=== PATIENT | male | born 1945 | race Caucasian/White ===

== ENCOUNTER 2021-03-19 16:49 | Inpatient (IN) | payer OTHER ==
[2021-03-19] MEDS ORDERED: Polyethylene Glycol 3350 Powder 17 GM Packet PO PRN (19:14)
[2021-03-19] MEDS ORDERED: Sodium Chloride 0.9% 10 ML Syringe FLUSH PRN (19:14)
[2021-03-19] MEDS ORDERED: Ondansetron 4 MG/2 ML SDV IV PRN (19:14)
[2021-03-19] MEDS ORDERED: Acetaminophen 325 MG Tab PO PRN (19:14)
--- NOTE | 2021-03-19 19:30 | PCM.HP.2 ---
H&P History of Present Illness - General Date of Service: 03/19/21 Admit Problem/Dx: Admission Diagnosis/Problem Admission Diagnosis/Problem Hypoxia Source of Information: Patient, Old Records, Provider, RN Notes Reviewed History Limitations: Reports: No Limitations - History of Present Illness Initial Comments - Free Text/Narative: Mr. Reza is a 75-year-old gentleman who was admitted as a direct admission from [facility] in [facility] where he had been boarded in the emergency department because of lack of beds. He was admitted there because of progressive weakness and lightheadedness with shortness of breath. On evaluation in their emergency department he was found to be anemic with a hemoglobin of 7.4 as well as hypoxic. He first became ill around 13 February and developed progressive symptoms of cough weakness and shortness of breath. He was seen and evaluated on February 19 and at that time tested positive for Covid with hypoxia secondary to bilateral Covid pneumonia. He was hospitalized for 2 weeks at the [facility] in [place]. As part of that evaluation CT scan of the chest was obtained and he was found to have bilateral pulmonary emboli. He was started on anticoagulation and discharged home on Eliquis. After that hospitalization he was discharged home on supplemental oxygen at 2 L/min via nasal cannula. After discharge she initially felt well but approximately 5 days ago began to experience progressive weakness and lightheadedness. He did experience 1 episode of syncope. He typically has black stools because of iron supplement and had noted no obvious change in his stools. He has no prior history of GI bleeding or ulcer disease. He was seen in the [place] emergency department on March 16 because of his progressive symptoms. At that time he was found to be anemic and also hypoxic. CT scan of the chest was obtained which showed no evidence of new pulmonary emboli but did document bilateral pulmonary infiltrates. They were unable to transfer him to a higher level of care so he was boarded in their emergency department until today when he was excepted in transfer here. He is receive diuretic therapy through the weekend and had a good diuresis without significant improvement in symptoms. He was transfused 2 units of red blood cells and his hemoglobin has remained stable since transfusion with no evidence of active bleeding. He is also been started on broad-spectrum IV antibiotic therapy with vancomycin and meropenem. CRP had been significantly elevated in the 20s and today had improved to 7. He has required high level of supplemental oxygen, currently at 40 L and 65% FiO2. Subjectively he feels significantly improved over the past few days but does become short of breath and desaturates with fairly minimal exertion. - Related Data Allergies/Adverse Reactions: Allergies Allergy/AdvReac Type Severity Reaction Status Date / Time acetaminophen [From Vicodin] Allergy Disorientat Verified 03/19/21 19:05 ion cefepime Allergy Other Verified 03/19/21 19:05 hydrocodone [From Vicodin] Allergy Disorientat Verified 03/19/21 19:05 ion morphine Allergy Disorientat Verified 03/19/21 19:05 ion Penicillins Allergy Rash Verified 03/19/21 19:05 Sulfa (Sulfonamide Allergy Rash Verified 03/19/21 19:05 Antibiotics) Home Medications: Home Meds Cyproheptadine HCl 4 mg PO BEDTIME 03/19/21 [History] DULoxetine HCl [Cymbalta] 30 mg PO BID 03/19/21 [History] Docusate Sodium 100 mg PO DAILY 03/19/21 [History] Ferrous Sulfate 325 mg PO BID 03/19/21 [History] Gabapentin [Neurontin] 1,200 mg PO BID 03/19/21 [History] Losartan Potassium 50 mg PO DAILY 03/19/21 [History] Metoprolol Succinate 50 mg PO QAM 03/19/21 [History] Mirtazapine 30 mg PO BEDTIME 03/19/21 [History] Multivitamin 1 tab PO DAILY 03/19/21 [History] Oxybutynin 5 mg PO DAILY 03/19/21 [History] Sennosides/Docusate Sodium [Senna-Docusate Sodium Tablet] 1 - 2 tab PO BID 03/19/21 [History] Thiamine [Vitamin B-1] 100 mg PO DAILY 03/19/21 [History] atorvaSTATin [Lipitor] 40 mg PO BEDTIME 03/19/21 [History] Past Medical History HEENT History: Reports: Hard of Hearing, Impaired Vision Cardiovascular History: Reports: Blood Clots/VTE/DVT, Hypertension, SOB on Exertion Respiratory History: Reports: COPD, PE, SOB Genitourinary History: Reports: Other (See Below) Other Genitourinary History: bladder cancer [id number] Musculoskeletal History: Reports: Arthritis, Neck Pain, Chronic Other Musculoskeletal History: neck plates Neurological History: Reports: TIA Psychiatric History: Reports: PTSD Hematologic History: Reports: Blood Transfusion(s) Immunologic History: Reports: None Oncologic (Cancer) History: Reports: Bladder - Infectious Disease History Infectious Disease History: Reports: Chicken Pox - Past Surgical History HEENT Surgical History: Reports: LASIK Respiratory Surgical History: Reports: None Male Surgical History: Reports: None Social & Family History - Tobacco Use Tobacco Use Status *Q: Former Tobacco User Years of Tobacco use: 50 Packs/Tins Daily: 0.5 Used Tobacco, but Quit: Yes Month/Year Tobacco Last Used: 01/2021 Second Hand Smoke Exposure: No - Caffeine Use Caffeine Use: Reports: Coffee - Alcohol Use Days Per Week of Alcohol Use: 1 Number of Drinks Per Day: 1 Total Drinks Per Week: 1 Date of Last Drink: 01/26/21 - Recreational Drug Use Recreational Drug Use: No H&P Review of Systems - Review of Systems: Review Of Systems: See Below General: Reports: Malaise, Weakness, Fatigue. Denies: Fever, Chills HEENT: Reports: No Symptoms Pulmonary: Reports: Shortness of Breath. Denies: Wheezing, Pleuritic Chest Pain, Cough, Sputum, Hemoptysis Cardiovascular: Reports: Dyspnea on Exertion, Lightheadedness. Denies: Chest Pain, Palpitations, Orthopnea, PND, Edema Gastrointestinal: Reports: No Symptoms Genitourinary: Reports: Retention. Denies: Dysuria, Frequency, Burning, Pain Musculoskeletal: Reports: No Symptoms Skin: Reports: No Symptoms Psychiatric: Reports: No Symptoms Neurological: Reports: No Symptoms Hematologic/Lymphatic: Reports: No Symptoms Immunologic: Reports: No Symptoms Exam - Exam Exam: See Below - Vital Signs Vital Signs: Last Vital Signs Temp 98.1 F 03/19/21 18:20 Pulse 67 03/19/21 18:20 Resp 18 03/19/21 18:20 BP 106/42 L 03/19/21 18:20 Pulse Ox 97 03/19/21 18:20 Weight: 1873 lb 6.4 oz - Exam Quality Assessment: Supplemental Oxygen, Urinary Catheter, DVT Prophylaxis General: Alert, Oriented, Cooperative, Moderate Distress HEENT: Conjunctiva Clear, Hearing Intact, Mucosa Moist & Callahan, Normal Nasal Septum, Posterior Pharynx Clear, Pupils Equal Neck: Supple, Trachea Midline, +2 Carotid Pulse wo Bruit Lungs: Decreased Breath Sounds. No: Crackles, Rales, Rhonchi, Wheezing Cardiovascular: Regular Rate, Regular Rhythm, Normal S1, Normal S2. No: Systolic Murmur, Diastolic Murmur GI/Abdominal Exam: Soft, Non-Tender, No Organomegaly, No Distention Back Exam: Normal Inspection, Full Range of Motion Extremities: Non-Tender, No Pedal Edema Skin: Warm, Dry, Intact Neurological: Cranial Nerves Intact, Strength Equal Bilateral, Normal Speech, Normal Tone, Sensation Intact. No: Focal Deficit Neuro Extensive - Mental Status: Alert, Oriented x3, Normal Mood/Affect, Normal Cognition, Memory Intact Sepsis Event Note - Focused Exam Vital Signs: Vital Signs Temp Pulse Resp BP Pulse Ox 03/19/21 18:20 98.1 F 67 18 106/42 L 97 *Q Meaningful Use (ADM) - VTE *Q VTE Pharmacological Contraindications *Q: Active Hemorrhage - VTE Risk Assess *Q Each Risk Factor Represents 1 Point: Serious lung disease including pneumonia, Abnormal Pulmonary Function (COPD) Total Score 1 Point Risk Factors: 2 Each Risk Factor Represents 2 Points: Malignancy (present or previous) Total Score 2 Point Risk Factors: 2 Each Risk Factor Represents 3 Points: Age 75 Years or Greater, History of DVT/PE Total Score 3 Point Risk Factors: 6 Each Risk Factor Represents 5 Points: None Total Score 5 Point Risk Factors: 0 Venous Thromboembolism Risk Factor Score *Q: 10 Problem List Initiated/Reviewed/Updated: Yes Orders Last 24hrs: Active Orders 24 hr Category Date Time Status Patient Status [ADT] Routine ADT 03/19/21 19:14 Ordered Height and Weight [RC] DAILY Care 03/19/21 19:14 Ordered Intake and Output [RC] QSHIFT Care 03/19/21 19:14 Ordered Notify Provider Vital Signs [RC] ASDIRECTED Care 03/19/21 19:14 Ordered Oxygen Therapy [RC] PRN Care 03/19/21 19:14 Ordered Pulse Oximetry [RC] CONTINUOUS Care 03/19/21 19:15 Ordered Up With Assistance [RC] ASDIRECTED Care 03/19/21 19:14 Ordered Up to Chair [RC] QID Care 03/19/21 19:14 Ordered VTE/DVT Education [RC] Per Unit Routine Care 03/19/21 19:14 Ordered Vital Signs [RC] Q4H Care 03/19/21 19:14 Ordered Regular Diet [DIET] Diet 03/19/21 Dinner Ordered C-REACTIVE PROTEIN [CHEM] AM Lab 03/20/21 05:11 Ordered CBC WITH AUTO DIFF [HEME] AM Lab 03/20/21 05:11 Ordered COMPREHENSIVE METABOLIC PN,CMP [CHEM] AM Lab 03/20/21 05:11 Ordered D Dimer [D-DIMER QUANTITATIVE] [COAG] AM Lab 03/20/21 05:11 Ordered PROCALCITONIN [CHEM] DAILY Lab 03/19/21 19:30 Ordered Acetaminophen [TylenoL] Med 03/19/21 19:14 Ordered 650 mg PO Q4H PRN Cyproheptadine Med 03/19/21 21:00 Ordered 4 mg PO BEDTIME DULoxetine [Cymbalta] Med 03/19/21 21:00 Ordered 30 mg PO BID Docusate Sodium [Colace] Med 03/20/21 09:00 Ordered 100 mg PO DAILY Enoxaparin [Lovenox] Med 03/19/21 19:30 Ordered 80 mg SUBCUT Q12H Ferrous Sulfate Med 03/19/21 21:00 Ordered 325 mg PO BID Gabapentin [Neurontin] Med 03/19/21 21:00 Ordered 1,200 mg PO BID Losartan [Cozaar] Med 03/20/21 09:00 Ordered 50 mg PO DAILY Meropenem [Merrem] 1 gm Med 03/19/21 19:30 Ordered Sodium Chloride 0.9% [Normal Saline] 100 ml IV Q8H Metoprolol Succinate [Toprol XL] Med 03/20/21 09:00 Ordered 50 mg PO QAM Mirtazapine [Mirtazapine] Med 03/19/21 21:00 Ordered 30 mg PO BEDTIME Ondansetron [Zofran] Med 03/19/21 19:14 Ordered 4 mg IV Q4H PRN Oxybutynin Med 03/20/21 09:00 Ordered 5 mg PO DAILY Pantoprazole [ProTONIX IV] Med 03/19/21 19:15 Ordered 40 mg IV Q12H Sodium Chloride 0.9% [Saline Flush] Med 03/19/21 19:14 Ordered 10 ml FLUSH ASDIRECTED PRN Thiamine [Vitamin B-1] Med 03/20/21 09:00 Ordered 100 mg PO DAILY Vancomycin Med 03/19/21 20:00 Ordered 1 gm IV .PHARMACY TO DOSE atorvaSTATin [Lipitor] Med 03/19/21 21:00 Ordered 40 mg PO BEDTIME methylPREDNISolone Sod Succ [Solu-MEDROL] Med 03/19/21 19:30 Ordered 40 mg IVPUSH Q8H polyethylene glycoL 3350 [MiraLAX] Med 03/19/21 19:14 Ordered 17 gm PO DAILY PRN Saline Lock Insert [OM.PC] Routine Oth 03/19/21 19:14 Ordered VTE Pharmacological Contraindications [AST] Per Unit Oth 03/19/21 19:14 Ordered Routine Resuscitation Status Routine Resus Stat 03/19/21 19:14 Ordered Medication Orders Acetaminophen (Acetaminophen 325 Mg Tab) 650 mg PO Q4H PRN PRN Reason: Pain (Mild 1-3)/fever Cyproheptadine HCl (Cyproheptadine 4 Mg Tab) 4 mg PO BEDTIME DELMI Docusate Sodium (Docusate Sodium 100 Mg Cap) 100 mg PO DAILY DELMI Duloxetine HCl (Duloxetine 30 Mg Cap) 30 mg PO BID DELMI Enoxaparin Sodium (Enoxaparin 80 Mg/0.8 Ml Syringe) 80 mg SUBCUT Q12H DELMI Ferrous Sulfate (Ferrous Sulfate 325 Mg Tab) 325 mg PO BID DELMI Meropenem 1 gm/ Sodium (Chloride) 100 mls @ 200 mls/hr IV Q8H DELMI Losartan Potassium (Losartan 50 Mg Tab) 50 mg PO DAILY DELMI Methylprednisolone Sodium Succinate (Methylprednisolone Sodium Succinate 40 Mg/1 Ml Sdv) 40 mg IVPUSH Q8H DELMI Metoprolol Succinate (Metoprolol Succinate 50 Mg Tab.Er) 50 mg PO QAM [facility] Non-Formulary Medication (Atorvastatin [Lipitor]) 40 mg PO BEDTIME DELMI Non-Formulary Medication (Gabapentin [Neurontin]) 1,200 mg PO BID DELMI Non-Formulary Medication (Mirtazapine [Mirtazapine]) 30 mg PO BEDTIME DELMI Ondansetron HCl (Ondansetron 4 Mg/2 Ml Sdv) 4 mg IV Q4H PRN PRN Reason: Nausea/Vomiting Oxybutynin Chloride (Oxybutynin 5 Mg Tab) 5 mg PO DAILY DELMI Pantoprazole Sodium (Pantoprazole 40 Mg Vial) 40 mg IV Q12H DELMI Polyethylene Glycol (Polyethylene Glycol 3350 Powder 17 Gm Packet) 17 gm PO DAILY PRN PRN Reason: Constipation Sodium Chloride (Sodium Chloride 0.9% 10 Ml Syringe) 10 ml FLUSH ASDIRECTED PRN PRN Reason: Keep Vein Open Thiamine HCl (Thiamine 100 Mg Tab) 100 mg PO DAILY DELMI Vancomycin HCl (Vancomycin 1 Gm Sdv) 1 gm IV .PHARMACY TO DOSE DELMI Assessment/Plan Comment:: ASSESSMENT AND PLAN ACUTE ON SUBACUTE HYPOXIC RESPIRATORY FAILURE-secondary to underlying COPD, recent Covid pneumonia, bilateral pulmonary emboli, and probable acute bacterial pneumonia. CT scan obtained in [place] showed no evidence of new pulmonary emboli. He has been diuresed over the past few days without significant improvement in oxygenation. Continues to require relatively high level of supplemental oxygen. -Continue supplemental oxygen -Continuous pulse oximetry -Solu-Medrol 40 mg IV every 8 hours BACTERIAL PNEUMONIA-most likely cause of significant worsening of shortness of breath and hypoxia. -Blood and bacterial cultures obtained in [place] and are pending -Continue current antibiotic therapy with vancomycin and meropenem PROBABLE GI BLEED-significant drop in hemoglobin noted associated with symptoms of weakness and lightheadedness. Hemoglobin has been stable following transfusion of 2 units of red blood cells with no further evidence of active bleeding. -Serial hemoglobin levels -Protonix 40 mg IV every 12 hours -Hold on endoscopy until respiratory status has stabilized ACUTE BLOOD LOSS ANEMIA-likely secondary to recent GI bleed -Management as above BILATERAL PULMONARY EMBOLI-associated with recent COVID-19 infection and pneumonia -Lovenox 80 mg subcu every 12 hours -Discontinue Lovenox with any further evidence of active bleeding URINARY RETENTION-identified while he was in [place] and a urinary catheter was placed at that time -Start Flomax 0.4 mg p.o. daily -Attempt to remove urinary catheter in a few days MAINTENANCE ISSUES -DVT prophylaxis; Lovenox as above -GI prophylaxis; Protonix as above -Aquino catheter; currently in place because of urinary retention -Nutrition; regular diet -Nicotine dependence; not required CODE STATUS-full code ADMISSION STATUS-patient will be admitted to inpatient status, expect at least a 2 night hospital stay for evaluation and management of problems as outlined above. At the time of this admission I do not reasonably expected evaluation and management of this problem will require more than a 96 hour hospital stay. DISPOSITION-anticipate discharge to home after the hospital stay. PRIMARY CARE PROVIDER-patient is from out of the community and receives his [facility] care in [facility] - Mortality Measure Prognosis:: Good
[2021-03-19] MEDS ORDERED: Vancomycin 1 GM SDV IV SCH (20:00)
[2021-03-19] MEDS: Meropenem 1 GM in Sodium Chloride 0.9% 100 ML IV SCH (20:33)
[2021-03-19] MEDS: Pantoprazole 40 MG Vial IV SCH (20:33)
[2021-03-19] MEDS: methylPREDNISolone Sodium Succinate 40 MG/1 ML SDV IVPUSH SCH (20:34)
[2021-03-19] MEDS: atorvaSTATin 20 MG Tab PO SCH (20:45)
[2021-03-19] MEDS: Mirtazapine 15 MG Tab PO SCH (20:45)
[2021-03-19] MEDS: DULoxetine 30 MG Cap PO SCH (20:45)
[2021-03-19] MEDS: Enoxaparin 80 MG/0.8 ML Syringe SUBCUT SCH (20:45)
[2021-03-19] MEDS: Gabapentin 400 MG Cap PO SCH (20:45)
[2021-03-19] MEDS: Ferrous Sulfate 325 MG Tab PO SCH (20:45)
[2021-03-19] MEDS: Cyproheptadine 4 MG Tab PO SCH (20:53)
[2021-03-20] MEDS: Meropenem 1 GM in Sodium Chloride 0.9% 100 ML IV SCH ×3 (03:35→20:16)
[2021-03-20] MEDS: methylPREDNISolone Sodium Succinate 40 MG/1 ML SDV IVPUSH SCH ×3 (03:35→20:14)
[2021-03-20] MEDS: Pantoprazole 40 MG Vial IV SCH ×2 (07:49→20:11)
[2021-03-20] MEDS: Gabapentin 400 MG Cap PO SCH ×2 (09:00→20:25)
[2021-03-20] MEDS: Losartan 50 MG Tab PO SCH (09:00)
[2021-03-20] MEDS: DULoxetine 30 MG Cap PO SCH ×2 (09:00→20:28)
[2021-03-20] MEDS: Oxybutynin 5 MG Tab PO SCH (09:00)
[2021-03-20] MEDS: Thiamine 100 MG Tab PO SCH (09:00)
[2021-03-20] MEDS: Enoxaparin 80 MG/0.8 ML Syringe SUBCUT SCH (09:00)
[2021-03-20] MEDS: Docusate Sodium 100 MG Cap PO SCH (09:00)
[2021-03-20] MEDS: Ferrous Sulfate 325 MG Tab PO SCH ×2 (09:00→20:26)
[2021-03-20] MEDS: Metoprolol Succinate 50 MG Tab.ER PO SCH (09:01)
[2021-03-20] MEDS ORDERED: Tiotropium BR/Olodaterol HCL 4 GM Inhalation Spray 2.5mcg/1 dose; 10 doses INH SCH (12:00)
[2021-03-20] MEDS: Tiotropium BR/Olodaterol HCL 4 GM Inhalation Spray 2.5mcg/1 dose; 10 doses INH SCH (12:45)
--- NOTE | 2021-03-20 16:08 | PCM.PN ---
- General Info Date of Service: 03/20/21 Subjective Update: Mr. Reza has continued to require high flow humidified oxygen since admission. Oxygen requirements have increased mildly since yesterday. Subjectively he feels improved and is somewhat stronger. Hemoglobin has remained relatively stable and there has been no evidence of active bleeding thus far. Functional Status: Reports: Tolerating Diet, Urinating - Review of Systems General: Reports: Weakness, Fatigue. Denies: Fever, Chills Pulmonary: Reports: Shortness of Breath, Cough. Denies: Pleuritic Chest Pain, Sputum, Hemoptysis, Wheezing Cardiovascular: Reports: Dyspnea on Exertion. Denies: Chest Pain, Palpitations, Orthopnea, PND, Edema, Lightheadedness Gastrointestinal: Reports: No Symptoms Genitourinary: Reports: No Symptoms - Patient Data Vitals - Most Recent: Last Vital Signs Temp 98.4 F 03/20/21 15:00 Pulse 69 03/20/21 15:00 Resp 18 03/20/21 15:00 BP 116/86 03/20/21 15:00 Pulse Ox 96 03/20/21 15:00 Weight - Most Recent: 192 lb 9.6 oz I&O - Last 24 Hours: Intake & Output 03/20/21 03/20/21 03/20/21 06:59 14:59 22:59 Intake Total 400 2130 Output Total 850 Balance -450 2130 Lab Results Last 24 Hours: Laboratory Results - last 24 hr 03/19/21 03/20/21 03/20/21 Range/Units 19:36 04:15 04:15 WBC 11.6 H (4.5-11.0) K/uL RBC 3.00 L (4.30-5.90) M/uL Hgb 8.5 L (12.0-15.0) g/dL Hct 27.4 L (40.0-54.0) % MCV 91 (80-98) fL MCH 28 (27-31) pg MCHC 31 L (32-36) % Plt Count 269 (150-400) K/uL Neut % (Auto) 87.5 H (36-66) % Lymph % (Auto) 8.1 L (24-44) % [place] % (Auto) 4.2 (2-6) % Eos % (Auto) 0.1 L (2-4) % Baso % (Auto) 0.1 (0-1) % D-Dimer, Quantitative 2677.39 H (0.0-500.0) ng/mL Sodium (140-148) mmol/L Potassium (3.6-5.2) mmol/L Chloride (100-108) mmol/L Carbon Dioxide (21-32) mmol/L Anion Gap (5.0-14.0) mmol/L BUN (7-18) mg/dL Creatinine (0.8-1.3) mg/dL Est Cr Clr Drug Dosing mL/min Estimated GFR (MDRD) (>60) Glucose (74-106) mg/dL Calcium (8.5-10.1) mg/dL Total Bilirubin (0.2-1.0) mg/dL AST (15-37) U/L ALT (12-78) U/L Alkaline Phosphatase (46-116) U/L C-Reactive Protein (0.0-0.3) mg/dL Total Protein (6.4-8.2) g/dL Albumin (3.4-5.0) g/dL Globulin (2.3-3.5) g/dL Albumin/Globulin Ratio (1.2-2.2) Procalcitonin 0.12 ng/mL 03/20/21 Range/Units 04:15 WBC (4.5-11.0) K/uL RBC (4.30-5.90) M/uL Hgb (12.0-15.0) g/dL Hct (40.0-54.0) % MCV (80-98) fL MCH (27-31) pg MCHC (32-36) % Plt Count (150-400) K/uL Neut % (Auto) (36-66) % Lymph % (Auto) (24-44) % [place] % (Auto) (2-6) % Eos % (Auto) (2-4) % Baso % (Auto) (0-1) % D-Dimer, Quantitative (0.0-500.0) ng/mL Sodium 140 (140-148) mmol/L Potassium 4.4 (3.6-5.2) mmol/L Chloride 103 (100-108) mmol/L Carbon Dioxide 33 H (21-32) mmol/L Anion Gap 8.4 (5.0-14.0) mmol/L BUN 26 H (7-18) mg/dL Creatinine 0.7 L (0.8-1.3) mg/dL Est Cr Clr Drug Dosing 94.15 mL/min Estimated GFR (MDRD) > 60 (>60) Glucose 125 H (74-106) mg/dL Calcium 8.3 L (8.5-10.1) mg/dL Total Bilirubin 0.2 (0.2-1.0) mg/dL AST 15 (15-37) U/L ALT 17 (12-78) U/L Alkaline Phosphatase 73 (46-116) U/L C-Reactive Protein 3.33 H (0.0-0.3) mg/dL Total Protein 5.8 L (6.4-8.2) g/dL Albumin 1.7 L (3.4-5.0) g/dL Globulin 4.1 H (2.3-3.5) g/dL Albumin/Globulin Ratio 0.4 L (1.2-2.2) Procalcitonin ng/mL Med Orders - Current: Current Medications Acetaminophen (Acetaminophen 325 Mg Tab) 650 mg PO Q4H PRN PRN Reason: Pain (Mild 1-3)/fever Atorvastatin Calcium (Atorvastatin 20 Mg Tab) 40 mg PO BEDTIME [facility] Last Admin: 03/19/21 20:45 Dose: 40 mg Documented by: Cyproheptadine HCl (Cyproheptadine 4 Mg Tab) 4 mg PO BEDTIME [facility] Last Admin: 03/19/21 20:53 Dose: 4 mg Documented by: Docusate Sodium (Docusate Sodium 100 Mg Cap) 100 mg PO DAILY [facility] Last Admin: 03/20/21 09:00 Dose: 100 mg Documented by: Duloxetine HCl (Duloxetine 30 Mg Cap) 30 mg PO BID [facility] Last Admin: 03/20/21 09:00 Dose: 30 mg Documented by: Enoxaparin Sodium (Enoxaparin 80 Mg/0.8 Ml Syringe) 80 mg SUBCUT Q12H [facility] Last Admin: 03/20/21 09:00 Dose: 80 mg Documented by: Ferrous Sulfate (Ferrous Sulfate 325 Mg Tab) 325 mg PO BID [facility] Last Admin: 03/20/21 09:00 Dose: 325 mg Documented by: Gabapentin (Gabapentin 400 Mg Cap) 1,200 mg PO BID [facility] Last Admin: 03/20/21 09:00 Dose: 1,200 mg Documented by: Meropenem 1 gm/ Sodium (Chloride) 100 mls @ 200 mls/hr IV Q8H [facility] Last Admin: 03/20/21 12:44 Dose: 200 mls/hr Documented by: Vancomycin HCl 1.25 gm/ Sodium (Chloride) 250 mls @ 166.667 mls/hr IV Q12H [facility] Last Admin: 03/20/21 09:05 Dose: 166.667 mls/hr Documented by: Losartan Potassium (Losartan 50 Mg Tab) 50 mg PO DAILY [facility] Last Admin: 03/20/21 09:00 Dose: 50 mg Documented by: Methylprednisolone Sodium Succinate (Methylprednisolone Sodium Succinate 40 Mg/1 Ml Sdv) 40 mg IVPUSH Q8H [facility] Last Admin: 03/20/21 11:43 Dose: 40 mg Documented by: Metoprolol Succinate (Metoprolol Succinate 50 Mg Tab.Er) 50 mg PO QAM [facility] Last Admin: 03/20/21 09:01 Dose: 50 mg Documented by: Mirtazapine (Mirtazapine 15 Mg Tab) 30 mg PO BEDTIME [facility] Last Admin: 03/19/21 20:45 Dose: 30 mg Documented by: Mometasone Furoate (Mometasone Furoate Hfa 200 Mcg/Puff 13 Gm Inhaler) 0 gm INH BIDRT [facility] Ondansetron HCl (Ondansetron 4 Mg/2 Ml Sdv) 4 mg IV Q4H PRN PRN Reason: Nausea/Vomiting Oxybutynin Chloride (Oxybutynin 5 Mg Tab) 5 mg PO DAILY [facility] Last Admin: 03/20/21 09:00 Dose: 5 mg Documented by: Pantoprazole Sodium (Pantoprazole 40 Mg Vial) 40 mg IV Q12H [facility] Last Admin: 03/20/21 07:49 Dose: 40 mg Documented by: Polyethylene Glycol (Polyethylene Glycol 3350 Powder 17 Gm Packet) 17 gm PO DAILY PRN PRN Reason: Constipation Sodium Chloride (Sodium Chloride 0.9% 10 Ml Syringe) 10 ml FLUSH ASDIRECTED PRN PRN Reason: Keep Vein Open Thiamine HCl (Thiamine 100 Mg Tab) 100 mg PO DAILY [facility] Last Admin: 03/20/21 09:00 Dose: 100 mg Documented by: Discontinued Medications Methylprednisolone Sodium Succinate (Methylprednisolone Sodium Succinate 40 Mg/1 Ml Sdv) 40 mg IVPUSH Q8H [facility] Last Admin: 03/20/21 03:35 Dose: 40 mg Documented by: Vancomycin HCl (Vancomycin 1 Gm Sdv) 1 gm IV .PHARMACY TO DOSE [facility] Stop: 03/20/21 08:00 - Exam Quality Assessment: Supplemental Oxygen, Urine Catheter, DVT Prophylaxis General: Alert, Oriented, Cooperative, Moderate Distress Lungs: Decreased Breath Sounds, Crackles. No: Rales, Rhonchi, Wheezing Cardiovascular: Regular Rate, Regular Rhythm, No Murmurs GI/Abdominal Exam: Soft, Non-Tender, No Organomegaly, No Distention Extremities: Non-Tender, No Pedal Edema - Patient Data Lab Results Last 24 hrs: Laboratory Results - last 24 hr 03/19/21 03/20/21 03/20/21 Range/Units 19:36 04:15 04:15 WBC 11.6 H (4.5-11.0) K/uL RBC 3.00 L (4.30-5.90) M/uL Hgb 8.5 L (12.0-15.0) g/dL Hct 27.4 L (40.0-54.0) % MCV 91 (80-98) fL MCH 28 (27-31) pg MCHC 31 L (32-36) % Plt Count 269 (150-400) K/uL Neut % (Auto) 87.5 H (36-66) % Lymph % (Auto) 8.1 L (24-44) % [place] % (Auto) 4.2 (2-6) % Eos % (Auto) 0.1 L (2-4) % Baso % (Auto) 0.1 (0-1) % D-Dimer, Quantitative 2677.39 H (0.0-500.0) ng/mL Sodium (140-148) mmol/L Potassium (3.6-5.2) mmol/L Chloride (100-108) mmol/L Carbon Dioxide (21-32) mmol/L Anion Gap (5.0-14.0) mmol/L BUN (7-18) mg/dL Creatinine (0.8-1.3) mg/dL Est Cr Clr Drug Dosing mL/min Estimated GFR (MDRD) (>60) Glucose (74-106) mg/dL Calcium (8.5-10.1) mg/dL Total Bilirubin (0.2-1.0) mg/dL AST (15-37) U/L ALT (12-78) U/L Alkaline Phosphatase (46-116) U/L C-Reactive Protein (0.0-0.3) mg/dL Total Protein (6.4-8.2) g/dL Albumin (3.4-5.0) g/dL Globulin (2.3-3.5) g/dL Albumin/Globulin Ratio (1.2-2.2) Procalcitonin 0.12 ng/mL 03/20/21 Range/Units 04:15 WBC (4.5-11.0) K/uL RBC (4.30-5.90) M/uL Hgb (12.0-15.0) g/dL Hct (40.0-54.0) % MCV (80-98) fL MCH (27-31) pg MCHC (32-36) % Plt Count (150-400) K/uL Neut % (Auto) (36-66) % Lymph % (Auto) (24-44) % [place] % (Auto) (2-6) % Eos % (Auto) (2-4) % Baso % (Auto) (0-1) % D-Dimer, Quantitative (0.0-500.0) ng/mL Sodium 140 (140-148) mmol/L Potassium 4.4 (3.6-5.2) mmol/L Chloride 103 (100-108) mmol/L Carbon Dioxide 33 H (21-32) mmol/L Anion Gap 8.4 (5.0-14.0) mmol/L BUN 26 H (7-18) mg/dL Creatinine 0.7 L (0.8-1.3) mg/dL Est Cr Clr Drug Dosing 94.15 mL/min Estimated GFR (MDRD) > 60 (>60) Glucose 125 H (74-106) mg/dL Calcium 8.3 L (8.5-10.1) mg/dL Total Bilirubin 0.2 (0.2-1.0) mg/dL AST 15 (15-37) U/L ALT 17 (12-78) U/L Alkaline Phosphatase 73 (46-116) U/L C-Reactive Protein 3.33 H (0.0-0.3) mg/dL Total Protein 5.8 L (6.4-8.2) g/dL Albumin 1.7 L (3.4-5.0) g/dL Globulin 4.1 H (2.3-3.5) g/dL Albumin/Globulin Ratio 0.4 L (1.2-2.2) Procalcitonin ng/mL Result Diagrams: 03/20/21 04:15 03/20/21 04:15 Sepsis Event Note - Evaluation Sepsis Screening Result: No Definite Risk - Focused Exam Vital Signs: Vital Signs Temp Pulse Pulse Resp BP BP Pulse Ox 03/20/21 15:00 98.4 F 69 18 116/86 96 03/20/21 11:00 98.5 F 73 16 118/42 L 95 03/20/21 09:01 89 119/49 L 03/20/21 09:00 119/49 L 03/20/21 07:00 97.8 F 77 18 151/51 H 98 - Problem List Review Problem List Initiated/Reviewed/Updated: Yes - My Orders Last 24 Hours: My Active Orders 03/19/21 Dinner Regular Diet [DIET] 03/19/21 19:14 Patient Status [ADT] Routine Height and Weight [RC] DAILY Intake and Output [RC] QSHIFT Notify Provider Vital Signs [RC] ASDIRECTED Oxygen Therapy [RC] PRN Up With Assistance [RC] ASDIRECTED Up to Chair [RC] QID Vital Signs [RC] Q4H Acetaminophen [TylenoL] 650 mg PO Q4H PRN Ondansetron [Zofran] 4 mg IV Q4H PRN Sodium Chloride 0.9% [Saline Flush] 10 ml FLUSH ASDIRECTED PRN polyethylene glycoL 3350 [MiraLAX] 17 gm PO DAILY PRN Saline Lock Insert [OM.PC] Routine VTE Pharmacological Contraindications [AST] Per Unit Routine Resuscitation Status Routine 03/19/21 19:15 Pulse Oximetry [RC] CONTINUOUS 03/19/21 20:00 Pantoprazole [ProTONIX IV] 40 mg IV Q12H 03/19/21 20:30 Meropenem [Merrem] 1 gm Sodium Chloride 0.9% [Normal Saline] 100 ml IV Q8H 03/19/21 21:00 Cyproheptadine 4 mg PO BEDTIME DULoxetine [Cymbalta] 30 mg PO BID Enoxaparin [Lovenox] 80 mg SUBCUT Q12H Ferrous Sulfate 325 mg PO BID Gabapentin [Neurontin] 1,200 mg PO BID Mirtazapine [Remeron] 30 mg PO BEDTIME Vancomycin 1.25 gm Sodium Chloride 0.9% [Normal Saline] 250 ml IV Q12H atorvaSTATin [Lipitor] 40 mg PO BEDTIME 03/20/21 09:00 Docusate Sodium [Colace] 100 mg PO DAILY Losartan [Cozaar] 50 mg PO DAILY Metoprolol Succinate [Toprol XL] 50 mg PO QAM Oxybutynin 5 mg PO DAILY Thiamine [Vitamin B-1] 100 mg PO DAILY 03/20/21 12:00 methylPREDNISolone Sod Succ [Solu-MEDROL] 40 mg IVPUSH Q8H 03/20/21 12:30 Tiotropium BR/Olodaterol HCL [Stiolto Respimat] 0 gm INH DAILYRT 03/20/21 17:00 HGB [HEMOGLOBIN] [HEME] Stat 03/20/21 21:00 Mometasone Furoate 200mcg [Asmanex HFA 200mcg] 0 gm INH BIDRT 03/21/21 05:00 CBC WITH AUTO DIFF [HEME] Timed COMPREHENSIVE METABOLIC PN,CMP [CHEM] Timed 03/21/21 08:30 VANCOMYCIN TROUGH [CHEM] Timed - Plan Plan:: ASSESSMENT AND PLAN ACUTE ON SUBACUTE HYPOXIC RESPIRATORY FAILURE-secondary to underlying COPD, recent Covid pneumonia, bilateral pulmonary emboli, and probable acute bacterial pneumonia. CT scan obtained in [place] showed no evidence of new pulmonary emboli. Continues to require relatively high level of supplemental oxygen. -Continue supplemental oxygen -Continuous pulse oximetry -Solu-Medrol 40 mg IV every 8 hours BACTERIAL PNEUMONIA-most likely cause of significant worsening of shortness of breath and hypoxia. -Blood and bacterial cultures obtained in [place] and are pending -Continue current antibiotic therapy with vancomycin and meropenem PROBABLE GI BLEED-significant drop in hemoglobin noted associated with symptoms of weakness and lightheadedness. Hemoglobin has been stable following transfusion of 2 units of red blood cells with no further evidence of active bleeding. -Serial hemoglobin levels -Protonix 40 mg IV every 12 hours -Hold on endoscopy until respiratory status has stabilized ACUTE BLOOD LOSS ANEMIA-likely secondary to recent GI bleed -Management as above BILATERAL PULMONARY EMBOLI-associated with recent COVID-19 infection and pneumonia -Lovenox 80 mg subcu every 12 hours -Discontinue Lovenox with any further evidence of active bleeding URINARY RETENTION-identified while he was in [place] and a urinary catheter was placed at that time -Start Flomax 0.4 mg p.o. daily -Attempt to remove urinary catheter in a few days MAINTENANCE ISSUES -DVT prophylaxis; Lovenox as above -GI prophylaxis; Protonix as above -Aquino catheter; currently in place because of urinary retention -Nutrition; regular diet -Nicotine dependence; not required CODE STATUS-full code ADMISSION STATUS-patient will be admitted to inpatient status, expect at least a 2 night hospital stay for evaluation and management of problems as outlined above. At the time of this admission I do not reasonably expected evaluation a nd management of this problem will require more than a 96 hour hospital stay. DISPOSITION-anticipate discharge to home after the hospital stay. PRIMARY CARE PROVIDER-patient is from out of the community and receives his health care in [facility]
[2021-03-20] MEDS: Mometasone Furoate HFA 200 mcg/Puff 13 GM Inhaler INH SCH (20:22)
[2021-03-20] MEDS: Mirtazapine 15 MG Tab PO SCH (20:25)
[2021-03-20] MEDS: atorvaSTATin 20 MG Tab PO SCH (20:27)
[2021-03-20] MEDS: Cyproheptadine 4 MG Tab PO SCH (20:27)
[2021-03-21] MEDS: methylPREDNISolone Sodium Succinate 40 MG/1 ML SDV IVPUSH SCH ×3 (04:12→20:24)
[2021-03-21] MEDS: Meropenem 1 GM in Sodium Chloride 0.9% 100 ML IV SCH ×3 (04:12→20:25)
[2021-03-21] MEDS: Pantoprazole 40 MG Vial IV SCH ×2 (07:39→20:24)
[2021-03-21] MEDS: Mometasone Furoate HFA 200 mcg/Puff 13 GM Inhaler INH SCH ×2 (07:39→20:26)
[2021-03-21] MEDS: Tiotropium BR/Olodaterol HCL 4 GM Inhalation Spray 2.5mcg/1 dose; 10 doses INH SCH (07:39)
--- NOTE | 2021-03-21 08:23 | PCM.CONS ---
H&P History of Present Illness - General Date of Service: 03/21/21 Admit Problem/Dx: Admission Diagnosis/Problem Admission Diagnosis/Problem Patient was admitted for Covid 19. His hemoglobin was low and a consultation was made to surgery for a Colonoscopy when he is stable. Source of Information: Old Records, Provider - History of Present Illness Initial Comments - Free Text/Narative: Surgery was consulted for anemia. Patient will need an endoscopy to rule out GI Bleed. Patient currently has Covid. - Related Data Allergies/Adverse Reactions: Allergies Allergy/AdvReac Type Severity Reaction Status Date / Time cefepime Allergy Other Verified 03/19/21 19:05 Penicillins Allergy Rash Verified 03/19/21 19:05 Sulfa (Sulfonamide Allergy Rash Verified 03/19/21 19:05 Antibiotics) acetaminophen [From Vicodin] AdvReac Disorientat Verified 03/20/21 09:42 ion hydrocodone [From Vicodin] AdvReac Disorientat Verified 03/20/21 09:42 ion morphine AdvReac Disorientat Verified 03/20/21 09:42 ion Home Medications: Home Meds Cyproheptadine HCl 4 mg PO BEDTIME 03/19/21 [History] DULoxetine HCl [Cymbalta] 30 mg PO BID 03/19/21 [History] Docusate Sodium 100 mg PO DAILY 03/19/21 [History] Ferrous Sulfate 325 mg PO BID 03/19/21 [History] Gabapentin [Neurontin] 1,200 mg PO BID 03/19/21 [History] Losartan Potassium 50 mg PO DAILY 03/19/21 [History] Metoprolol Succinate 50 mg PO QAM 03/19/21 [History] Mirtazapine 30 mg PO BEDTIME 03/19/21 [History] Multivitamin 1 tab PO DAILY 03/19/21 [History] Oxybutynin 5 mg PO DAILY 03/19/21 [History] Sennosides/Docusate Sodium [Senna-Docusate Sodium Tablet] 1 - 2 tab PO BID 03/19/21 [History] Thiamine [Vitamin B-1] 100 mg PO DAILY 03/19/21 [History] atorvaSTATin [Lipitor] 40 mg PO BEDTIME 03/19/21 [History] Mometasone Furoate 200mcg [Asmanex HFA 200mcg] 2 puff PO BID 03/20/21 [History] Tiotropium Br/Olodaterol HCl [Stiolto Respimat Inhal [place]] 2 inhalation PO DAILY 03/20/21 [History] Past Medical History HEENT History: Reports: Hard of Hearing, Impaired Vision Cardiovascular History: Reports: Blood Clots/VTE/DVT, Hypertension, SOB on Exertion Respiratory History: Reports: COPD, PE, SOB Genitourinary History: Reports: Other (See Below) Other Genitourinary History: bladder cancer [id number] Musculoskeletal History: Reports: Arthritis, Neck Pain, Chronic Other Musculoskeletal History: neck plates Neurological History: Reports: TIA Psychiatric History: Reports: PTSD Hematologic History: Reports: Blood Transfusion(s) Immunologic History: Reports: None Oncologic (Cancer) History: Reports: Bladder - Infectious Disease History Infectious Disease History: Reports: Chicken Pox - Past Surgical History HEENT Surgical History: Reports: LASIK Respiratory Surgical History: Reports: None Male Surgical History: Reports: None Social & Family History - Tobacco Use Tobacco Use Status *Q: Former Tobacco User Years of Tobacco use: 50 Packs/Tins Daily: 0.5 Used Tobacco, but Quit: Yes Month/Year Tobacco Last Used: 01/2021 Second Hand Smoke Exposure: No - Caffeine Use Caffeine Use: Reports: Coffee - Alcohol Use Days Per Week of Alcohol Use: 1 Number of Drinks Per Day: 1 Total Drinks Per Week: 1 Date of Last Drink: 01/26/21 - Recreational Drug Use Recreational Drug Use: No H&P Review of Systems - Review of Systems: Review Of Systems: See Below General: Reports: Weakness, Fatigue, Decreased Appetite HEENT: Reports: No Symptoms Pulmonary: Reports: Shortness of Breath, Cough Cardiovascular: Reports: No Symptoms Gastrointestinal: Reports: No Symptoms Genitourinary: Reports: No Symptoms Musculoskeletal: Reports: No Symptoms Skin: Reports: No Symptoms Psychiatric: Reports: No Symptoms Neurological: Reports: Dizziness, Headache, Weakness Hematologic/Lymphatic: Reports: Anemia Immunologic: Reports: Other (Covid) Exam - Exam Exam: Not Obtained Reason Not Obtained: Deferred - Vital Signs Vital Signs: Last Vital Signs Temp 97.7 F 03/21/21 07:08 Pulse 70 03/21/21 07:08 Resp 20 03/21/21 07:08 BP 155/60 H 03/21/21 07:08 Pulse Ox 93 L 03/21/21 07:08 Weight: 192 lb - Patient Data Lab Results Last 24 hrs: Laboratory Results - last 24 hr 03/20/21 03/20/21 03/21/21 Range/Units 16:50 16:54 05:40 WBC 11.0 (4.5-11.0) K/uL RBC 2.97 L (4.30-5.90) M/uL Hgb 7.9 L 8.4 L (12.0-15.0) g/dL Hct 27.3 L (40.0-54.0) % MCV 92 (80-98) fL MCH 28 (27-31) pg MCHC 31 L (32-36) % Plt Count 309 (150-400) K/uL Add Manual Diff Yes Neutrophils % (Manual) 86 H (36-66) % Lymphocytes % (Manual) 12 L (24-44) % Monocytes % (Manual) 2 (2-6) % Sodium (140-148) mmol/L Potassium (3.6-5.2) mmol/L Chloride (100-108) mmol/L Carbon Dioxide (21-32) mmol/L Anion Gap (5.0-14.0) mmol/L BUN (7-18) mg/dL Creatinine (0.8-1.3) mg/dL Est Cr Clr Drug Dosing mL/min Estimated GFR (MDRD) (>60) Glucose (74-106) mg/dL Calcium (8.5-10.1) mg/dL Total Bilirubin (0.2-1.0) mg/dL AST (15-37) U/L ALT (12-78) U/L Alkaline Phosphatase (46-116) U/L Total Protein (6.4-8.2) g/dL Albumin (3.4-5.0) g/dL Globulin (2.3-3.5) g/dL Albumin/Globulin Ratio (1.2-2.2) Blood Type A NEGATIVE Gel Antibody Screen Negative Crossmatch See Detail 03/21/21 Range/Units 05:40 WBC (4.5-11.0) K/uL RBC (4.30-5.90) M/uL Hgb (12.0-15.0) g/dL Hct (40.0-54.0) % MCV (80-98) fL MCH (27-31) pg MCHC (32-36) % Plt Count (150-400) K/uL Add Manual Diff Neutrophils % (Manual) (36-66) % Lymphocytes % (Manual) (24-44) % Monocytes % (Manual) (2-6) % Sodium 139 L (140-148) mmol/L Potassium 5.1 (3.6-5.2) mmol/L Chloride 103 (100-108) mmol/L Carbon Dioxide 33 H (21-32) mmol/L Anion Gap 8.1 (5.0-14.0) mmol/L BUN 20 H (7-18) mg/dL Creatinine 0.7 L (0.8-1.3) mg/dL Est Cr Clr Drug Dosing 94.15 mL/min Estimated GFR (MDRD) > 60 (>60) Glucose 124 H (74-106) mg/dL Calcium 8.4 L (8.5-10.1) mg/dL Total Bilirubin 0.2 (0.2-1.0) mg/dL AST 17 (15-37) U/L ALT 27 (12-78) U/L Alkaline Phosphatase 74 (46-116) U/L Total Protein 5.6 L (6.4-8.2) g/dL Albumin 1.7 L (3.4-5.0) g/dL Globulin 3.9 H (2.3-3.5) g/dL Albumin/Globulin Ratio 0.4 L (1.2-2.2) Blood Type Gel Antibody Screen Crossmatch Result Diagrams: 03/21/21 05:40 03/21/21 05:40 Sepsis Event Note - Evaluation Sepsis Screening Result: No Definite Risk - Focused Exam Vital Signs: Vital Signs Temp Pulse Resp BP Pulse Ox 03/21/21 07:08 97.7 F 70 20 155/60 H 93 L 03/21/21 04:08 97.7 F 77 18 123/53 L 98 03/20/21 23:29 97.5 F 84 20 158/46 H 97 *Q Meaningful Use (ADM) - VTE *Q VTE Pharmacological Contraindications *Q: Active Hemorrhage Consult PN Assessment/Plan Problem List Initiated/Reviewed/Updated: Yes My Orders Last 24 Hours: Will hold on Endoscopy until patient is hemodynamic instability. Evaluate daily. Thank you for this consultation. Candice Vieira 03/21/2021
[2021-03-21] MEDS: Oxybutynin 5 MG Tab PO SCH (08:48)
[2021-03-21] MEDS: DULoxetine 30 MG Cap PO SCH ×2 (08:48→20:26)
[2021-03-21] MEDS: Gabapentin 400 MG Cap PO SCH ×2 (08:48→20:26)
[2021-03-21] MEDS: Thiamine 100 MG Tab PO SCH (08:48)
[2021-03-21] MEDS: Ferrous Sulfate 325 MG Tab PO SCH ×2 (08:48→20:28)
[2021-03-21] MEDS: Losartan 50 MG Tab PO SCH (08:48)
[2021-03-21] MEDS: Docusate Sodium 100 MG Cap PO SCH (08:48)
[2021-03-21] MEDS: Metoprolol Succinate 50 MG Tab.ER PO SCH (08:49)
--- NOTE | 2021-03-21 15:40 | PCM.PN ---
- General Info Date of Service: 03/21/21 Subjective Update: Mr. Reza continues to require high flow humidified oxygen. Oxygenation has not worsened over the last 24 hours. He feels improved with more energy and also feels that he recovers more quickly with exertion. Functional Status: Reports: Tolerating Diet, Urinating - Review of Systems General: Reports: Weakness, Fatigue. Denies: Fever, Chills Pulmonary: Reports: Shortness of Breath. Denies: Pleuritic Chest Pain, Cough, Sputum, Hemoptysis, Wheezing Cardiovascular: Reports: Dyspnea on Exertion. Denies: Chest Pain, Palpitations, Orthopnea, PND, Edema, Lightheadedness Gastrointestinal: Reports: No Symptoms Genitourinary: Reports: No Symptoms - Patient Data Vitals - Most Recent: Last Vital Signs Temp 98.4 F 03/21/21 15:01 Pulse 85 03/21/21 15:01 Resp 22 H 03/21/21 15:01 BP 158/48 H 03/21/21 15:01 Pulse Ox 92 L 03/21/21 15:01 Weight - Most Recent: 194 lb 7.163 oz I&O - Last 24 Hours: Intake & Output 03/21/21 03/21/21 03/21/21 06:59 14:59 22:59 Intake Total 550 2630 Output Total 1800 800 Balance -1250 1830 Lab Results Last 24 Hours: Laboratory Results - last 24 hr 03/20/21 03/20/21 03/21/21 Range/Units 16:50 16:54 05:40 WBC 11.0 (4.5-11.0) K/uL RBC 2.97 L (4.30-5.90) M/uL Hgb 7.9 L 8.4 L (12.0-15.0) g/dL Hct 27.3 L (40.0-54.0) % MCV 92 (80-98) fL MCH 28 (27-31) pg MCHC 31 L (32-36) % Plt Count 309 (150-400) K/uL Add Manual Diff Yes Neutrophils % (Manual) 86 H (36-66) % Lymphocytes % (Manual) 12 L (24-44) % Monocytes % (Manual) 2 (2-6) % Sodium (140-148) mmol/L Potassium (3.6-5.2) mmol/L Chloride (100-108) mmol/L Carbon Dioxide (21-32) mmol/L Anion Gap (5.0-14.0) mmol/L BUN (7-18) mg/dL Creatinine (0.8-1.3) mg/dL Est Cr Clr Drug Dosing mL/min Estimated GFR (MDRD) (>60) Glucose (74-106) mg/dL Calcium (8.5-10.1) mg/dL Total Bilirubin (0.2-1.0) mg/dL AST (15-37) U/L ALT (12-78) U/L Alkaline Phosphatase (46-116) U/L Total Protein (6.4-8.2) g/dL Albumin (3.4-5.0) g/dL Globulin (2.3-3.5) g/dL Albumin/Globulin Ratio (1.2-2.2) Vancomycin Trough (10.0-20.0) ug/mL Blood Type A NEGATIVE Gel Antibody Screen Negative Crossmatch See Detail 03/21/21 03/21/21 Range/Units 05:40 08:25 WBC (4.5-11.0) K/uL RBC (4.30-5.90) M/uL Hgb (12.0-15.0) g/dL Hct (40.0-54.0) % MCV (80-98) fL MCH (27-31) pg MCHC (32-36) % Plt Count (150-400) K/uL Add Manual Diff Neutrophils % (Manual) (36-66) % Lymphocytes % (Manual) (24-44) % Monocytes % (Manual) (2-6) % Sodium 139 L (140-148) mmol/L Potassium 5.1 (3.6-5.2) mmol/L Chloride 103 (100-108) mmol/L Carbon Dioxide 33 H (21-32) mmol/L Anion Gap 8.1 (5.0-14.0) mmol/L BUN 20 H (7-18) mg/dL Creatinine 0.7 L (0.8-1.3) mg/dL Est Cr Clr Drug Dosing 94.15 mL/min Estimated GFR (MDRD) > 60 (>60) Glucose 124 H (74-106) mg/dL Calcium 8.4 L (8.5-10.1) mg/dL Total Bilirubin 0.2 (0.2-1.0) mg/dL AST 17 (15-37) U/L ALT 27 (12-78) U/L Alkaline Phosphatase 74 (46-116) U/L Total Protein 5.6 L (6.4-8.2) g/dL Albumin 1.7 L (3.4-5.0) g/dL Globulin 3.9 H (2.3-3.5) g/dL Albumin/Globulin Ratio 0.4 L (1.2-2.2) Vancomycin Trough 12.7 (10.0-20.0) ug/mL Blood Type Gel Antibody Screen Crossmatch Med Orders - Current: Current Medications Acetaminophen (Acetaminophen 325 Mg Tab) 650 mg PO Q4H PRN PRN Reason: Pain (Mild 1-3)/fever Atorvastatin Calcium (Atorvastatin 20 Mg Tab) 40 mg PO BEDTIME [facility] Last Admin: 03/20/21 20:27 Dose: 40 mg Documented by: Cyproheptadine HCl (Cyproheptadine 4 Mg Tab) 4 mg PO BEDTIME [facility] Last Admin: 03/20/21 20:27 Dose: 4 mg Documented by: Docusate Sodium (Docusate Sodium 100 Mg Cap) 100 mg PO DAILY [facility] Last Admin: 03/21/21 08:48 Dose: Not Given Documented by: Duloxetine HCl (Duloxetine 30 Mg Cap) 30 mg PO BID [facility] Last Admin: 03/21/21 08:48 Dose: 30 mg Documented by: Ferrous Sulfate (Ferrous Sulfate 325 Mg Tab) 325 mg PO BID [facility] Last Admin: 03/21/21 08:48 Dose: 325 mg Documented by: Gabapentin (Gabapentin 400 Mg Cap) 1,200 mg PO BID [facility] Last Admin: 03/21/21 08:48 Dose: 1,200 mg Documented by: Meropenem 1 gm/ Sodium (Chloride) 100 mls @ 200 mls/hr IV Q8H [facility] Last Admin: 03/21/21 11:58 Dose: 200 mls/hr Documented by: Vancomycin HCl 1.5 gm/ Sodium (Chloride) 250 mls @ 166.667 mls/hr IV Q12H [facility] Losartan Potassium (Losartan 50 Mg Tab) 50 mg PO DAILY [facility] Last Admin: 03/21/21 08:48 Dose: 50 mg Documented by: Methylprednisolone Sodium Succinate (Methylprednisolone Sodium Succinate 40 Mg/1 Ml Sdv) 40 mg IVPUSH Q8H [facility] Last Admin: 03/21/21 11:54 Dose: 40 mg Documented by: Metoprolol Succinate (Metoprolol Succinate 50 Mg Tab.Er) 50 mg PO QAM [facility] Last Admin: 03/21/21 08:49 Dose: 50 mg Documented by: Mirtazapine (Mirtazapine 15 Mg Tab) 30 mg PO BEDTIME [facility] Last Admin: 03/20/21 20:25 Dose: 30 mg Documented by: Mometasone Furoate (Mometasone Furoate Hfa 200 Mcg/Puff 13 Gm Inhaler) 0 gm INH BIDRT [facility] Last Admin: 03/21/21 07:39 Dose: 2 puff Documented by: Ondansetron HCl (Ondansetron 4 Mg/2 Ml Sdv) 4 mg IV Q4H PRN PRN Reason: Nausea/Vomiting Oxybutynin Chloride (Oxybutynin 5 Mg Tab) 5 mg PO DAILY [facility] Last Admin: 03/21/21 08:48 Dose: 5 mg Documented by: Pantoprazole Sodium (Pantoprazole 40 Mg Vial) 40 mg IV Q12H [facility] Last Admin: 03/21/21 07:39 Dose: 40 mg Documented by: Polyethylene Glycol (Polyethylene Glycol 3350 Powder 17 Gm Packet) 17 gm PO DAILY PRN PRN Reason: Constipation Sodium Chloride (Sodium Chloride 0.9% 10 Ml Syringe) 10 ml FLUSH ASDIRECTED PRN PRN Reason: Keep Vein Open Tamsulosin HCl (Tamsulosin 0.4 Mg Cap.Er) 0.4 mg PO BEDTIME [facility] Thiamine HCl (Thiamine 100 Mg Tab) 100 mg PO DAILY [facility] Last Admin: 03/21/21 08:48 Dose: 100 mg Documented by: Discontinued Medications Enoxaparin Sodium (Enoxaparin 80 Mg/0.8 Ml Syringe) 80 mg SUBCUT Q12H [facility] Last Admin: 03/20/21 09:00 Dose: 80 mg Documented by: Vancomycin HCl 1.25 gm/ Sodium (Chloride) 250 mls @ 166.667 mls/hr IV Q12H [facility] Last Admin: 03/21/21 09:41 Dose: 166.667 mls/hr Documented by: Methylprednisolone Sodium Succinate (Methylprednisolone Sodium Succinate 40 Mg/1 Ml Sdv) 40 mg IVPUSH Q8H [facility] Last Admin: 03/20/21 03:35 Dose: 40 mg Documented by: Vancomycin HCl (Vancomycin 1 Gm Sdv) 1 gm IV .PHARMACY TO DOSE DELMI Stop: 03/20/21 08:00 - Exam Quality Assessment: Supplemental Oxygen, Urine Catheter, DVT Prophylaxis General: Alert, Oriented, Cooperative, Moderate Distress Lungs: Decreased Breath Sounds, Crackles. No: Rales, Rhonchi, Wheezing Cardiovascular: Regular Rate, Regular Rhythm, No Murmurs GI/Abdominal Exam: Soft, Non-Tender, No Organomegaly, No Distention Extremities: Non-Tender, No Pedal Edema - Patient Data Lab Results Last 24 hrs: Laboratory Results - last 24 hr 03/20/21 03/20/21 03/21/21 Range/Units 16:50 16:54 05:40 WBC 11.0 (4.5-11.0) K/uL RBC 2.97 L (4.30-5.90) M/uL Hgb 7.9 L 8.4 L (12.0-15.0) g/dL Hct 27.3 L (40.0-54.0) % MCV 92 (80-98) fL MCH 28 (27-31) pg MCHC 31 L (32-36) % Plt Count 309 (150-400) K/uL Add Manual Diff Yes Neutrophils % (Manual) 86 H (36-66) % Lymphocytes % (Manual) 12 L (24-44) % Monocytes % (Manual) 2 (2-6) % Sodium (140-148) mmol/L Potassium (3.6-5.2) mmol/L Chloride (100-108) mmol/L Carbon Dioxide (21-32) mmol/L Anion Gap (5.0-14.0) mmol/L BUN (7-18) mg/dL Creatinine (0.8-1.3) mg/dL Est Cr Clr Drug Dosing mL/min Estimated GFR (MDRD) (>60) Glucose (74-106) mg/dL Calcium (8.5-10.1) mg/dL Total Bilirubin (0.2-1.0) mg/dL AST (15-37) U/L ALT (12-78) U/L Alkaline Phosphatase (46-116) U/L Total Protein (6.4-8.2) g/dL Albumin (3.4-5.0) g/dL Globulin (2.3-3.5) g/dL Albumin/Globulin Ratio (1.2-2.2) Vancomycin Trough (10.0-20.0) ug/mL Blood Type A NEGATIVE Gel Antibody Screen Negative Crossmatch See Detail 03/21/21 03/21/21 Range/Units 05:40 08:25 WBC (4.5-11.0) K/uL RBC (4.30-5.90) M/uL Hgb (12.0-15.0) g/dL Hct (40.0-54.0) % MCV (80-98) fL MCH (27-31) pg MCHC (32-36) % Plt Count (150-400) K/uL Add Manual Diff Neutrophils % (Manual) (36-66) % Lymphocytes % (Manual) (24-44) % Monocytes % (Manual) (2-6) % Sodium 139 L (140-148) mmol/L Potassium 5.1 (3.6-5.2) mmol/L Chloride 103 (100-108) mmol/L Carbon Dioxide 33 H (21-32) mmol/L Anion Gap 8.1 (5.0-14.0) mmol/L BUN 20 H (7-18) mg/dL Creatinine 0.7 L (0.8-1.3) mg/dL Est Cr Clr Drug Dosing 94.15 mL/min Estimated GFR (MDRD) > 60 (>60) Glucose 124 H (74-106) mg/dL Calcium 8.4 L (8.5-10.1) mg/dL Total Bilirubin 0.2 (0.2-1.0) mg/dL AST 17 (15-37) U/L ALT 27 (12-78) U/L Alkaline Phosphatase 74 (46-116) U/L Total Protein 5.6 L (6.4-8.2) g/dL Albumin 1.7 L (3.4-5.0) g/dL Globulin 3.9 H (2.3-3.5) g/dL Albumin/Globulin Ratio 0.4 L (1.2-2.2) Vancomycin Trough 12.7 (10.0-20.0) ug/mL Blood Type Gel Antibody Screen Crossmatch Result Diagrams: 03/21/21 05:40 03/21/21 05:40 Sepsis Event Note - Evaluation Sepsis Screening Result: No Definite Risk - Focused Exam Vital Signs: Vital Signs Temp Pulse Pulse Resp BP BP Pulse Ox 03/21/21 15:01 98.4 F 85 22 H 158/48 H 92 L 03/21/21 10:32 98 F 82 20 155/50 H 95 03/21/21 08:49 94 131/54 L 03/21/21 08:48 131/54 L 03/21/21 07:08 97.7 F 70 20 155/60 H 93 L 03/21/21 04:08 97.7 F 77 18 123/53 L 98 - Problem List Review Problem List Initiated/Reviewed/Updated: Yes - My Orders Last 24 Hours: My Active Orders 03/20/21 16:54 PATIENT RETYPE [BBK] Stat RED BLOOD CELLS LP [BBK] Stat TYPE AND SCREEN [BBK] Stat 03/20/21 21:00 Mometasone Furoate 200mcg [Asmanex HFA 200mcg] 0 gm INH BIDRT 03/21/21 17:00 HGB [HEMOGLOBIN] [HEME] Stat 03/21/21 21:00 Tamsulosin [Flomax] 0.4 mg PO BEDTIME Vancomycin 1.5 gm Sodium Chloride 0.9% [Normal Saline] 250 ml IV Q12H 03/22/21 05:00 CBC WITH AUTO DIFF [HEME] Timed COMPREHENSIVE METABOLIC PN,CMP [CHEM] Timed 03/23/21 08:30 VANCOMYCIN TROUGH [CHEM] Routine - Plan Plan:: ASSESSMENT AND PLAN ACUTE ON SUBACUTE HYPOXIC RESPIRATORY FAILURE-secondary to recent Covid pneumonia, bilateral pulmonary emboli, and probable acute bacterial pneumonia. CT scan obtained in [place] showed no evidence of new pulmonary emboli. Continues to require relatively high level of supplemental oxygen. -Continue supplemental oxygen -Continuous pulse oximetry -Solu-Medrol 40 mg IV every 8 hours BACTERIAL PNEUMONIA-most likely cause of significant worsening of shortness of breath and hypoxia. -Blood and bacterial cultures obtained in [place] and are pending -Continue current antibiotic therapy with vancomycin and meropenem PROBABLE GI BLEED-significant drop in hemoglobin noted associated with symptoms of weakness and lightheadedness. Hemoglobin has been stable following transfusion of 2 units of red blood cells with no further evidence of active bleeding. -Serial hemoglobin levels -Protonix 40 mg IV every 12 hours -Hold on endoscopy until respiratory status has stabilized ACUTE BLOOD LOSS ANEMIA-hemoglobin has dropped from admission -Management as above BILATERAL PULMONARY EMBOLI-associated with recent COVID-19 infection and pneum onia -Hold Lovenox because of possible active bleeding URINARY RETENTION-identified while he was in [place] and a urinary catheter was placed at that time -Start Flomax 0.4 mg p.o. daily -Attempt to remove urinary catheter in a few days MAINTENANCE ISSUES -DVT prophylaxis; Lovenox as above -GI prophylaxis; Protonix as above -Aquino catheter; currently in place because of urinary retention -Nutrition; regular diet -Nicotine dependence; not required CODE STATUS-full code ADMISSION STATUS-patient will be admitted to inpatient status, expect at least a 2 night hospital stay for evaluation and management of problems as outlined above. At the time of this admission I do not reasonably expected evaluation and management of this problem will require more than a 96 hour hospital stay. DISPOSITION-anticipate discharge to home after the hospital stay. PRIMARY CARE PROVIDER-patient is from out of the community and receives his health care in [facility]
[2021-03-21] MEDS: Tamsulosin 0.4 MG Cap.ER PO SCH (20:27)
[2021-03-21] MEDS: Cyproheptadine 4 MG Tab PO SCH (20:27)
[2021-03-21] MEDS: Mirtazapine 15 MG Tab PO SCH (20:27)
[2021-03-21] MEDS: atorvaSTATin 20 MG Tab PO SCH (20:27)
[2021-03-22] MEDS: Meropenem 1 GM in Sodium Chloride 0.9% 100 ML IV SCH ×3 (03:33→20:17)
[2021-03-22] MEDS: methylPREDNISolone Sodium Succinate 40 MG/1 ML SDV IVPUSH SCH ×3 (03:33→20:15)
[2021-03-22] MEDS: Tiotropium BR/Olodaterol HCL 4 GM Inhalation Spray 2.5mcg/1 dose; 10 doses INH SCH (07:18)
[2021-03-22] MEDS: Mometasone Furoate HFA 200 mcg/Puff 13 GM Inhaler INH SCH ×2 (07:18→21:09)
[2021-03-22] MEDS: Pantoprazole 40 MG Vial IV SCH ×2 (08:22→19:38)
[2021-03-22] MEDS: Docusate Sodium 100 MG Cap PO SCH (08:27)
[2021-03-22] MEDS: Losartan 50 MG Tab PO SCH (08:36)
[2021-03-22] MEDS: DULoxetine 30 MG Cap PO SCH ×2 (08:36→21:09)
[2021-03-22] MEDS: Ferrous Sulfate 325 MG Tab PO SCH ×2 (08:37→21:10)
[2021-03-22] MEDS: Gabapentin 400 MG Cap PO SCH ×2 (08:37→21:11)
[2021-03-22] MEDS: Metoprolol Succinate 50 MG Tab.ER PO SCH (08:38)
[2021-03-22] MEDS: Oxybutynin 5 MG Tab PO SCH (08:38)
[2021-03-22] MEDS: Thiamine 100 MG Tab PO SCH (08:40)
--- NOTE | 2021-03-22 08:58 | PN ---
DATE OF SERVICE: 03/22/2021 SUBJECTIVE: Cristhian remains to be in some respiratory distress due to COVID. Hemoglobin this morning is 9.6, up from 8.8. REVIEW OF SYSTEMS: Per nursing staff, he is stable. OBJECTIVE: Deferred. ASSESSMENT: 1. Anemia, etiology unknown. 2. Acute on subacute hypoxic respiratory failure. 3. Bilateral pneumonia. 4. Probable gastrointestinal bleed. 5. Bilateral pulmonary emboli. PLAN: 1. Upper endoscopy on hold until patient can tolerate IV sedation. 2. We will evaluate p.r.n. or in a.m. Candice Xiao PA-C /[id number]
[2021-03-22] MEDS: Enoxaparin 80 MG/0.8 ML Syringe SUBCUT SCH ×2 (10:22→21:18)
--- NOTE | 2021-03-22 17:45 | PCM.PN ---
- General Info Date of Service: 03/22/21 Subjective Update: Mr. Reza has shown evidence of improvement since yesterday with decreased supplemental oxygen requirements. Subjectively he feels stronger, less short of breath, and quicker recovery with activity. Hemoglobin has remained stable off of enoxaparin. Functional Status: Reports: Tolerating Diet, Urinating - Review of Systems General: Reports: Weakness, Fatigue. Denies: Fever, Chills Pulmonary: Reports: Shortness of Breath. Denies: Pleuritic Chest Pain, Cough, Sputum, Hemoptysis, Wheezing Cardiovascular: Reports: Dyspnea on Exertion. Denies: Chest Pain, Palpitations, Orthopnea, PND, Edema, Lightheadedness Gastrointestinal: Reports: No Symptoms Genitourinary: Reports: No Symptoms - Patient Data Vitals - Most Recent: Last Vital Signs Temp 96.8 F L 03/22/21 15:29 Pulse 86 03/22/21 15:29 Resp 20 03/22/21 15:29 BP 159/98 H 03/22/21 15:29 Pulse Ox 88 L 03/22/21 15:29 Weight - Most Recent: 192 lb 6.4 oz I&O - Last 24 Hours: Intake & Output 03/22/21 03/22/21 03/22/21 06:59 14:59 22:59 Intake Total 800 2030 700 Output Total 1950 1450 500 Balance -1150 580 200 Lab Results Last 24 Hours: Laboratory Results - last 24 hr 03/22/21 03/22/21 Range/Units 05:15 05:15 WBC 11.8 H (4.5-11.0) K/uL RBC 3.34 L (4.30-5.90) M/uL Hgb 9.6 L (12.0-15.0) g/dL Hct 30.4 L (40.0-54.0) % MCV 91 (80-98) fL MCH 29 (27-31) pg MCHC 32 (32-36) % Plt Count 373 (150-400) K/uL Neut % (Auto) 87.3 H (36-66) % Lymph % (Auto) 8.6 L (24-44) % Osborne % (Auto) 3.6 (2-6) % Eos % (Auto) 0.3 L (2-4) % Baso % (Auto) 0.2 (0-1) % Sodium 139 L (140-148) mmol/L Potassium 4.6 (3.6-5.2) mmol/L Chloride 99 L (100-108) mmol/L Carbon Dioxide 34 H (21-32) mmol/L Anion Gap 10.6 (5.0-14.0) mmol/L BUN 22 H (7-18) mg/dL Creatinine 0.6 L (0.8-1.3) mg/dL Est Cr Clr Drug Dosing 109.84 mL/min Estimated GFR (MDRD) > 60 (>60) Glucose 134 H (74-106) mg/dL Calcium 8.9 (8.5-10.1) mg/dL Total Bilirubin 0.2 (0.2-1.0) mg/dL AST 19 (15-37) U/L ALT 32 (12-78) U/L Alkaline Phosphatase 86 (46-116) U/L Total Protein 6.1 L (6.4-8.2) g/dL Albumin 1.9 L (3.4-5.0) g/dL Globulin 4.2 H (2.3-3.5) g/dL Albumin/Globulin Ratio 0.5 L (1.2-2.2) Med Orders - Current: Current Medications Acetaminophen (Acetaminophen 325 Mg Tab) 650 mg PO Q4H PRN PRN Reason: Pain (Mild 1-3)/fever Atorvastatin Calcium (Atorvastatin 20 Mg Tab) 40 mg PO BEDTIME [facility] Last Admin: 03/21/21 20:27 Dose: 40 mg Documented by: Cyproheptadine HCl (Cyproheptadine 4 Mg Tab) 4 mg PO BEDTIME [facility] Last Admin: 03/21/21 20:27 Dose: 4 mg Documented by: Docusate Sodium (Docusate Sodium 100 Mg Cap) 100 mg PO DAILY [facility] Last Admin: 03/22/21 08:27 Dose: Not Given Documented by: Duloxetine HCl (Duloxetine 30 Mg Cap) 30 mg PO BID [facility] Last Admin: 03/22/21 08:36 Dose: 30 mg Documented by: Enoxaparin Sodium (Enoxaparin 80 Mg/0.8 Ml Syringe) 80 mg SUBCUT Q12H [facility] Last Admin: 03/22/21 10:22 Dose: 80 mg Documented by: Ferrous Sulfate (Ferrous Sulfate 325 Mg Tab) 325 mg PO BID [facility] Last Admin: 12/09/21 08:37 Dose: 325 mg Documented by: Gabapentin (Gabapentin 400 Mg Cap) 1,200 mg PO BID [facility] Last Admin: 03/22/21 08:37 Dose: 1,200 mg Documented by: Meropenem 1 gm/ Sodium (Chloride) 100 mls @ 200 mls/hr IV Q8H [facility] Last Admin: 03/22/21 11:54 Dose: 200 mls/hr Documented by: Vancomycin HCl 1.5 gm/ Sodium (Chloride) 250 mls @ 166.667 mls/hr IV Q12H [facility] Last Admin: 03/22/21 09:28 Dose: 166.667 mls/hr Documented by: Losartan Potassium (Losartan 50 Mg Tab) 50 mg PO DAILY [facility] Last Admin: 03/22/21 08:36 Dose: 50 mg Documented by: Methylprednisolone Sodium Succinate (Methylprednisolone Sodium Succinate 40 Mg/1 Ml Sdv) 40 mg IVPUSH Q8H [facility] Last Admin: 03/22/21 11:30 Dose: 40 mg Documented by: Metoprolol Succinate (Metoprolol Succinate 50 Mg Tab.Er) 50 mg PO QAM [facility] Last Admin: 03/22/21 08:38 Dose: 50 mg Documented by: Mirtazapine (Mirtazapine 15 Mg Tab) 30 mg PO BEDTIME [facility] Last Admin: 03/21/21 20:27 Dose: 30 mg Documented by: Mometasone Furoate (Mometasone Furoate Hfa 200 Mcg/Puff 13 Gm Inhaler) 0 gm INH BIDRT [facility] Last Admin: 03/22/21 07:18 Dose: 2 puff Documented by: Ondansetron HCl (Ondansetron 4 Mg/2 Ml Sdv) 4 mg IV Q4H PRN PRN Reason: Nausea/Vomiting Oxybutynin Chloride (Oxybutynin 5 Mg Tab) 5 mg PO DAILY [facility] Last Admin: 03/22/21 08:38 Dose: 5 mg Documented by: Pantoprazole Sodium (Pantoprazole 40 Mg Vial) 40 mg IV Q12H [facility] Last Admin: 03/22/21 08:22 Dose: 40 mg Documented by: Polyethylene Glycol (Polyethylene Glycol 3350 Powder 17 Gm Packet) 17 gm PO DAILY PRN PRN Reason: Constipation Sodium Chloride (Sodium Chloride 0.9% 10 Ml Syringe) 10 ml FLUSH ASDIRECTED PRN PRN Reason: Keep Vein Open Tamsulosin HCl (Tamsulosin 0.4 Mg Cap.Er) 0.4 mg PO BEDTIME [facility] Last Admin: 03/21/21 20:27 Dose: 0.4 mg Documented by: Thiamine HCl (Thiamine 100 Mg Tab) 100 mg PO DAILY [facility] Last Admin: 03/22/21 08:40 Dose: 100 mg Documented by: Discontinued Medications Enoxaparin Sodium (Enoxaparin 80 Mg/0.8 Ml Syringe) 80 mg SUBCUT Q12H [facility] Last Admin: 03/20/21 09:00 Dose: 80 mg Documented by: Vancomycin HCl 1.25 gm/ Sodium (Chloride) 250 mls @ 166.667 mls/hr IV Q12H [facility] Last Admin: 03/21/21 09:41 Dose: 166.667 mls/hr Documented by: Methylprednisolone Sodium Succinate (Methylprednisolone Sodium Succinate 40 Mg/1 Ml Sdv) 40 mg IVPUSH Q8H [facility] Last Admin: 03/20/21 03:35 Dose: 40 mg Documented by: Vancomycin HCl (Vancomycin 1 Gm Sdv) 1 gm IV .PHARMACY TO DOSE DELMI Stop: 03/20/21 08:00 - Exam Quality Assessment: Supplemental Oxygen, DVT Prophylaxis General: Alert, Oriented, Cooperative, Moderate Distress Lungs: Decreased Breath Sounds, Crackles. No: Rales, Rhonchi, Wheezing Cardiovascular: Regular Rate, Regular Rhythm, No Murmurs GI/Abdominal Exam: Soft, Non-Tender, No Organomegaly, No Distention Extremities: Non-Tender, No Pedal Edema - Patient Data Lab Results Last 24 hrs: Laboratory Results - last 24 hr 03/22/21 03/22/21 Range/Units 05:15 05:15 WBC 11.8 H (4.5-11.0) K/uL RBC 3.34 L (4.30-5.90) M/uL Hgb 9.6 L (12.0-15.0) g/dL Hct 30.4 L (40.0-54.0) % MCV 91 (80-98) fL MCH 29 (27-31) pg MCHC 32 (32-36) % Plt Count 373 (150-400) K/uL Neut % (Auto) 87.3 H (36-66) % Lymph % (Auto) 8.6 L (24-44) % Osborne % (Auto) 3.6 (2-6) % Eos % (Auto) 0.3 L (2-4) % Baso % (Auto) 0.2 (0-1) % Sodium 139 L (140-148) mmol/L Potassium 4.6 (3.6-5.2) mmol/L Chloride 99 L (100-108) mmol/L Carbon Dioxide 34 H (21-32) mmol/L Anion Gap 10.6 (5.0-14.0) mmol/L BUN 22 H (7-18) mg/dL Creatinine 0.6 L (0.8-1.3) mg/dL Est Cr Clr Drug Dosing 109.84 mL/min Estimated GFR (MDRD) > 60 (>60) Glucose 134 H (74-106) mg/dL Calcium 8.9 (8.5-10.1) mg/dL Total Bilirubin 0.2 (0.2-1.0) mg/dL AST 19 (15-37) U/L ALT 32 (12-78) U/L Alkaline Phosphatase 86 (46-116) U/L Total Protein 6.1 L (6.4-8.2) g/dL Albumin 1.9 L (3.4-5.0) g/dL Globulin 4.2 H (2.3-3.5) g/dL Albumin/Globulin Ratio 0.5 L (1.2-2.2) Result Diagrams: 03/22/21 05:15 03/22/21 05:15 Sepsis Event Note - Evaluation Sepsis Screening Result: No Definite Risk - Focused Exam Vital Signs: Vital Signs Temp Pulse Pulse Resp BP BP Pulse Ox 03/22/21 15:29 96.8 F L 86 20 159/98 H 88 L 03/22/21 10:51 97.8 F 86 16 139/49 L 03/22/21 08:38 93 142/59 H 03/22/21 08:36 142/59 H 03/22/21 07:22 97.8 F 77 142/59 H 96 - Problem List Review Problem List Initiated/Reviewed/Updated: Yes - My Orders Last 24 Hours: My Active Orders 03/21/21 21:00 Tamsulosin [Flomax] 0.4 mg PO BEDTIME Vancomycin 1.5 gm Sodium Chloride 0.9% [Normal Saline] 250 ml IV Q12H 03/22/21 10:00 Enoxaparin [Lovenox] 80 mg SUBCUT Q12H 03/23/21 08:30 VANCOMYCIN TROUGH [CHEM] Routine - Plan Plan:: ASSESSMENT AND PLAN ACUTE ON SUBACUTE HYPOXIC RESPIRATORY FAILURE-secondary to recent Covid pneumonia, bilateral pulmonary emboli, and probable acute bacterial pneumonia. CT scan obtained in [place] showed no evidence of new pulmonary emboli. Continues to require relatively high level of supplemental oxygen, but improved over the last 24 hours -Continue supplemental oxygen -Continuous pulse oximetry -Solu-Medrol 40 mg IV every 8 hours BACTERIAL PNEUMONIA-most likely cause of significant worsening of shortness of breath and hypoxia. -Blood and bacterial cultures obtained in [place] and are pending -Continue current antibiotic therapy with vancomycin and meropenem PROBABLE GI BLEED-significant drop in hemoglobin noted associated with symptoms of weakness and lightheadedness. Hemoglobin has been stable following transfusion of 2 units of red blood cells with no further evidence of active bleeding. -Serial hemoglobin levels -Protonix 40 mg IV every 12 hours -Hold on endoscopy until respiratory status has stabilized ACUTE BLOOD LOSS ANEMIA-hemoglobin has dropped from admission -Management as above BILATERAL PULMONARY EMBOLI-associated with recent COVID-19 infection and pneumonia -Resume Lovenox 80 mg subcu every 12 hours URINARY RETENTION-identified while he was in [place] and a urinary catheter was placed at that time -Flomax 0.4 mg p.o. daily -Remove Aquino catheter today MAINTENANCE ISSUES -DVT prophylaxis; Lovenox as above -GI prophylaxis; Protonix as above -Aquino catheter; currently in place because of urinary retention -Nutrition; regular diet -Nicotine dependence; not required CODE STATUS-full code ADMISSION STATUS-patient will be admitted to inpatient status, expect at least a 2 night hospital stay for evaluation and management of problems as outlined above. At the time of this admission I do not reasonably expected evaluation and management of this problem will require more than a 96 hour hospital stay. DISPOSITION-anticipate discharge to home after the hospital stay. PRIMARY CARE PROVIDER-patient is from out of the community and receives his health care in [facility]
[2021-03-22] MEDS: Tamsulosin 0.4 MG Cap.ER PO SCH (21:10)
[2021-03-22] MEDS: Cyproheptadine 4 MG Tab PO SCH (21:10)
[2021-03-22] MEDS: Mirtazapine 15 MG Tab PO SCH (21:11)
[2021-03-22] MEDS: atorvaSTATin 20 MG Tab PO SCH (21:12)
[2021-03-23] MEDS: Meropenem 1 GM in Sodium Chloride 0.9% 100 ML IV SCH ×3 (04:02→20:16)
[2021-03-23] MEDS: methylPREDNISolone Sodium Succinate 40 MG/1 ML SDV IVPUSH SCH ×2 (04:02→13:11)
[2021-03-23] MEDS: Mometasone Furoate HFA 200 mcg/Puff 13 GM Inhaler INH SCH ×2 (07:15→20:16)
[2021-03-23] MEDS: Tiotropium BR/Olodaterol HCL 4 GM Inhalation Spray 2.5mcg/1 dose; 10 doses INH SCH (07:15)
--- NOTE | 2021-03-23 07:41 | PN ---
DATE OF SERVICE: 03/23/2021 SUBJECTIVE: Cristhian continues to be on the AIRVO. Vital signs otherwise have been stable. Labs this morning, hemoglobin is 8.4, the same as what it was on 03/22/2021 at 1600, down from 9.6, 24 hours ago. OBJECTIVE: Deferred. ASSESSMENT: 1. We will continue to wait until the patient is stable to schedule upper endoscopy when he can tolerate IV sedation. 2. We will evaluate p.r.n. or in a.m. Candice Xiao PA-C /[id number]
[2021-03-23] MEDS: DULoxetine 30 MG Cap PO SCH ×2 (09:07→20:19)
[2021-03-23] MEDS: Losartan 50 MG Tab PO SCH (09:08)
[2021-03-23] MEDS: Metoprolol Succinate 50 MG Tab.ER PO SCH (09:09)
[2021-03-23] MEDS: Ferrous Sulfate 325 MG Tab PO SCH ×2 (09:09→20:18)
[2021-03-23] MEDS: Thiamine 100 MG Tab PO SCH (09:09)
[2021-03-23] MEDS: Oxybutynin 5 MG Tab PO SCH (09:10)
[2021-03-23] MEDS: Gabapentin 400 MG Cap PO SCH ×2 (09:11→20:17)
[2021-03-23] MEDS: Docusate Sodium 100 MG Cap PO SCH (09:11)
[2021-03-23] MEDS: Pantoprazole 40 MG Vial IV SCH (09:20)
[2021-03-23] MEDS: Enoxaparin 80 MG/0.8 ML Syringe SUBCUT SCH ×2 (11:04→22:30)
[2021-03-23] MEDS ORDERED: Aloe Vera/Sodium Chloride Gel 14.1 GM Tube NAS PRN (12:21)
--- NOTE | 2021-03-23 13:55 | PCM.PN ---
- General Info Date of Service: 03/23/21 Subjective Update: Mr. Reza has shown further improvement in oxygenation and will be converted to high flow nasal cannula. He feels less short of breath and his noted definite improvement in his overall strength. Hemoglobin has been stable after restarting enoxaparin yesterday. Functional Status: Reports: Tolerating Diet, Urinating. Denies: Ambulating - Review of Systems General: Reports: Weakness, Fatigue. Denies: Fever, Chills Pulmonary: Reports: Shortness of Breath. Denies: Pleuritic Chest Pain, Cough, Sputum, Hemoptysis, Wheezing Cardiovascular: Reports: Dyspnea on Exertion. Denies: Chest Pain, Palpitations, Orthopnea, PND, Edema, Lightheadedness Gastrointestinal: Reports: No Symptoms Genitourinary: Reports: No Symptoms - Patient Data Vitals - Most Recent: Last Vital Signs Temp 97.4 F 03/23/21 13:37 Pulse 70 03/23/21 11:37 Resp 17 03/23/21 13:37 BP 154/64 H 03/23/21 13:37 Pulse Ox 95 03/23/21 13:37 Weight - Most Recent: 194 lb I&O - Last 24 Hours: Intake & Output 03/22/21 03/23/21 03/23/21 22:59 06:59 14:59 Intake Total 8058 273 4515 Output Total 850 1400 1960 Balance 920 -1300 -350 Lab Results Last 24 Hours: Laboratory Results - last 24 hr 03/22/21 03/23/21 03/23/21 Range/Units 17:53 04:46 04:46 WBC 12.7 H (4.5-11.0) K/uL RBC 3.02 L (4.30-5.90) M/uL Hgb 8.4 L 8.4 L (12.0-15.0) g/dL Hct 27.5 L (40.0-54.0) % MCV 91 (80-98) fL MCH 28 (27-31) pg MCHC 31 L (32-36) % Plt Count 370 (150-400) K/uL Neut % (Auto) 84.4 H (36-66) % Lymph % (Auto) 10.1 L (24-44) % [place] % (Auto) 5.0 (2-6) % Eos % (Auto) 0.4 L (2-4) % Baso % (Auto) 0.1 (0-1) % Sodium 138 L (140-148) mmol/L Potassium 4.7 (3.6-5.2) mmol/L Chloride 100 (100-108) mmol/L Carbon Dioxide 34 H (21-32) mmol/L Anion Gap 8.7 (5.0-14.0) mmol/L BUN 26 H (7-18) mg/dL Creatinine 0.8 (0.8-1.3) mg/dL Est Cr Clr Drug Dosing 82.38 mL/min Estimated GFR (MDRD) > 60 (>60) Glucose 152 H (74-106) mg/dL Calcium 8.8 (8.5-10.1) mg/dL Vancomycin Trough (10.0-20.0) ug/mL 03/23/21 Range/Units 08:30 WBC (4.5-11.0) K/uL RBC (4.30-5.90) M/uL Hgb (12.0-15.0) g/dL Hct (40.0-54.0) % MCV (80-98) fL MCH (27-31) pg MCHC (32-36) % Plt Count (150-400) K/uL Neut % (Auto) (36-66) % Lymph % (Auto) (24-44) % [place] % (Auto) (2-6) % Eos % (Auto) (2-4) % Baso % (Auto) (0-1) % Sodium (140-148) mmol/L Potassium (3.6-5.2) mmol/L Chloride (100-108) mmol/L Carbon Dioxide (21-32) mmol/L Anion Gap (5.0-14.0) mmol/L BUN (7-18) mg/dL Creatinine (0.8-1.3) mg/dL Est Cr Clr Drug Dosing mL/min Estimated GFR (MDRD) (>60) Glucose (74-106) mg/dL Calcium (8.5-10.1) mg/dL Vancomycin Trough 12.3 (10.0-20.0) ug/mL Med Orders - Current: Current Medications Acetaminophen (Acetaminophen 325 Mg Tab) 650 mg PO Q4H PRN PRN Reason: Pain (Mild 1-3)/fever Atorvastatin Calcium (Atorvastatin 20 Mg Tab) 40 mg PO BEDTIME [facility] Last Admin: 03/22/21 21:12 Dose: 40 mg Documented by: Cyproheptadine HCl (Cyproheptadine 4 Mg Tab) 4 mg PO BEDTIME [facility] Last Admin: 03/22/21 21:10 Dose: 4 mg Documented by: Docusate Sodium (Docusate Sodium 100 Mg Cap) 100 mg PO DAILY [facility] Last Admin: 03/23/21 09:11 Dose: Not Given Documented by: Duloxetine HCl (Duloxetine 30 Mg Cap) 30 mg PO BID [facility] Last Admin: 03/23/21 09:07 Dose: 30 mg Documented by: Enoxaparin Sodium (Enoxaparin 80 Mg/0.8 Ml Syringe) 80 mg SUBCUT Q12H [facility] Last Admin: 03/23/21 11:04 Dose: 80 mg Documented by: Ferrous Sulfate (Ferrous Sulfate 325 Mg Tab) 325 mg PO BID [facility] Last Admin: 03/23/21 09:09 Dose: 325 mg Documented by: Gabapentin (Gabapentin 400 Mg Cap) 1,200 mg PO BID [facility] Last Admin: 03/23/21 09:11 Dose: 1,200 mg Documented by: Meropenem 1 gm/ Sodium (Chloride) 100 mls @ 200 mls/hr IV Q8H [facility] Last Admin: 03/23/21 13:12 Dose: 200 mls/hr Documented by: Vancomycin HCl 1.75 gm/ Sodium (Chloride) 250 mls @ 166.667 mls/hr IV Q12H [facility] Last Admin: 03/23/21 11:02 Dose: 166.667 mls/hr Documented by: Losartan Potassium (Losartan 50 Mg Tab) 50 mg PO DAILY [facility] Last Admin: 03/23/21 09:08 Dose: 50 mg Documented by: Methylprednisolone Sodium Succinate (Methylprednisolone Sodium Succinate 40 Mg/1 Ml Sdv) 40 mg IVPUSH Q8H [facility] Last Admin: 03/23/21 13:11 Dose: 40 mg Documented by: Metoprolol Succinate (Metoprolol Succinate 50 Mg Tab.Er) 50 mg PO QAM [facility] Last Admin: 03/23/21 09:09 Dose: 50 mg Documented by: Mirtazapine (Mirtazapine 15 Mg Tab) 30 mg PO BEDTIME [facility] Last Admin: 03/22/21 21:11 Dose: 30 mg Documented by: Mometasone Furoate (Mometasone Furoate Hfa 200 Mcg/Puff 13 Gm Inhaler) 0 gm INH BIDRT [facility] Last Admin: 03/23/21 07:15 Dose: 2 puff Documented by: Ondansetron HCl (Ondansetron 4 Mg/2 Ml Sdv) 4 mg IV Q4H PRN PRN Reason: Nausea/Vomiting Oxybutynin Chloride (Oxybutynin 5 Mg Tab) 5 mg PO DAILY [facility] Last Admin: 03/23/21 09:10 Dose: 5 mg Documented by: Pantoprazole Sodium (Pantoprazole 40 Mg Vial) 40 mg IV Q12H [facility] Last Admin: 03/23/21 09:20 Dose: 40 mg Documented by: Polyethylene Glycol (Polyethylene Glycol 3350 Powder 17 Gm Packet) 17 gm PO DAILY PRN PRN Reason: Constipation Sodium Chloride (Sodium Chloride 0.9% 10 Ml Syringe) 10 ml FLUSH ASDIRECTED PRN PRN Reason: Keep Vein Open Sodium Chloride (Aloe Vera/Sodium Chloride Gel 14.1 Gm Tube) 0 gm TREMAINE Q2H PRN PRN Reason: Other Tamsulosin HCl (Tamsulosin 0.4 Mg Cap.Er) 0.4 mg PO BEDTIME [facility] Last Admin: 03/22/21 21:10 Dose: 0.4 mg Documented by: Thiamine HCl (Thiamine 100 Mg Tab) 100 mg PO DAILY [facility] Last Admin: 03/23/21 09:09 Dose: 100 mg Documented by: Discontinued Medications Enoxaparin Sodium (Enoxaparin 80 Mg/0.8 Ml Syringe) 80 mg SUBCUT Q12H [facility] Last Admin: 03/20/21 09:00 Dose: 80 mg Documented by: Vancomycin HCl 1.25 gm/ Sodium (Chloride) 250 mls @ 166.667 mls/hr IV Q12H [facility] Last Admin: 03/21/21 09:41 Dose: 166.667 mls/hr Documented by: Vancomycin HCl 1.5 gm/ Sodium (Chloride) 250 mls @ 166.667 mls/hr IV Q12H [facility] Last Admin: 03/22/21 21:08 Dose: 166.667 mls/hr Documented by: Methylprednisolone Sodium Succinate (Methylprednisolone Sodium Succinate 40 Mg/1 Ml Sdv) 40 mg IVPUSH Q8H [facility] Last Admin: 03/20/21 03:35 Dose: 40 mg Documented by: Vancomycin HCl (Vancomycin 1 Gm Sdv) 1 gm IV .PHARMACY TO DOSE DELMI Stop: 03/20/21 08:00 - Exam Quality Assessment: Supplemental Oxygen, DVT Prophylaxis General: Alert, Oriented, Cooperative, Mild Distress Lungs: Decreased Breath Sounds, Crackles. No: Rales, Rhonchi, Wheezing Cardiovascular: Regular Rate, Regular Rhythm, No Murmurs GI/Abdominal Exam: Soft, Non-Tender, No Organomegaly, No Distention Extremities: Non-Tender, No Pedal Edema - Patient Data Lab Results Last 24 hrs: Laboratory Results - last 24 hr 03/22/21 03/23/21 03/23/21 Range/Units 17:53 04:46 04:46 WBC 12.7 H (4.5-11.0) K/uL RBC 3.02 L (4.30-5.90) M/uL Hgb 8.4 L 8.4 L (12.0-15.0) g/dL Hct 27.5 L (40.0-54.0) % MCV 91 (80-98) fL MCH 28 (27-31) pg MCHC 31 L (32-36) % Plt Count 370 (150-400) K/uL Neut % (Auto) 84.4 H (36-66) % Lymph % (Auto) 10.1 L (24-44) % [place] % (Auto) 5.0 (2-6) % Eos % (Auto) 0.4 L (2-4) % Baso % (Auto) 0.1 (0-1) % Sodium 138 L (140-148) mmol/L Potassium 4.7 (3.6-5.2) mmol/L Chloride 100 (100-108) mmol/L Carbon Dioxide 34 H (21-32) mmol/L Anion Gap 8.7 (5.0-14.0) mmol/L BUN 26 H (7-18) mg/dL Creatinine 0.8 (0.8-1.3) mg/dL Est Cr Clr Drug Dosing 82.38 mL/min Estimated GFR (MDRD) > 60 (>60) Glucose 152 H (74-106) mg/dL Calcium 8.8 (8.5-10.1) mg/dL Vancomycin Trough (10.0-20.0) ug/mL 03/23/21 Range/Units 08:30 WBC (4.5-11.0) K/uL RBC (4.30-5.90) M/uL Hgb (12.0-15.0) g/dL Hct (40.0-54.0) % MCV (80-98) fL MCH (27-31) pg MCHC (32-36) % Plt Count (150-400) K/uL Neut % (Auto) (36-66) % Lymph % (Auto) (24-44) % [place] % (Auto) (2-6) % Eos % (Auto) (2-4) % Baso % (Auto) (0-1) % Sodium (140-148) mmol/L Potassium (3.6-5.2) mmol/L Chloride (100-108) mmol/L Carbon Dioxide (21-32) mmol/L Anion Gap (5.0-14.0) mmol/L BUN (7-18) mg/dL Creatinine (0.8-1.3) mg/dL Est Cr Clr Drug Dosing mL/min Estimated GFR (MDRD) (>60) Glucose (74-106) mg/dL Calcium (8.5-10.1) mg/dL Vancomycin Trough 12.3 (10.0-20.0) ug/mL Result Diagrams: 03/23/21 04:46 03/23/21 04:46 Sepsis Event Note - Evaluation Sepsis Screening Result: No Definite Risk - Focused Exam Vital Signs: Vital Signs Temp Pulse Pulse Resp BP BP Pulse Ox 03/23/21 13:37 97.4 F 17 154/64 H 95 03/23/21 12:35 98 03/23/21 11:37 97.9 F 70 20 124/48 L 100 03/23/21 09:09 74 144/69 H 03/23/21 09:08 144/69 H 03/23/21 08:00 03/23/21 07:26 97.4 F 74 144/69 H 98 03/23/21 03:00 96.7 F L 75 16 122/43 L 95 Pulse Ox 03/23/21 13:37 03/23/21 12:35 03/23/21 11:37 03/23/21 09:09 03/23/21 09:08 03/23/21 08:00 98 03/23/21 07:26 03/23/21 03:00 - Problem List Review Problem List Initiated/Reviewed/Updated: Yes - My Orders Last 24 Hours: My Active Orders 03/23/21 11:00 Vancomycin 1.75 gm Sodium Chloride 0.9% [Normal Saline] 250 ml IV Q12H 03/23/21 12:21 Aloe Vera/Sodium Chloride [[place] Saline Nasal Gel] See Dose Instructions TREMAINE Q2H PRN 03/23/21 17:00 HGB [HEMOGLOBIN] [HEME] Stat 03/24/21 05:00 BASIC METABOLIC PANEL,BMP [CHEM] Timed CBC WITH AUTO DIFF [HEME] Timed - Plan Plan:: ASSESSMENT AND PLAN ACUTE ON SUBACUTE HYPOXIC RESPIRATORY FAILURE-secondary to recent Covid pneumonia, bilateral pulmonary emboli, and probable acute bacterial pneumonia. CT scan obtained in [place] showed no evidence of new pulmonary emboli. Oxygenation has improved and he will be placed on high flow nasal cannula. -Continue supplemental oxygen -Continuous pulse oximetry -Solu-Medrol 40 mg IV every 24 hours BACTERIAL PNEUMONIA-most likely cause of significant worsening of shortness of breath and hypoxia. -Blood and bacterial cultures obtained in [place] and are pending -Continue current antibiotic therapy with vancomycin and meropenem PROBABLE GI BLEED-significant drop in hemoglobin noted associated with symptoms of weakness and lightheadedness. Hemoglobin has been stable following trans fusion of 2 units of red blood cells with no further evidence of active bleeding. -Serial hemoglobin levels -Protonix 40 mg po every 12 hours -Hold on endoscopy until respiratory status has stabilized ACUTE BLOOD LOSS ANEMIA-hemoglobin has remained fairly stable over the past few days -Management as above BILATERAL PULMONARY EMBOLI-associated with recent COVID-19 infection and pneumonia -Lovenox 80 mg subcu every 12 hours URINARY RETENTION-Aquino catheter removed yesterday, he continues to experience some intermittent difficulty with urination -Flomax 0.4 mg p.o. daily MAINTENANCE ISSUES -DVT prophylaxis; Lovenox as above -GI prophylaxis; Protonix as above -Aquino catheter; removed -Nutrition; regular diet -Nicotine dependence; not required CODE STATUS-full code ADMISSION STATUS-patient will be admitted to inpatient status, expect at least a 2 night hospital stay for evaluation and management of problems as outlined above. At the time of this admission I do not reasonably expected evaluation and management of this problem will require more than a 96 hour hospital stay. DISPOSITION-anticipate discharge to home after the hospital stay. PRIMARY CARE PROVIDER-patient is from out of the community and receives his health care in [facility]
[2021-03-23] MEDS: atorvaSTATin 20 MG Tab PO SCH (20:17)
[2021-03-23] MEDS: Cyproheptadine 4 MG Tab PO SCH (20:17)
[2021-03-23] MEDS: Tamsulosin 0.4 MG Cap.ER PO SCH (20:18)
[2021-03-23] MEDS: Pantoprazole 40 MG Tab.CR PO SCH (20:18)
[2021-03-23] MEDS: Mirtazapine 15 MG Tab PO SCH (20:18)
[2021-03-24] MEDS: Meropenem 1 GM in Sodium Chloride 0.9% 100 ML IV SCH ×3 (04:12→20:21)
[2021-03-24] MEDS: Tiotropium BR/Olodaterol HCL 4 GM Inhalation Spray 2.5mcg/1 dose; 10 doses INH SCH (07:45)
[2021-03-24] MEDS: Mometasone Furoate HFA 200 mcg/Puff 13 GM Inhaler INH SCH ×2 (07:45→20:21)
[2021-03-24] MEDS: Pantoprazole 40 MG Tab.CR PO SCH ×2 (08:16→16:39)
[2021-03-24] MEDS: Docusate Sodium 100 MG Cap PO SCH (08:17)
[2021-03-24] MEDS: DULoxetine 30 MG Cap PO SCH ×2 (08:18→20:22)
[2021-03-24] MEDS: Thiamine 100 MG Tab PO SCH (08:18)
[2021-03-24] MEDS: Ferrous Sulfate 325 MG Tab PO SCH ×2 (08:19→20:21)
[2021-03-24] MEDS: Gabapentin 400 MG Cap PO SCH ×2 (08:19→20:21)
[2021-03-24] MEDS: Metoprolol Succinate 50 MG Tab.ER PO SCH (08:19)
[2021-03-24] MEDS: Oxybutynin 5 MG Tab PO SCH (08:19)
[2021-03-24] MEDS: Losartan 50 MG Tab PO SCH (08:26)
--- NOTE | 2021-03-24 08:43 | PN ---
DATE OF SERVICE: 03/24/2021 SUBJECTIVE: Cristhian is on 10 L of O2. He has been afebrile. Vital signs have been stable. Hemoglobin this morning is 9, hematocrit 29.4. REVIEW OF SYSTEMS: Per nursing report. OBJECTIVE: VITAL SIGNS: 97.8, 70, 16, blood pressure 125/36, O2 is 94% on 10 L. ASSESSMENT: COVID, gastrointestinal bleed. PLAN: 1. Continue to wait till patient is stable to schedule upper GI when he can tolerate IV sedation. 2. Evaluate p.r.n. or in the a.m. Candice Xiao PA-C /[id number]
[2021-03-24] MEDS ORDERED: methylPREDNISolone Sodium Succinate 40 MG/1 ML SDV IVPUSH SCH (09:00)
[2021-03-24] MEDS: Enoxaparin 80 MG/0.8 ML Syringe SUBCUT SCH ×2 (10:34→22:38)
--- NOTE | 2021-03-24 13:53 | PCM.PN ---
- General Info Date of Service: 03/24/21 Subjective Update: Mr. Reza has been stable since yesterday. He is tolerated switch from high flow humidified oxygen to high flow nasal cannula, currently on 8 L/min. No evidence of active bleeding, hemoglobin has remained stable. Functional Status: Reports: Tolerating Diet, Urinating - Review of Systems General: Reports: Weakness, Fatigue. Denies: Fever, Chills Pulmonary: Reports: Shortness of Breath. Denies: Pleuritic Chest Pain, Cough, Sputum, Hemoptysis, Wheezing Cardiovascular: Reports: Dyspnea on Exertion. Denies: Chest Pain, Palpitations, Orthopnea, PND, Edema, Lightheadedness Gastrointestinal: Reports: No Symptoms Genitourinary: Reports: No Symptoms - Patient Data Vitals - Most Recent: Last Vital Signs Temp 98.1 F 03/24/21 07:00 Pulse 69 03/24/21 12:48 Resp 16 03/24/21 12:48 BP 132/40 L 03/24/21 12:48 Pulse Ox 95 03/24/21 12:48 Weight - Most Recent: 194 lb I&O - Last 24 Hours: Intake & Output 03/23/21 03/24/21 03/24/21 22:59 06:59 14:59 Intake Total 501 286 3091 Output Total 1100 1400 800 Balance -320 -650 980 Lab Results Last 24 Hours: Laboratory Results - last 24 hr 03/20/21 03/23/21 03/24/21 Range/Units 16:54 17:08 06:00 WBC 11.6 H (4.5-11.0) K/uL RBC 3.21 L (4.30-5.90) M/uL Hgb 9.1 L 9.0 L (12.0-15.0) g/dL Hct 29.4 L (40.0-54.0) % MCV 92 (80-98) fL MCH 28 (27-31) pg MCHC 31 L (32-36) % Plt Count 425 H (150-400) K/uL Add Manual Diff Yes Neutrophils % (Manual) 73 H (36-66) % Band Neutrophils % 2 L (5-11) % Lymphocytes % (Manual) 18 L (24-44) % Monocytes % (Manual) 5 (2-6) % Eosinophils % (Manual) 1 L (2-4) % Basophils % (Manual) 1 (0-1) % Sodium (140-148) mmol/L Potassium (3.6-5.2) mmol/L Chloride (100-108) mmol/L Carbon Dioxide (21-32) mmol/L Anion Gap (5.0-14.0) mmol/L BUN (7-18) mg/dL Creatinine (0.8-1.3) mg/dL Est Cr Clr Drug Dosing mL/min Estimated GFR (MDRD) (>60) Glucose (74-106) mg/dL Calcium (8.5-10.1) mg/dL Crossmatch See Detail 03/24/21 Range/Units 06:00 WBC (4.5-11.0) K/uL RBC (4.30-5.90) M/uL Hgb (12.0-15.0) g/dL Hct (40.0-54.0) % MCV (80-98) fL MCH (27-31) pg MCHC (32-36) % Plt Count (150-400) K/uL Add Manual Diff Neutrophils % (Manual) (36-66) % Band Neutrophils % (5-11) % Lymphocytes % (Manual) (24-44) % Monocytes % (Manual) (2-6) % Eosinophils % (Manual) (2-4) % Basophils % (Manual) (0-1) % Sodium 139 L (140-148) mmol/L Potassium 4.4 (3.6-5.2) mmol/L Chloride 100 (100-108) mmol/L Carbon Dioxide 36 H (21-32) mmol/L Anion Gap 7.4 (5.0-14.0) mmol/L BUN 24 H (7-18) mg/dL Creatinine 0.7 L (0.8-1.3) mg/dL Est Cr Clr Drug Dosing 94.15 mL/min Estimated GFR (MDRD) > 60 (>60) Glucose 87 (74-106) mg/dL Calcium 9.0 (8.5-10.1) mg/dL Crossmatch Med Orders - Current: Current Medications Acetaminophen (Acetaminophen 325 Mg Tab) 650 mg PO Q4H PRN PRN Reason: Pain (Mild 1-3)/fever Atorvastatin Calcium (Atorvastatin 20 Mg Tab) 40 mg PO BEDTIME [facility]MI Last Admin: 03/23/21 20:17 Dose: 40 mg Documented by: Cyproheptadine HCl (Cyproheptadine 4 Mg Tab) 4 mg PO BEDTIME [facility] Last Admin: 03/23/21 20:17 Dose: 4 mg Documented by: Docusate Sodium (Docusate Sodium 100 Mg Cap) 100 mg PO DAILY [facility] Last Admin: 03/24/21 08:17 Dose: Not Given Documented by: Duloxetine HCl (Duloxetine 30 Mg Cap) 30 mg PO BID [facility] Last Admin: 03/24/21 08:18 Dose: 30 mg Documented by: Enoxaparin Sodium (Enoxaparin 80 Mg/0.8 Ml Syringe) 80 mg SUBCUT Q12H [facility] Last Admin: 03/24/21 10:34 Dose: 80 mg Documented by: Ferrous Sulfate (Ferrous Sulfate 325 Mg Tab) 325 mg PO BID [facility] Last Admin: 03/24/21 08:19 Dose: 325 mg Documented by: Gabapentin (Gabapentin 400 Mg Cap) 1,200 mg PO BID [facility] Last Admin: 03/24/21 08:19 Dose: 1,200 mg Documented by: Meropenem 1 gm/ Sodium (Chloride) 100 mls @ 200 mls/hr IV Q8H [facility] Stop: 03/25/21 08:00 Last Admin: 03/24/21 12:44 Dose: 200 mls/hr Documented by: Vancomycin HCl 1.75 gm/ Sodium (Chloride) 250 mls @ 166.667 mls/hr IV Q12H [facility] Stop: 03/25/21 08:00 Last Admin: 03/24/21 10:35 Dose: 166.667 mls/hr Documented by: Losartan Potassium (Losartan 50 Mg Tab) 50 mg PO DAILY [facility] Last Admin: 03/24/21 08:26 Dose: 50 mg Documented by: Metoprolol Succinate (Metoprolol Succinate 50 Mg Tab.Er) 50 mg PO QAM [facility] Last Admin: 03/24/21 08:19 Dose: 50 mg Documented by: Mirtazapine (Mirtazapine 15 Mg Tab) 30 mg PO BEDTIME [facility] Last Admin: 03/23/21 20:18 Dose: 30 mg Documented by: Mometasone Furoate (Mometasone Furoate Hfa 200 Mcg/Puff 13 Gm Inhaler) 0 gm INH BIDRT [facility] Last Admin: 03/24/21 07:45 Dose: 2 puff Documented by: Ondansetron HCl (Ondansetron 4 Mg/2 Ml Sdv) 4 mg IV Q4H PRN PRN Reason: Nausea/Vomiting Oxybutynin Chloride (Oxybutynin 5 Mg Tab) 5 mg PO DAILY [facility] Last Admin: 03/24/21 08:19 Dose: 5 mg Documented by: Pantoprazole Sodium (Pantoprazole 40 Mg Tab.Cr) 40 mg PO BIDAC [facility] Last Admin: 03/24/21 08:16 Dose: 40 mg Documented by: Polyethylene Glycol (Polyethylene Glycol 3350 Powder 17 Gm Packet) 17 gm PO DAILY PRN PRN Reason: Constipation Prednisone (Prednisone 20 Mg Tab) 20 mg PO WITHBREAKFAST [facility] Sodium Chloride (Sodium Chloride 0.9% 10 Ml Syringe) 10 ml FLUSH ASDIRECTED PRN PRN Reason: Keep Vein Open Sodium Chloride (Aloe Vera/Sodium Chloride Gel 14.1 Gm Tube) 0 gm TREMAINE Q2H PRN PRN Reason: Other Tamsulosin HCl (Tamsulosin 0.4 Mg Cap.Er) 0.4 mg PO BEDTIME [facility] Last Admin: 03/23/21 20:18 Dose: 0.4 mg Documented by: Thiamine HCl (Thiamine 100 Mg Tab) 100 mg PO DAILY [facility] Last Admin: 03/24/21 08:18 Dose: 100 mg Documented by: Discontinued Medications Enoxaparin Sodium (Enoxaparin 80 Mg/0.8 Ml Syringe) 80 mg SUBCUT Q12H [facility] Last Admin: 03/20/21 09:00 Dose: 80 mg Documented by: Vancomycin HCl 1.25 gm/ Sodium (Chloride) 250 mls @ 166.667 mls/hr IV Q12H [facility] Last Admin: 03/21/21 09:41 Dose: 166.667 mls/hr Documented by: Vancomycin HCl 1.5 gm/ Sodium (Chloride) 250 mls @ 166.667 mls/hr IV Q12H [facility] Last Admin: 03/22/21 21:08 Dose: 166.667 mls/hr Documented by: Methylprednisolone Sodium Succinate (Methylprednisolone Sodium Succinate 40 Mg/1 Ml Sdv) 40 mg IVPUSH Q8H [facility] Last Admin: 03/20/21 03:35 Dose: 40 mg Documented by: Methylprednisolone Sodium Succinate (Methylprednisolone Sodium Succinate 40 Mg/1 Ml Sdv) 40 mg IVPUSH Q8H [facility] Last Admin: 03/23/21 13:11 Dose: 40 mg Documented by: Methylprednisolone Sodium Succinate (Methylprednisolone Sodium Succinate 40 Mg/1 Ml Sdv) 40 mg IVPUSH Q24H [facility] Last Admin: 03/24/21 08:20 Dose: 40 mg Documented by: Pantoprazole Sodium (Pantoprazole 40 Mg Vial) 40 mg IV Q12H [facility] Last Admin: 03/23/21 09:20 Dose: 40 mg Documented by: Vancomycin HCl (Vancomycin 1 Gm Sdv) 1 gm IV .PHARMACY TO DOSE [facility] Stop: 03/20/21 08:00 - Exam Quality Assessment: Supplemental Oxygen, DVT Prophylaxis General: Alert, Oriented, Cooperative, Mild Distress Lungs: Clear to Auscultation, Normal Respiratory Effort, Decreased Breath Sounds Cardiovascular: Regular Rate, Regular Rhythm, No Murmurs GI/Abdominal Exam: Soft, Non-Tender, No Organomegaly, No Distention Extremities: Non-Tender, No Pedal Edema - Patient Data Lab Results Last 24 hrs: Laboratory Results - last 24 hr 03/20/21 03/23/21 03/24/21 Range/Units 16:54 17:08 06:00 WBC 11.6 H (4.5-11.0) K/uL RBC 3.21 L (4.30-5.90) M/uL Hgb 9.1 L 9.0 L (12.0-15.0) g/dL Hct 29.4 L (40.0-54.0) % MCV 92 (80-98) fL MCH 28 (27-31) pg MCHC 31 L (32-36) % Plt Count 425 H (150-400) K/uL Add Manual Diff Yes Neutrophils % (Manual) 73 H (36-66) % Band Neutrophils % 2 L (5-11) % Lymphocytes % (Manual) 18 L (24-44) % Monocytes % (Manual) 5 (2-6) % Eosinophils % (Manual) 1 L (2-4) % Basophils % (Manual) 1 (0-1) % Sodium (140-148) mmol/L Potassium (3.6-5.2) mmol/L Chloride (100-108) mmol/L Carbon Dioxide (21-32) mmol/L Anion Gap (5.0-14.0) mmol/L BUN (7-18) mg/dL Creatinine (0.8-1.3) mg/dL Est Cr Clr Drug Dosing mL/min Estimated GFR (MDRD) (>60) Glucose (74-106) mg/dL Calcium (8.5-10.1) mg/dL Crossmatch See Detail 03/24/21 Range/Units 06:00 WBC (4.5-11.0) K/uL RBC (4.30-5.90) M/uL Hgb (12.0-15.0) g/dL Hct (40.0-54.0) % MCV (80-98) fL MCH (27-31) pg MCHC (32-36) % Plt Count (150-400) K/uL Add Manual Diff Neutrophils % (Manual) (36-66) % Band Neutrophils % (5-11) % Lymphocytes % (Manual) (24-44) % Monocytes % (Manual) (2-6) % Eosinophils % (Manual) (2-4) % Basophils % (Manual) (0-1) % Sodium 139 L (140-148) mmol/L Potassium 4.4 (3.6-5.2) mmol/L Chloride 100 (100-108) mmol/L Carbon Dioxide 36 H (21-32) mmol/L Anion Gap 7.4 (5.0-14.0) mmol/L BUN 24 H (7-18) mg/dL Creatinine 0.7 L (0.8-1.3) mg/dL Est Cr Clr Drug Dosing 94.15 mL/min Estimated GFR (MDRD) > 60 (>60) Glucose 87 (74-106) mg/dL Calcium 9.0 (8.5-10.1) mg/dL Crossmatch Result Diagrams: 03/24/21 06:00 03/24/21 06:00 Sepsis Event Note - Evaluation Sepsis Screening Result: No Definite Risk - Focused Exam Vital Signs: Vital Signs Temp Pulse Pulse Resp BP BP Pulse Ox 03/24/21 12:48 69 16 132/40 L 95 03/24/21 08:26 134/56 L 03/24/21 08:19 88 134/56 L 03/24/21 08:00 03/24/21 07:00 98.1 F 88 16 134/56 L 93 L 03/24/21 02:39 97.8 F 70 16 125/36 L 94 L Pulse Ox 03/24/21 12:48 03/24/21 08:26 03/24/21 08:19 03/24/21 08:00 93 L 03/24/21 07:00 03/24/21 02:39 - Problem List Review Problem List Initiated/Reviewed/Updated: Yes - My Orders Last 24 Hours: My Active Orders 03/23/21 21:00 Pantoprazole [ProTONIX] 40 mg PO BIDAC 03/25/21 05:11 HGB [HEMOGLOBIN] [HEME] AM 03/25/21 08:00 predniSONE 20 mg PO WITHBREAKFAST - Plan Plan:: ASSESSMENT AND PLAN ACUTE ON SUBACUTE HYPOXIC RESPIRATORY FAILURE-secondary to recent Covid pneumonia, bilateral pulmonary emboli, and probable acute bacterial pneumonia. CT scan obtained in [place] showed no evidence of new pulmonary emboli. Stable was switched to high flow nasal cannula, currently at 8 L/min -Continue supplemental oxygen -Continuous pulse oximetry -Discontinue Solu-Medrol -Begin prednisone taper 20 mg daily, today is day 1 of 4 BACTERIAL PNEUMONIA-most likely cause of significant worsening of shortness of breath and hypoxia. -Discontinue antibiotic therapy after today PROBABLE GI BLEED-significant drop in hemoglobin noted associated with symptoms of weakness and lightheadedness. Hemoglobin has been stable following t ransfusion of 2 units of red blood cells with no further evidence of active bleeding. -Recheck hemoglobin in a.m. -Protonix 40 mg po every 12 hours -Hold on endoscopy until respiratory status has stabilized ACUTE BLOOD LOSS ANEMIA-hemoglobin has remained fairly stable over the past few days -Management as above BILATERAL PULMONARY EMBOLI-associated with recent COVID-19 infection and pneumonia -Lovenox 80 mg subcu every 12 hours, plan to continue until after endoscopy -Transition to Eliquis after endoscopy URINARY RETENTION-Aquino catheter removed, he has done better with urination over the last 24 hours -Flomax 0.4 mg p.o. daily MAINTENANCE ISSUES -DVT prophylaxis; Lovenox as above -GI prophylaxis; Protonix as above -Aquino catheter; removed -Nutrition; regular diet -Nicotine dependence; not required CODE STATUS-full code ADMISSION STATUS-patient will be admitted to inpatient status, expect at least a 2 night hospital stay for evaluation and management of problems as outlined above. At the time of this admission I do not reasonably expected evaluation and management of this problem will require more than a 96 hour hospital stay. DISPOSITION-anticipate discharge to home after the hospital stay. PRIMARY CARE PROVIDER-patient is from out of the community and receives his heal th care in [facility]
[2021-03-24] MEDS: atorvaSTATin 20 MG Tab PO SCH (20:21)
[2021-03-24] MEDS: Cyproheptadine 4 MG Tab PO SCH (20:22)
[2021-03-24] MEDS: Tamsulosin 0.4 MG Cap.ER PO SCH (20:22)
[2021-03-24] MEDS: Mirtazapine 15 MG Tab PO SCH (20:23)
[2021-03-25] MEDS: Meropenem 1 GM in Sodium Chloride 0.9% 100 ML IV SCH (04:21)
[2021-03-25] MEDS: Tiotropium BR/Olodaterol HCL 4 GM Inhalation Spray 2.5mcg/1 dose; 10 doses INH SCH (07:17)
[2021-03-25] MEDS: Mometasone Furoate HFA 200 mcg/Puff 13 GM Inhaler INH SCH ×2 (07:17→20:15)
--- NOTE | 2021-03-25 07:28 | PN ---
DATE OF SERVICE: 03/25/2021 Cristhian's oxygen decreased to 8. Vital signs reveal respiration rate 16 and he is 96% by pulse oximetry on 8 L of O2. Remains to be afebrile. Oral intake 1780. Urine output 2650. He did have a bowel movement. Eating 100% of breakfast, lunch, and dinner. Labs, hemoglobin is 8.1. Remainder of review of system, per nursing report was negative. OBJECTIVE: Deferred. ASSESSMENT: 1. COVID. 2. Gastrointestinal bleed. PLAN: 1. Continue to wait until the patient is stable to schedule upper GI when he can tolerate IV sedation. 2. Evaluate p.r.n. or in a.m. Candice Xiao PA-C /[id number]
[2021-03-25] MEDS: Metoprolol Succinate 50 MG Tab.ER PO SCH (09:07)
[2021-03-25] MEDS: predniSONE 20 MG Tab PO SCH (09:08)
[2021-03-25] MEDS: Pantoprazole 40 MG Tab.CR PO SCH ×2 (09:08→17:43)
[2021-03-25] MEDS: Thiamine 100 MG Tab PO SCH (09:08)
[2021-03-25] MEDS: Losartan 50 MG Tab PO SCH (09:08)
[2021-03-25] MEDS: Oxybutynin 5 MG Tab PO SCH (09:08)
[2021-03-25] MEDS: Docusate Sodium 100 MG Cap PO SCH (09:09)
[2021-03-25] MEDS: DULoxetine 30 MG Cap PO SCH ×2 (09:09→20:17)
[2021-03-25] MEDS: Enoxaparin 80 MG/0.8 ML Syringe SUBCUT SCH ×2 (09:09→22:36)
[2021-03-25] MEDS: Ferrous Sulfate 325 MG Tab PO SCH ×2 (09:09→20:17)
[2021-03-25] MEDS: Gabapentin 400 MG Cap PO SCH ×2 (09:09→20:16)
--- NOTE | 2021-03-25 15:05 | PCM.PN ---
- General Info Date of Service: 03/25/21 Subjective Update: Mr. Reza is remained fairly stable since yesterday, continues to require 8 L/min of oxygen via high flow nasal cannula. There is been no further evidence of active bleeding in a as tolerated current therapy with enoxaparin. Strength and appetite seem to be improving on a daily basis. Functional Status: Reports: Tolerating Diet, Urinating - Review of Systems General: Reports: Weakness, Fatigue. Denies: Fever, Chills Pulmonary: Reports: Shortness of Breath. Denies: Pleuritic Chest Pain, Cough, Sputum, Hemoptysis, Wheezing Cardiovascular: Reports: Dyspnea on Exertion. Denies: Chest Pain, Palpitations, Orthopnea, PND, Edema, Lightheadedness Gastrointestinal: Reports: No Symptoms Genitourinary: Reports: No Symptoms - Patient Data Vitals - Most Recent: Last Vital Signs Temp 98.1 F 03/25/21 11:42 Pulse 74 03/25/21 14:31 Resp 16 03/25/21 14:31 BP 127/42 L 03/25/21 11:42 Pulse Ox 94 L 03/25/21 14:31 Weight - Most Recent: 194 lb I&O - Last 24 Hours: Intake & Output 03/25/21 03/25/21 03/25/21 06:59 14:59 22:59 Intake Total 100 880 Output Total 650 1900 Balance -550 -1020 Lab Results Last 24 Hours: Laboratory Results - last 24 hr 03/25/21 Range/Units 04:30 Hgb 8.1 L (12.0-15.0) g/dL Med Orders - Current: Current Medications Acetaminophen (Acetaminophen 325 Mg Tab) 650 mg PO Q4H PRN PRN Reason: Pain (Mild 1-3)/fever Atorvastatin Calcium (Atorvastatin 20 Mg Tab) 40 mg PO BEDTIME [facility] Last Admin: 03/24/21 20:21 Dose: 40 mg Documented by: Cyproheptadine HCl (Cyproheptadine 4 Mg Tab) 4 mg PO BEDTIME [facility] Last Admin: 03/24/21 20:22 Dose: 4 mg Documented by: Docusate Sodium (Docusate Sodium 100 Mg Cap) 100 mg PO DAILY [facility] Last Admin: 03/25/21 09:09 Dose: Not Given Documented by: Duloxetine HCl (Duloxetine 30 Mg Cap) 30 mg PO BID [facility] Last Admin: 03/25/21 09:09 Dose: 30 mg Documented by: Enoxaparin Sodium (Enoxaparin 80 Mg/0.8 Ml Syringe) 80 mg SUBCUT Q12H [facility] Last Admin: 03/25/21 09:09 Dose: 80 mg Documented by: Ferrous Sulfate (Ferrous Sulfate 325 Mg Tab) 325 mg PO BID [facility] Last Admin: 03/25/21 09:09 Dose: 325 mg Documented by: Gabapentin (Gabapentin 400 Mg Cap) 1,200 mg PO BID [facility] Last Admin: 03/25/21 09:09 Dose: 1,200 mg Documented by: Losartan Potassium (Losartan 50 Mg Tab) 50 mg PO DAILY [facility] Last Admin: 03/25/21 09:08 Dose: 50 mg Documented by: Metoprolol Succinate (Metoprolol Succinate 50 Mg Tab.Er) 50 mg PO QAM [facility] Last Admin: 03/25/21 09:07 Dose: 50 mg Documented by: Mirtazapine (Mirtazapine 15 Mg Tab) 30 mg PO BEDTIME [facility] Last Admin: 03/24/21 20:23 Dose: 30 mg Documented by: Mometasone Furoate (Mometasone Furoate Hfa 200 Mcg/Puff 13 Gm Inhaler) 0 gm INH BIDRT [facility] Last Admin: 03/25/21 07:17 Dose: 2 puff Documented by: Ondansetron HCl (Ondansetron 4 Mg/2 Ml Sdv) 4 mg IV Q4H PRN PRN Reason: Nausea/Vomiting Oxybutynin Chloride (Oxybutynin 5 Mg Tab) 5 mg PO DAILY [facility] Last Admin: 03/25/21 09:08 Dose: 5 mg Documented by: Pantoprazole Sodium (Pantoprazole 40 Mg Tab.Cr) 40 mg PO BIDAC [facility] Last Admin: 03/25/21 09:08 Dose: 40 mg Documented by: Polyethylene Glycol (Polyethylene Glycol 3350 Powder 17 Gm Packet) 17 gm PO DAILY PRN PRN Reason: Constipation Prednisone (Prednisone 20 Mg Tab) 20 mg PO WITHBREAKFAST [facility] Last Admin: 03/25/21 09:08 Dose: 20 mg Documented by: Sodium Chloride (Sodium Chloride 0.9% 10 Ml Syringe) 10 ml FLUSH ASDIRECTED PRN PRN Reason: Keep Vein Open Sodium Chloride (Aloe Vera/Sodium Chloride Gel 14.1 Gm Tube) 0 gm TREMAINE Q2H PRN PRN Reason: Other Tamsulosin HCl (Tamsulosin 0.4 Mg Cap.Er) 0.4 mg PO BEDTIME [facility] Last Admin: 03/24/21 20:22 Dose: 0.4 mg Documented by: Thiamine HCl (Thiamine 100 Mg Tab) 100 mg PO DAILY [facility] Last Admin: 03/25/21 09:08 Dose: 100 mg Documented by: Discontinued Medications Enoxaparin Sodium (Enoxaparin 80 Mg/0.8 Ml Syringe) 80 mg SUBCUT Q12H [facility] Last Admin: 03/20/21 09:00 Dose: 80 mg Documented by: Meropenem 1 gm/ Sodium (Chloride) 100 mls @ 200 mls/hr IV Q8H [facility] Stop: 03/25/21 08:00 Last Admin: 03/25/21 04:21 Dose: 200 mls/hr Documented by: Vancomycin HCl 1.25 gm/ Sodium (Chloride) 250 mls @ 166.667 mls/hr IV Q12H [facility] Last Admin: 03/21/21 09:41 Dose: 166.667 mls/hr Documented by: Vancomycin HCl 1.5 gm/ Sodium (Chloride) 250 mls @ 166.667 mls/hr IV Q12H [facility] Last Admin: 03/22/21 21:08 Dose: 166.667 mls/hr Documented by: Vancomycin HCl 1.75 gm/ Sodium (Chloride) 250 mls @ 166.667 mls/hr IV Q12H [facility] Stop: 03/25/21 08:00 Last Admin: 03/24/21 22:38 Dose: 166.667 mls/hr Documented by: Methylprednisolone Sodium Succinate (Methylprednisolone Sodium Succinate 40 Mg/1 Ml Sdv) 40 mg IVPUSH Q8H [facility] Last Admin: 03/20/21 03:35 Dose: 40 mg Documented by: Methylprednisolone Sodium Succinate (Methylprednisolone Sodium Succinate 40 Mg/1 Ml Sdv) 40 mg IVPUSH Q8H [facility] Last Admin: 03/23/21 13:11 Dose: 40 mg Documented by: Methylprednisolone Sodium Succinate (Methylprednisolone Sodium Succinate 40 Mg/1 Ml Sdv) 40 mg IVPUSH Q24H [facility] Last Admin: 03/24/21 08:20 Dose: 40 mg Documented by: Pantoprazole Sodium (Pantoprazole 40 Mg Vial) 40 mg IV Q12H [facility] Last Admin: 03/23/21 09:20 Dose: 40 mg Documented by: Vancomycin HCl (Vancomycin 1 Gm Sdv) 1 gm IV .PHARMACY TO DOSE [facility] Stop: 03/20/21 08:00 - Exam Quality Assessment: Supplemental Oxygen, DVT Prophylaxis General: Alert, Oriented, Cooperative, Mild Distress Lungs: Clear to Auscultation, Normal Respiratory Effort, Decreased Breath Sounds Cardiovascular: Regular Rate, Regular Rhythm, No Murmurs GI/Abdominal Exam: Soft, Non-Tender, No Organomegaly, No Distention Extremities: Non-Tender, No Pedal Edema - Patient Data Lab Results Last 24 hrs: Laboratory Results - last 24 hr 03/25/21 Range/Units 04:30 Hgb 8.1 L (12.0-15.0) g/dL Result Diagrams: 03/25/21 04:30 03/24/21 06:00 Sepsis Event Note - Evaluation Sepsis Screening Result: No Definite Risk - Focused Exam Vital Signs: Vital Signs Temp Pulse Pulse Resp BP BP Pulse Ox 03/25/21 14:31 74 16 94 L 03/25/21 11:42 98.1 F 74 16 127/42 L 96 03/25/21 09:08 138/84 03/25/21 09:07 86 138/84 03/25/21 08:00 98.1 F 86 16 138/84 91 L 03/25/21 04:29 97.4 F 73 16 123/49 L 96 Pulse Ox 03/25/21 14:31 03/25/21 11:42 03/25/21 09:08 03/25/21 09:07 03/25/21 08:00 93 L 03/25/21 04:29 - Problem List Review Problem List Initiated/Reviewed/Updated: Yes - My Orders Last 24 Hours: My Active Orders 03/25/21 08:00 predniSONE 20 mg PO WITHBREAKFAST 03/25/21 17:00 HGB [HEMOGLOBIN] [HEME] Stat 03/26/21 05:11 HGB [HEMOGLOBIN] [HEME] AM - Plan Plan:: ASSESSMENT AND PLAN ACUTE ON SUBACUTE HYPOXIC RESPIRATORY FAILURE-secondary to recent Covid pneumonia, bilateral pulmonary emboli, and probable acute bacterial pneumonia. CT scan obtained in [place] showed no evidence of new pulmonary emboli. Remains on high flow nasal cannula 8 L/min -Continue supplemental oxygen -Continuous pulse oximetry -Discontinue Solu-Medrol -Begin prednisone taper 20 mg daily, today is day 2 of 4 BACTERIAL PNEUMONIA-most likely cause of significant worsening of shortness of breath and hypoxia. -Discontinue antibiotic therapy after today PROBABLE GI BLEED-significant drop in hemoglobin noted associated with symptoms of weakness and lightheadedness. Hemoglobin has been stable following transfusion of 2 units of red blood cells with no further evidence of active bleeding. -Recheck hemoglobin this afternoon and in a.m. -Protonix 40 mg po every 12 hours -Hold on endoscopy until respiratory status has stabilized ACUTE BLOOD LOSS ANEMIA-hemoglobin has remained fairly stable over the past few days -Management as above BILATERAL PULMONARY EMBOLI-associated with recent COVID-19 infection and pneumonia -Lovenox 80 mg subcu every 12 hours, plan to continue until after endoscopy -Transition to Eliquis after endoscopy URINARY RETENTION-Aquino catheter removed, he has done better with urination over the last 48 hours -Flomax 0.4 mg p.o. daily MAINTENANCE ISSUES -DVT prophylaxis; Lovenox as above -GI prophylaxis; Protonix as above -Aquino catheter; removed -Nutrition; regular diet -Nicotine dependence; not required CODE STATUS-full code ADMISSION STATUS-patient will be admitted to inpatient status, expect at least a 2 night hospital stay for evaluation and management of problems as outlined above. At the time of this admission I do not reasonably expected evaluation and management of this problem will require more than a 96 hour hospital stay. DISPOSITION-anticipate discharge to home after the hospital stay. PRIMARY CARE PROVIDER-patient is from out of the community and receives his health care in [facility]
[2021-03-25] MEDS: Tamsulosin 0.4 MG Cap.ER PO SCH (20:17)
[2021-03-25] MEDS: atorvaSTATin 20 MG Tab PO SCH (20:17)
[2021-03-25] MEDS: Cyproheptadine 4 MG Tab PO SCH (20:17)
[2021-03-25] MEDS: Mirtazapine 15 MG Tab PO SCH (20:18)
[2021-03-26] MEDS: Mometasone Furoate HFA 200 mcg/Puff 13 GM Inhaler INH SCH ×2 (07:08→20:00)
[2021-03-26] MEDS: Tiotropium BR/Olodaterol HCL 4 GM Inhalation Spray 2.5mcg/1 dose; 10 doses INH SCH (07:08)
[2021-03-26] MEDS: Pantoprazole 40 MG Tab.CR PO SCH ×2 (08:05→16:10)
[2021-03-26] MEDS: predniSONE 20 MG Tab PO SCH (08:05)
--- NOTE | 2021-03-26 08:40 | PN ---
DATE OF SERVICE: 03/26/2021 SUBJECTIVE: Cristhian, his vital signs, he is on O2 of 4 L, 90%. Per nursing staff, he was going to have a trial with more physical activity. Hemoglobin this morning was 8.6. REVIEW OF SYSTEMS: Remainder of review of systems negative. OBJECTIVE: Deferred. ASSESSMENT: COVID, gastrointestinal bleed. PLAN: Continue to wait until patient is stable to schedule upper GI when he can tolerate IV sedation. Evaluate p.r.n. or in a.m. Candice Xiao PA-C /[id number]
[2021-03-26] MEDS: Docusate Sodium 100 MG Cap PO SCH (09:12)
[2021-03-26] MEDS: Oxybutynin 5 MG Tab PO SCH (09:13)
[2021-03-26] MEDS: Thiamine 100 MG Tab PO SCH (09:13)
[2021-03-26] MEDS: Gabapentin 400 MG Cap PO SCH ×2 (09:13→20:00)
[2021-03-26] MEDS: Ferrous Sulfate 325 MG Tab PO SCH ×2 (09:13→20:02)
[2021-03-26] MEDS: Metoprolol Succinate 50 MG Tab.ER PO SCH (09:13)
[2021-03-26] MEDS: Losartan 50 MG Tab PO SCH (09:13)
[2021-03-26] MEDS: DULoxetine 30 MG Cap PO SCH ×2 (09:13→20:01)
[2021-03-26] MEDS: Enoxaparin 80 MG/0.8 ML Syringe SUBCUT SCH ×2 (09:14→21:03)
--- NOTE | 2021-03-26 10:50 | PCM.PN ---
- General Info Date of Service: 03/26/21 Subjective Update: There were no acute events overnight. Patient thinks that he is getting a little bit better each day. Oxygenation stable at rest but does desaturate significantly even with increased supplemental oxygen with any activity. No chest pain or chest tightness. Appetite is good. No fevers. Hemoglobin stable with no evidence for bleeding. Functional Status: Reports: Pain Controlled, Tolerating Diet - Review of Systems General: Reports: Weakness Pulmonary: Reports: Shortness of Breath - Patient Data Vitals - Most Recent: Last Vital Signs Temp 36.1 C 03/26/21 07:03 Pulse 94 03/26/21 09:13 Resp 18 03/26/21 07:03 BP 119/41 L 03/26/21 09:13 Pulse Ox 93 L 03/26/21 08:00 Weight - Most Recent: 87.543 kg I&O - Last 24 Hours: Intake & Output 03/25/21 03/26/21 03/26/21 22:59 06:59 14:59 Intake Total 2100 300 900 Output Total 2650 1600 600 Balance -550 -1300 300 Lab Results Last 24 Hours: Laboratory Results - last 24 hr 03/25/21 03/26/21 Range/Units 17:05 04:25 Hgb 8.6 L 8.6 L (12.0-15.0) g/dL Med Orders - Current: Current Medications Acetaminophen (Acetaminophen 325 Mg Tab) 650 mg PO Q4H PRN PRN Reason: Pain (Mild 1-3)/fever Atorvastatin Calcium (Atorvastatin 20 Mg Tab) 40 mg PO BEDTIME [facility] Last Admin: 03/25/21 20:17 Dose: 40 mg Documented by: Cyproheptadine HCl (Cyproheptadine 4 Mg Tab) 4 mg PO BEDTIME [facility] Last Admin: 03/25/21 20:17 Dose: 4 mg Documented by: Docusate Sodium (Docusate Sodium 100 Mg Cap) 100 mg PO DAILY [facility] Last Admin: 03/26/21 09:12 Dose: Not Given Documented by: Duloxetine HCl (Duloxetine 30 Mg Cap) 30 mg PO BID [facility] Last Admin: 03/26/21 09:13 Dose: 30 mg Documented by: Enoxaparin Sodium (Enoxaparin 80 Mg/0.8 Ml Syringe) 80 mg SUBCUT Q12H [facility] Last Admin: 03/26/21 09:14 Dose: 80 mg Documented by: Ferrous Sulfate (Ferrous Sulfate 325 Mg Tab) 325 mg PO BID [facility] Last Admin: 03/26/21 09:13 Dose: 325 mg Documented by: Gabapentin (Gabapentin 400 Mg Cap) 1,200 mg PO BID [facility] Last Admin: 03/26/21 09:13 Dose: 1,200 mg Documented by: Losartan Potassium (Losartan 50 Mg Tab) 50 mg PO DAILY [facility] Last Admin: 03/26/21 09:13 Dose: 50 mg Documented by: Metoprolol Succinate (Metoprolol Succinate 50 Mg Tab.Er) 50 mg PO QAM [facility] Last Admin: 03/26/21 09:13 Dose: 50 mg Documented by: Mirtazapine (Mirtazapine 15 Mg Tab) 30 mg PO BEDTIME [facility] Last Admin: 03/25/21 20:18 Dose: 30 mg Documented by: Mometasone Furoate (Mometasone Furoate Hfa 200 Mcg/Puff 13 Gm Inhaler) 0 gm INH BIDRT [facility] Last Admin: 03/26/21 07:08 Dose: 2 puff Documented by: Ondansetron HCl (Ondansetron 4 Mg/2 Ml Sdv) 4 mg IV Q4H PRN PRN Reason: Nausea/Vomiting Oxybutynin Chloride (Oxybutynin 5 Mg Tab) 5 mg PO DAILY [facility] Last Admin: 03/26/21 09:13 Dose: 5 mg Documented by: Pantoprazole Sodium (Pantoprazole 40 Mg Tab.Cr) 40 mg PO BIDAC [facility] Last Admin: 03/26/21 08:05 Dose: 40 mg Documented by: Polyethylene Glycol (Polyethylene Glycol 3350 Powder 17 Gm Packet) 17 gm PO DAILY PRN PRN Reason: Constipation Prednisone (Prednisone 20 Mg Tab) 20 mg PO WITHBREAKFAST [facility] Last Admin: 03/26/21 08:05 Dose: 20 mg Documented by: Sodium Chloride (Sodium Chloride 0.9% 10 Ml Syringe) 10 ml FLUSH ASDIRECTED PRN PRN Reason: Keep Vein Open Sodium Chloride (Aloe Vera/Sodium Chloride Gel 14.1 Gm Tube) 0 gm TREMAINE Q2H PRN PRN Reason: Other Tamsulosin HCl (Tamsulosin 0.4 Mg Cap.Er) 0.4 mg PO BEDTIME [facility] Last Admin: 03/25/21 20:17 Dose: 0.4 mg Documented by: Thiamine HCl (Thiamine 100 Mg Tab) 100 mg PO DAILY [facility] Last Admin: 03/26/21 09:13 Dose: 100 mg Documented by: Discontinued Medications Enoxaparin Sodium (Enoxaparin 80 Mg/0.8 Ml Syringe) 80 mg SUBCUT Q12H [facility] Last Admin: 03/20/21 09:00 Dose: 80 mg Documented by: Meropenem 1 gm/ Sodium (Chloride) 100 mls @ 200 mls/hr IV Q8H [facility] Stop: 03/25/21 08:00 Last Admin: 03/25/21 04:21 Dose: 200 mls/hr Documented by: Vancomycin HCl 1.25 gm/ Sodium (Chloride) 250 mls @ 166.667 mls/hr IV Q12H [facility] Last Admin: 03/21/21 09:41 Dose: 166.667 mls/hr Documented by: Vancomycin HCl 1.5 gm/ Sodium (Chloride) 250 mls @ 166.667 mls/hr IV Q12H [facility] Last Admin: 03/22/21 21:08 Dose: 166.667 mls/hr Documented by: Vancomycin HCl 1.75 gm/ Sodium (Chloride) 250 mls @ 166.667 mls/hr IV Q12H [facility] Stop: 03/25/21 08:00 Last Admin: 03/24/21 22:38 Dose: 166.667 mls/hr Documented by: Methylprednisolone Sodium Succinate (Methylprednisolone Sodium Succinate 40 Mg/1 Ml Sdv) 40 mg IVPUSH Q8H [facility] Last Admin: 03/20/21 03:35 Dose: 40 mg Documented by: Methylprednisolone Sodium Succinate (Methylprednisolone Sodium Succinate 40 Mg/1 Ml Sdv) 40 mg IVPUSH Q8H [facility] Last Admin: 03/23/21 13:11 Dose: 40 mg Documented by: Methylprednisolone Sodium Succinate (Methylprednisolone Sodium Succinate 40 Mg/1 Ml Sdv) 40 mg IVPUSH Q24H [facility] Last Admin: 03/24/21 08:20 Dose: 40 mg Documented by: Pantoprazole Sodium (Pantoprazole 40 Mg Vial) 40 mg IV Q12H [facility] Last Admin: 03/23/21 09:20 Dose: 40 mg Documented by: Vancomycin HCl (Vancomycin 1 Gm Sdv) 1 gm IV .PHARMACY TO DOSE [facility] Stop: 03/20/21 08:00 - Exam Quality Assessment: Supplemental Oxygen General: Alert, Oriented, Cooperative, No Acute Distress Lungs: Normal Respiratory Effort, Crackles (few right midlung ) Cardiovascular: Regular Rate, Regular Rhythm GI/Abdominal Exam: Soft, No Distention Extremities: No Pedal Edema. No: Increased Warmth Skin: Warm, Dry Psy/Mental Status: Alert, Normal Affect - Patient Data Lab Results Last 24 hrs: Laboratory Results - last 24 hr 03/25/21 03/26/21 Range/Units 17:05 04:25 Hgb 8.6 L 8.6 L (12.0-15.0) g/dL Result Diagrams: 03/26/21 04:25 03/24/21 06:00 Sepsis Event Note - Evaluation Sepsis Screening Result: No Definite Risk - Focused Exam Vital Signs: Vital Signs Temp Pulse Pulse Resp BP BP Pulse Ox 03/26/21 09:13 94 119/41 L 03/26/21 08:00 03/26/21 07:03 36.1 C 75 18 136/52 L 90 L 03/26/21 02:31 36.0 C L 84 16 141/60 H 94 L Pulse Ox 03/26/21 09:13 03/26/21 08:00 93 L 03/26/21 07:03 03/26/21 02:31 - Problem List Review Problem List Initiated/Reviewed/Updated: Yes - My Orders Last 24 Hours: My Active Orders 03/27/21 05:00 BASIC METABOLIC PANEL,BMP [CHEM] Timed CRP [C-REACTIVE PROTEIN] [CHEM] Timed D-DIMER QUANTITATIVE [COAG] Timed HGB [HEMOGLOBIN] [HEME] Timed - Plan Plan:: ASSESSMENT AND PLAN - ACUTE ON SUBACUTE HYPOXIC RESPIRATORY FAILURE-secondary to recent Covid pneumonia, bilateral pulmonary emboli, and probable acute bacterial pneumonia. CT scan obtained in [place] showed no evidence of new pulmonary emboli. Decreasing supplemental oxygen needs at rest but still quite hypoxic with any activity. -Continue supplemental oxygen -Continuous pulse oximetry -Begin prednisone taper 20 mg daily, today is day 3 of 4 BACTERIAL PNEUMONIA-most likely cause of significant worsening of shortness of breath and hypoxia. Clinically improving. He has completed antibiotic therapy. PROBABLE GI BLEED-significant drop in hemoglobin noted associated with symptoms of weakness and lightheadedness. Hemoglobin stable the past couple of days. -Recheck hemoglobin this afternoon and in a.m. -Protonix 40 mg po every 12 hours -Hold on endoscopy until respiratory status has stabilized ACUTE BLOOD LOSS ANEMIA-hemoglobin has been stable with no evidence for bleeding. -Management as above BILATERAL PULMONARY EMBOLI-associated with recent COVID-19 infection and pneumonia. -Lovenox 80 mg subcu every 12 hours, plan to continue until after endoscopy -Transition to Eliquis after endoscopy URINARY RETENTION-doing well since Aquino catheter was removed. -Flomax 0.4 mg p.o. daily MAINTENANCE ISSUES -DVT prophylaxis; Lovenox as above -GI prophylaxis; Protonix as above -Aquino catheter; removed -Nutrition; regular diet DISPOSITION-anticipate discharge to home after the hospital stay. Agapito Salazar MD
[2021-03-26] MEDS: atorvaSTATin 20 MG Tab PO SCH (20:01)
[2021-03-26] MEDS: Mirtazapine 15 MG Tab PO SCH (20:01)
[2021-03-26] MEDS: Tamsulosin 0.4 MG Cap.ER PO SCH (20:01)
[2021-03-26] MEDS: Cyproheptadine 4 MG Tab PO SCH (20:02)
[2021-03-27] MEDS: Mometasone Furoate HFA 200 mcg/Puff 13 GM Inhaler INH SCH ×2 (07:14→21:20)
[2021-03-27] MEDS: Tiotropium BR/Olodaterol HCL 4 GM Inhalation Spray 2.5mcg/1 dose; 10 doses INH SCH (07:14)
--- NOTE | 2021-03-27 07:43 | PN ---
DATE OF SERVICE: 03/27/2021 Janay oxygen is 97% on 4 L. Hemoglobin 8.2. D-dimer 781.38. His oxygen decreases with very little exertion per nursing staff. He has had no further GI bleeding. OBJECTIVE: Deferred. ASSESSMENT: 1. COVID, gastrointestinal bleed. Continue to wait until the patient is stable to schedule upper GI when he can tolerate IV sedation. 2. Evaluate p.r.n. or in a.m. Candice Xiao PA-C /[phone]
[2021-03-27] MEDS: predniSONE 20 MG Tab PO SCH (07:45)
[2021-03-27] MEDS: Pantoprazole 40 MG Tab.CR PO SCH ×2 (07:45→15:46)
[2021-03-27] MEDS: Docusate Sodium 100 MG Cap PO SCH (08:42)
[2021-03-27] MEDS: Thiamine 100 MG Tab PO SCH (08:43)
[2021-03-27] MEDS: Gabapentin 400 MG Cap PO SCH ×2 (08:43→21:17)
[2021-03-27] MEDS: Oxybutynin 5 MG Tab PO SCH (08:43)
[2021-03-27] MEDS: Losartan 50 MG Tab PO SCH (08:43)
[2021-03-27] MEDS: DULoxetine 30 MG Cap PO SCH ×2 (08:43→21:16)
[2021-03-27] MEDS: Ferrous Sulfate 325 MG Tab PO SCH ×2 (08:43→21:17)
[2021-03-27] MEDS: Metoprolol Succinate 50 MG Tab.ER PO SCH (08:47)
[2021-03-27] MEDS ORDERED: Sodium Chloride 0.65% Nasal Spray 45 ML Bottle NAS PRN (08:54)
[2021-03-27] MEDS: Enoxaparin 80 MG/0.8 ML Syringe SUBCUT SCH ×2 (09:25→21:18)
--- NOTE | 2021-03-27 12:12 | PCM.PN ---
- General Info Date of Service: 03/27/21 Subjective Update: No acute events overnight. No significant change in respiratory status from yesterday. He continues to be fairly stable at rest. With any sort of activity he desaturates quickly. Even minimal activity such as changing positions in bed. No fevers. D-dimer has improved. CRP has improved. Symptomatically he feels well. Appetite is good. Functional Status: Reports: Pain Controlled, Tolerating Diet - Review of Systems Pulmonary: Denies: Shortness of Breath - Patient Data Vitals - Most Recent: Last Vital Signs Temp 36.7 C 03/27/21 11:11 Pulse 73 03/27/21 11:11 Resp 18 03/27/21 11:11 BP 121/44 L 03/27/21 11:11 Pulse Ox 97 03/27/21 11:11 Weight - Most Recent: 87.18 kg I&O - Last 24 Hours: Intake & Output 03/26/21 03/27/21 03/27/21 22:59 06:59 14:59 Intake Total 1400 1020 Output Total 2150 1500 1150 Balance -750 -480 -1150 Lab Results Last 24 Hours: Laboratory Results - last 24 hr 03/27/21 03/27/21 03/27/21 Range/Units 04:30 04:30 04:30 Hgb 8.2 L (12.0-15.0) g/dL D-Dimer, Quantitative 781.38 H (0.0-500.0) ng/mL Sodium 143 (140-148) mmol/L Potassium 4.3 (3.6-5.2) mmol/L Chloride 103 (100-108) mmol/L Carbon Dioxide 36 H (21-32) mmol/L Anion Gap 8.3 (5.0-14.0) mmol/L BUN 26 H (7-18) mg/dL Creatinine 0.7 L (0.8-1.3) mg/dL Est Cr Clr Drug Dosing 94.15 mL/min Estimated GFR (MDRD) > 60 (>60) Glucose 90 (74-106) mg/dL Calcium 8.7 (8.5-10.1) mg/dL C-Reactive Protein 0.87 H (0.0-0.3) mg/dL Med Orders - Current: Current Medications Acetaminophen (Acetaminophen 325 Mg Tab) 650 mg PO Q4H PRN PRN Reason: Pain (Mild 1-3)/fever Atorvastatin Calcium (Atorvastatin 20 Mg Tab) 40 mg PO BEDTIME [facility] Last Admin: 03/26/21 20:01 Dose: 40 mg Documented by: Cyproheptadine HCl (Cyproheptadine 4 Mg Tab) 4 mg PO BEDTIME [facility] Last Admin: 03/26/21 20:02 Dose: 4 mg Documented by: Docusate Sodium (Docusate Sodium 100 Mg Cap) 100 mg PO DAILY [facility] Last Admin: 03/27/21 08:42 Dose: Not Given Documented by: Duloxetine HCl (Duloxetine 30 Mg Cap) 30 mg PO BID [facility] Last Admin: 03/27/21 08:43 Dose: 30 mg Documented by: Enoxaparin Sodium (Enoxaparin 80 Mg/0.8 Ml Syringe) 80 mg SUBCUT Q12H [facility] Last Admin: 03/27/21 09:25 Dose: 80 mg Documented by: Ferrous Sulfate (Ferrous Sulfate 325 Mg Tab) 325 mg PO BID [facility] Last Admin: 03/27/21 08:43 Dose: 325 mg Documented by: Gabapentin (Gabapentin 400 Mg Cap) 1,200 mg PO BID [facility] Last Admin: 03/27/21 08:43 Dose: 1,200 mg Documented by: Losartan Potassium (Losartan 50 Mg Tab) 50 mg PO DAILY [facility] Last Admin: 03/27/21 08:43 Dose: 50 mg Documented by: Metoprolol Succinate (Metoprolol Succinate 50 Mg Tab.Er) 50 mg PO QAM [facility] Last Admin: 03/27/21 08:47 Dose: 50 mg Documented by: Mirtazapine (Mirtazapine 15 Mg Tab) 30 mg PO BEDTIME [facility] Last Admin: 03/26/21 20:01 Dose: 30 mg Documented by: Mometasone Furoate (Mometasone Furoate Hfa 200 Mcg/Puff 13 Gm Inhaler) 0 gm INH BIDRT [facility] Last Admin: 03/27/21 07:14 Dose: 2 puff Documented by: Ondansetron HCl (Ondansetron 4 Mg/2 Ml Sdv) 4 mg IV Q4H PRN PRN Reason: Nausea/Vomiting Oxybutynin Chloride (Oxybutynin 5 Mg Tab) 5 mg PO DAILY [facility] Last Admin: 03/27/21 08:43 Dose: 5 mg Documented by: Pantoprazole Sodium (Pantoprazole 40 Mg Tab.Cr) 40 mg PO BIDAC [facility] Last Admin: 03/27/21 07:45 Dose: 40 mg Documented by: Polyethylene Glycol (Polyethylene Glycol 3350 Powder 17 Gm Packet) 17 gm PO DAILY PRN PRN Reason: Constipation Prednisone (Prednisone 20 Mg Tab) 20 mg PO WITHBREAKFAST [facility] Last Admin: 03/27/21 07:45 Dose: 20 mg Documented by: Sodium Chloride (Sodium Chloride 0.9% 10 Ml Syringe) 10 ml FLUSH ASDIRECTED PRN PRN Reason: Keep Vein Open Sodium Chloride (Aloe Vera/Sodium Chloride Gel 14.1 Gm Tube) 0 gm TREMAINE Q2H PRN PRN Reason: Other Last Admin: 03/27/21 08:47 Dose: 1 applic Documented by: Sodium Chloride (Sodium Chloride 0.65% Nasal [place] 45 Ml Bottle) 1 ml TREMAINE Q2H PRN PRN Reason: Nasal Dryness Last Admin: 03/27/21 09:25 Dose: 1 applic Documented by: Tamsulosin HCl (Tamsulosin 0.4 Mg Cap.Er) 0.4 mg PO BEDTIME [facility] Last Admin: 03/26/21 20:01 Dose: 0.4 mg Documented by: Thiamine HCl (Thiamine 100 Mg Tab) 100 mg PO DAILY [facility] Last Admin: 03/27/21 08:43 Dose: 100 mg Documented by: Discontinued Medications Enoxaparin Sodium (Enoxaparin 80 Mg/0.8 Ml Syringe) 80 mg SUBCUT Q12H [facility] Last Admin: 03/20/21 09:00 Dose: 80 mg Documented by: Meropenem 1 gm/ Sodium (Chloride) 100 mls @ 200 mls/hr IV Q8H [facility] Stop: 03/25/21 08:00 Last Admin: 03/25/21 04:21 Dose: 200 mls/hr Documented by: Vancomycin HCl 1.25 gm/ Sodium (Chloride) 250 mls @ 166.667 mls/hr IV Q12H [facility] Last Admin: 03/21/21 09:41 Dose: 166.667 mls/hr Documented by: Vancomycin HCl 1.5 gm/ Sodium (Chloride) 250 mls @ 166.667 mls/hr IV Q12H [facility] Last Admin: 03/22/21 21:08 Dose: 166.667 mls/hr Documented by: Vancomycin HCl 1.75 gm/ Sodium (Chloride) 250 mls @ 166.667 mls/hr IV Q12H [facility] Stop: 03/25/21 08:00 Last Admin: 03/24/21 22:38 Dose: 166.667 mls/hr Documented by: Methylprednisolone Sodium Succinate (Methylprednisolone Sodium Succinate 40 Mg/1 Ml Sdv) 40 mg IVPUSH Q8H [facility] Last Admin: 03/20/21 03:35 Dose: 40 mg Documented by: Methylprednisolone Sodium Succinate (Methylprednisolone Sodium Succinate 40 Mg/1 Ml Sdv) 40 mg IVPUSH Q8H [facility] Last Admin: 03/23/21 13:11 Dose: 40 mg Documented by: Methylprednisolone Sodium Succinate (Methylprednisolone Sodium Succinate 40 Mg/1 Ml Sdv) 40 mg IVPUSH Q24H [facility] Last Admin: 03/24/21 08:20 Dose: 40 mg Documented by: Pantoprazole Sodium (Pantoprazole 40 Mg Vial) 40 mg IV Q12H [facility] Last Admin: 03/23/21 09:20 Dose: 40 mg Documented by: Vancomycin HCl (Vancomycin 1 Gm Sdv) 1 gm IV .PHARMACY TO DOSE [facility] Stop: 03/20/21 08:00 - Exam Quality Assessment: Supplemental Oxygen General: Alert, Oriented, Cooperative, No Acute Distress Lungs: Normal Respiratory Effort GI/Abdominal Exam: Soft, No Distention Extremities: No Pedal Edema Psy/Mental Status: Alert, Normal Affect - Patient Data Lab Results Last 24 hrs: Laboratory Results - last 24 hr 03/27/21 03/27/21 03/27/21 Range/Units 04:30 04:30 04:30 Hgb 8.2 L (12.0-15.0) g/dL D-Dimer, Quantitative 781.38 H (0.0-500.0) ng/mL Sodium 143 (140-148) mmol/L Potassium 4.3 (3.6-5.2) mmol/L Chloride 103 (100-108) mmol/L Carbon Dioxide 36 H (21-32) mmol/L Anion Gap 8.3 (5.0-14.0) mmol/L BUN 26 H (7-18) mg/dL Creatinine 0.7 L (0.8-1.3) mg/dL Est Cr Clr Drug Dosing 94.15 mL/min Estimated GFR (MDRD) > 60 (>60) Glucose 90 (74-106) mg/dL Calcium 8.7 (8.5-10.1) mg/dL C-Reactive Protein 0.87 H (0.0-0.3) mg/dL Result Diagrams: 03/27/21 04:30 03/27/21 04:30 Sepsis Event Note - Evaluation Sepsis Screening Result: No Definite Risk - Focused Exam Vital Signs: Vital Signs Temp Pulse Pulse Resp BP BP Pulse Ox 03/27/21 11:11 36.7 C 73 18 121/44 L 97 03/27/21 08:47 89 137/54 L 03/27/21 08:43 137/54 L 03/27/21 07:00 37.2 C 77 18 129/68 92 L 03/27/21 02:45 163/61 H 03/27/21 02:17 36.7 C 80 18 126/36 L 97 - Problem List Review Problem List Initiated/Reviewed/Updated: Yes - My Orders Last 24 Hours: My Active Orders 03/26/21 14:13 PT Evaluation and Treatment [CONS] Routine 03/27/21 08:54 Sodium Chloride 0.65% [[place] Nasal [place]] 1 ml TREMAINE Q2H PRN - Plan Plan:: ASSESSMENT AND PLAN - ACUTE ON SUBACUTE HYPOXIC RESPIRATORY FAILURE-secondary to recent Covid pneumonia, bilateral pulmonary emboli, and probable acute bacterial pneumonia. Stable supplemental oxygen needs at rest but still quite hypoxic with any activity. -Continue supplemental oxygen -Continuous pulse oximetry -Begin prednisone taper 20 mg daily, today is day 4 of 4. Plan to decrease to 10 mg tomorrow BACTERIAL PNEUMONIA-most likely cause of acute worsening of shortness of breath and hypoxia. Clinically improving. He has completed antibiotic therapy. PROBABLE GI BLEED-significant drop in hemoglobin noted associated with symptoms of weakness and lightheadedness. Hemoglobin stable the past couple of days. -Recheck hemoglobin in a.m. -Protonix 40 mg po every 12 hours -Hold on endoscopy until respiratory status has stabilized, hopefully in a day or 2 ACUTE BLOOD LOSS ANEMIA-hemoglobin has been stable with no evidence for bleeding. -Management as above BILATERAL PULMONARY EMBOLI-associated with recent COVID-19 infection and pneumonia. -Lovenox 80 mg subcu every 12 hours, plan to continue until after endoscopy -Transition to apixaban after endoscopy URINARY RETENTION-doing well since Aquino catheter was removed. -Flomax 0.4 mg p.o. daily MAINTENANCE ISSUES -DVT prophylaxis; Lovenox as above -GI prophylaxis; Protonix as above -Nutrition; regular diet DISPOSITION-anticipate discharge to home with home oxygen and possibly home care after the hospital stay. Agapito Salazar MD
--- NOTE | 2021-03-27 14:10 | PCM.HP.2 ---
H&P History of Present Illness - General Admit Problem/Dx: Admission Diagnosis/Problem Admission Diagnosis/Problem Patient was admitted for Covid 19. His hemoglobin was low and a consultation was made to surgery for a Colonoscopy when he is stable. - Related Data Allergies/Adverse Reactions: Allergies Allergy/AdvReac Type Severity Reaction Status Date / Time cefepime Allergy Other Verified 03/19/21 19:05 Penicillins Allergy Rash Verified 03/19/21 19:05 Sulfa (Sulfonamide Allergy Rash Verified 03/19/21 19:05 Antibiotics) acetaminophen [From Vicodin] AdvReac Disorientat Verified 03/20/21 09:42 ion hydrocodone [From Vicodin] AdvReac Disorientat Verified 03/20/21 09:42 ion morphine AdvReac Disorientat Verified 03/20/21 09:42 ion Home Medications: Home Meds Cyproheptadine HCl 4 mg PO BEDTIME 03/19/21 [History] DULoxetine HCl [Cymbalta] 30 mg PO BID 03/19/21 [History] Docusate Sodium 100 mg PO DAILY 03/19/21 [History] Ferrous Sulfate 325 mg PO BID 03/19/21 [History] Gabapentin [Neurontin] 1,200 mg PO BID 03/19/21 [History] Losartan Potassium 50 mg PO DAILY 03/19/21 [History] Metoprolol Succinate 50 mg PO QAM 03/19/21 [History] Mirtazapine 30 mg PO BEDTIME 03/19/21 [History] Multivitamin 1 tab PO DAILY 03/19/21 [History] Oxybutynin 5 mg PO DAILY 03/19/21 [History] Sennosides/Docusate Sodium [Senna-Docusate Sodium Tablet] 1 - 2 tab PO BID 03/19/21 [History] Thiamine [Vitamin B-1] 100 mg PO DAILY 03/19/21 [History] atorvaSTATin [Lipitor] 40 mg PO BEDTIME 03/19/21 [History] Mometasone Furoate 200mcg [Asmanex HFA 200mcg] 2 puff PO BID 03/20/21 [History] Tiotropium Br/Olodaterol HCl [Stiolto Respimat Inhal [place]] 2 inhalation PO DAILY 03/20/21 [History] Past Medical History HEENT History: Reports: Hard of Hearing, Impaired Vision Cardiovascular History: Reports: Blood Clots/VTE/DVT, Hypertension, SOB on Exertion Respiratory History: Reports: COPD, PE, SOB Genitourinary History: Reports: Other (See Below) Other Genitourinary History: bladder cancer [id number] Musculoskeletal History: Reports: Arthritis, Neck Pain, Chronic Other Musculoskeletal History: neck plates Neurological History: Reports: TIA Psychiatric History: Reports: PTSD Hematologic History: Reports: Blood Transfusion(s) Immunologic History: Reports: None Oncologic (Cancer) History: Reports: Bladder - Infectious Disease History Infectious Disease History: Reports: Chicken Pox - Past Surgical History HEENT Surgical History: Reports: LASIK Respiratory Surgical History: Reports: None Male Surgical History: Reports: None Social & Family History - Tobacco Use Tobacco Use Status *Q: Former Tobacco User Years of Tobacco use: 50 Packs/Tins Daily: 0.5 Used Tobacco, but Quit: Yes Month/Year Tobacco Last Used: 01/2021 Second Hand Smoke Exposure: No - Caffeine Use Caffeine Use: Reports: Coffee - Alcohol Use Days Per Week of Alcohol Use: 1 Number of Drinks Per Day: 1 Total Drinks Per Week: 1 Date of Last Drink: 01/26/21 - Recreational Drug Use Recreational Drug Use: No Exam - Vital Signs Vital Signs: Last Vital Signs Temp 98.0 F 03/27/21 11:11 Pulse 73 03/27/21 11:11 Resp 18 03/27/21 11:11 BP 121/44 L 03/27/21 11:11 Pulse Ox 97 03/27/21 11:11 Weight: 192 lb 3.2 oz - Exam General: Alert, Oriented, 4 HEENT: PERRLA, Hearing Intact, Mucosa Moist & [place], Nares Patent, Normal Nasal Septum, Posterior Pharynx Clear, Conjunctiva Clear, EOMI, EACs Clear, TMs Clear Neck: Supple, Trachea Midline, 2 Lungs: Clear to Auscultation, Normal Respiratory Effort Cardiovascular: Regular Rate, Regular Rhythm GI/Abdominal Exam: Normal Bowel Sounds, Soft, Non-Tender, No Organomegaly, No Distention, No Abnormal Bruit, No Mass, Pelvis Stable (Male) Exam: No Hernia, Normal Inspection, Normal Prostate, Circumcised Rectal (Males) Exam: Normal Exam, Normal Rectal Tone, Prostate Normal Back Exam: Normal Inspection, Full Range of Motion, NT Extremities: Normal Inspection, Normal Range of Motion, Non-Tender, No Pedal Edema, Normal Capillary Refill Skin: Warm, Dry, Intact Neurological: Cranial Nerves Intact, Reflexes Equal Bilateral Neuro Extensive - Mental Status: Alert, Oriented x3, Normal Mood/Affect, Normal Cognition Neuro Extensive - Motor, Sensory, Reflexes: CN II-XII Intact, Normal Gait, Normal Reflexes Psychiatric: Alert, Normal Affect, Normal Mood - Patient Data Lab Results Last 24 hrs: Laboratory Results - last 24 hr 03/27/21 03/27/21 03/27/21 Range/Units 04:30 04:30 04:30 Hgb 8.2 L (12.0-15.0) g/dL D-Dimer, Quantitative 781.38 H (0.0-500.0) ng/mL Sodium 143 (140-148) mmol/L Potassium 4.3 (3.6-5.2) mmol/L Chloride 103 (100-108) mmol/L Carbon Dioxide 36 H (21-32) mmol/L Anion Gap 8.3 (5.0-14.0) mmol/L BUN 26 H (7-18) mg/dL Creatinine 0.7 L (0.8-1.3) mg/dL Est Cr Clr Drug Dosing 94.15 mL/min Estimated GFR (MDRD) > 60 (>60) Glucose 90 (74-106) mg/dL Calcium 8.7 (8.5-10.1) mg/dL C-Reactive Protein 0.87 H (0.0-0.3) mg/dL Result Diagrams: 03/27/21 04:30 03/27/21 04:30 Sepsis Event Note - Evaluation Sepsis Screening Result: No Definite Risk - Focused Exam Vital Signs: Vital Signs Temp Pulse Pulse Resp BP BP Pulse Ox 03/27/21 11:11 98.0 F 73 18 121/44 L 97 03/27/21 08:47 89 137/54 L 03/27/21 08:43 137/54 L 03/27/21 07:00 98.9 F 77 18 129/68 92 L 03/27/21 02:45 163/61 H 03/27/21 02:17 98.1 F 80 18 126/36 L 97 *Q Meaningful Use (ADM) - VTE *Q VTE Pharmacological Contraindications *Q: Active Hemorrhage Orders Last 24hrs: Active Orders 24 hr Category Date Time Status PT Evaluation and Treatment [CONS] Routine Cons 03/26/21 14:13 Active Sodium Chloride 0.65% [Dent Nasal [place]] Med 03/27/21 08:54 Active 1 ml TREMAINE Q2H PRN Medication Orders Acetaminophen (Acetaminophen 325 Mg Tab) 650 mg PO Q4H PRN PRN Reason: Pain (Mild 1-3)/fever Atorvastatin Calcium (Atorvastatin 20 Mg Tab) 40 mg PO BEDTIME [facility] Admin: 03/26/21 20:01 Dose: 40 mg Documented by: Admin: 03/25/21 20:17 Dose: 40 mg Documented by: Admin: 03/24/21 20:21 Dose: 40 mg Documented by: Admin: 03/23/21 20:17 Dose: 40 mg Documented by: Admin: 03/22/21 21:12 Dose: 40 mg Documented by: Admin: 03/21/21 20:27 Dose: 40 mg Documented by: Admin: 03/20/21 20:27 Dose: 40 mg Documented by: Admin: 03/19/21 20:45 Dose: 40 mg Documented by: VERNON Cyproheptadine HCl (Cyproheptadine 4 Mg Tab) 4 mg PO BEDTIME [facility] Admin: 03/26/21 20:02 Dose: 4 mg Documented by: Admin: 03/25/21 20:17 Dose: 4 mg Documented by: Admin: 03/24/21 20:22 Dose: 4 mg Documented by: Admin: 03/23/21 20:17 Dose: 4 mg Documented by: Admin: 03/22/21 21:10 Dose: 4 mg Documented by: Admin: 03/21/21 20:27 Dose: 4 mg Documented by: Admin: 03/20/21 20:27 Dose: 4 mg Documented by: Admin: 03/19/21 20:53 Dose: 4 mg Documented by: VERNON Docusate Sodium (Docusate Sodium 100 Mg Cap) 100 mg PO DAILY [facility] Admin: 03/27/21 08:42 Dose: Not Given Documented by: Admin: 03/26/21 09:12 Dose: Not Given Documented by: Admin: 03/25/21 09:09 Dose: Not Given Documented by: Admin: 03/24/21 08:17 Dose: Not Given Documented by: Admin: 03/23/21 09:11 Dose: Not Given Documented by: Admin: 03/22/21 08:27 Dose: Not Given Documented by: Admin: 03/21/21 08:48 Dose: Not Given Documented by: Admin: 03/20/21 09:00 Dose: 100 mg Documented by: POOJA Duloxetine HCl (Duloxetine 30 Mg Cap) 30 mg PO BID [facility] Last Admin: 03/27/21 08:43 Dose: 30 mg Documented by: Admin: 03/26/21 20:01 Dose: 30 mg Documented by: Admin: 03/26/21 09:13 Dose: 30 mg Documented by: Admin: 03/25/21 20:17 Dose: 30 mg Documented by: Admin: 03/25/21 09:09 Dose: 30 mg Documented by: Admin: 03/24/21 20:22 Dose: 30 mg Documented by: Admin: 03/24/21 08:18 Dose: 30 mg Documented by: Admin: 03/23/21 20:19 Dose: 30 mg Documented by: Admin: 03/23/21 09:07 Dose: 30 mg Documented by: GERRY Cosigned by: FRANCISCO Admin: 03/22/21 21:09 Dose: 30 mg Documented by: Admin: 03/22/21 08:36 Dose: 30 mg Documented by: NARINDER Cosigned by: FRANCISCO Admin: 03/21/21 20:26 Dose: 30 mg Documented by: Admin: 03/21/21 08:48 Dose: 30 mg Documented by: Admin: 03/20/21 20:28 Dose: 30 mg Documented by: Admin: 03/20/21 09:00 Dose: 30 mg Documented by: Admin: 03/19/21 20:45 Dose: 30 mg Documented by: VERNON Enoxaparin Sodium (Enoxaparin 80 Mg/0.8 Ml Syringe) 80 mg SUBCUT Q12H [facility] Tio Admin: 03/27/21 09:25 Dose: 80 mg Documented by: Admin: 03/26/21 21:03 Dose: 80 mg Documented by: Admin: 03/26/21 09:14 Dose: 80 mg Documented by: Admin: 03/25/21 22:36 Dose: 80 mg Documented by: Admin: 03/25/21 09:09 Dose: 80 mg Documented by: Admin: 03/24/21 22:38 Dose: 80 mg Documented by: Admin: 03/24/21 10:34 Dose: 80 mg Documented by: Admin: 03/23/21 22:30 Dose: 80 mg Documented by: Admin: 03/23/21 11:04 Dose: 80 mg Documented by: GERRY Cosigned by: FRANCISCO Admin: 03/22/21 21:18 Dose: 80 mg Documented by: Admin: 03/22/21 10:22 Dose: 80 mg Documented by: NARINDER Cosigned by: POOJA Ferrous Sulfate (Ferrous Sulfate 325 Mg Tab) 325 mg PO BID [facility] Last Admin: 03/27/21 08:43 Dose: 325 mg Documented by: Admin: 03/26/21 20:02 Dose: 325 mg Documented by: Admin: 03/26/21 09:13 Dose: 325 mg Documented by: Admin: 03/25/21 20:17 Dose: 325 mg Documented by: Admin: 03/25/21 09:09 Dose: 325 mg Documented by: Admin: 03/24/21 20:21 Dose: 325 mg Documented by: Admin: 03/24/21 08:19 Dose: 325 mg Documented by: Admin: 03/23/21 20:18 Dose: 325 mg Documented by: Admin: 03/23/21 09:09 Dose: 325 mg Documented by: GERRY Cosigned by: FRANCISCO Admin: 03/22/21 21:10 Dose: 325 mg Documented by: Admin: 03/22/21 08:37 Dose: 325 mg Documented by: NARINDER Cosigned by: FRANCISCO Admin: 03/21/21 20:28 Dose: 325 mg Documented by: Admin: 03/21/21 08:48 Dose: 325 mg Documented by: Admin: 03/20/21 20:26 Dose: 325 mg Documented by: Admin: 03/20/21 09:00 Dose: 325 mg Documented by: Admin: 03/19/21 20:45 Dose: 325 mg Documented by: VERNON Gabapentin (Gabapentin 400 Mg Cap) 1,200 mg PO BID [facility] Admin: 03/27/21 08:43 Dose: 1,200 mg Documented by: Admin: 03/26/21 20:00 Dose: 1,200 mg Documented by: Admin: 03/26/21 09:13 Dose: 1,200 mg Documented by: Admin: 03/25/21 20:16 Dose: 1,200 mg Documented by: Admin: 03/25/21 09:09 Dose: 1,200 mg Documented by: Admin: 03/24/21 20:21 Dose: 1,200 mg Documented by: Admin: 03/24/21 08:19 Dose: 1,200 mg Documented by: Admin: 03/23/21 20:17 Dose: 1,200 mg Documented by: Admin: 03/23/21 09:11 Dose: 1,200 mg Documented by: GERRY Cosigned by: FRANCISCO Admin: 03/22/21 21:11 Dose: 1,200 mg Documented by: Admin: 03/22/21 08:37 Dose: 1,200 mg Documented by: NARINDER Cosigned by: FRANCISCO Admin: 03/21/21 20:26 Dose: 1,200 mg Documented by: Admin: 03/21/21 08:48 Dose: 1,200 mg Documented by: Admin: 03/20/21 20:25 Dose: 1,200 mg Documented by: Admin: 03/20/21 09:00 Dose: 1,200 mg Documented by: Admin: 03/19/21 20:45 Dose: 1,200 mg Documented by: VERNON Losartan Potassium (Losartan 50 Mg Tab) 50 mg PO DAILY [facility] Admin: 03/27/21 08:43 Dose: 50 mg Documented by: Admin: 03/26/21 09:13 Dose: 50 mg Documented by: Admin: 03/25/21 09:08 Dose: 50 mg Documented by: Admin: 03/24/21 08:26 Dose: 50 mg Documented by: Admin: 03/23/21 09:08 Dose: 50 mg Documented by: GERRY Cosigned by: FRANCISCO Admin: 03/22/21 08:36 Dose: 50 mg Documented by: NARINDER Cosigned by: FRANCISCO Admin: 03/21/21 08:48 Dose: 50 mg Documented by: Admin: 03/20/21 09:00 Dose: 50 mg Documented by: POOJA Metoprolol Succinate (Metoprolol Succinate 50 Mg Tab.Er) 50 mg PO QAM [facility] Admin: 03/27/21 08:47 Dose: 50 mg Documented by: Admin: 03/26/21 09:13 Dose: 50 mg Documented by: Admin: 03/25/21 09:07 Dose: 50 mg Documented by: Admin: 03/24/21 08:19 Dose: 50 mg Documented by: Admin: 03/23/21 09:09 Dose: 50 mg Documented by: GERRY Cosigned by: FRANCISCO Admin: 03/22/21 08:38 Dose: 50 mg Documented by: NARINDER Cosigned by: FRANCISCO Admin: 03/21/21 08:49 Dose: 50 mg Documented by: Admin: 03/20/21 09:01 Dose: 50 mg Documented by: POOJA Mirtazapine (Mirtazapine 15 Mg Tab) 30 mg PO BEDTIME [facility] Admin: 03/26/21 20:01 Dose: 30 mg Documented by: Admin: 03/25/21 20:18 Dose: 30 mg Documented by: Admin: 03/24/21 20:23 Dose: 30 mg Documented by: Admin: 03/23/21 20:18 Dose: 30 mg Documented by: Admin: 03/22/21 21:11 Dose: 30 mg Documented by: Admin: 03/21/21 20:27 Dose: 30 mg Documented by: Admin: 03/20/21 20:25 Dose: 30 mg Documented by: Admin: 03/19/21 20:45 Dose: 30 mg Documented by: VERNON Mometasone Furoate (Mometasone Furoate Hfa 200 Mcg/Puff 13 Gm Inhaler) 0 gm INH BIDRT [facility] Tio Admin: 03/27/21 07:14 Dose: 2 puff Documented by: Admin: 03/26/21 20:00 Dose: 2 puff Documented by: Admin: 03/26/21 07:08 Dose: 2 puff Documented by: Admin: 03/25/21 20:15 Dose: 2 puff Documented by: Admin: 03/25/21 07:17 Dose: 2 puff Documented by: Admin: 03/24/21 20:21 Dose: 2 puff Documented by: Admin: 03/24/21 07:45 Dose: 2 puff Documented by: Admin: 03/23/21 20:16 Dose: 2 puff Documented by: Admin: 03/23/21 07:15 Dose: 2 puff Documented by: Admin: 03/22/21 21:09 Dose: 2 puff Documented by: Admin: 03/22/21 07:18 Dose: 2 puff Documented by: Admin: 03/21/21 20:26 Dose: 2 puff Documented by: Admin: 03/21/21 07:39 Dose: 2 puff Documented by: Admin: 03/20/21 20:22 Dose: 2 puff Documented by: ANAYELI Ondansetron HCl (Ondansetron 4 Mg/2 Ml Sdv) 4 mg IV Q4H PRN PRN Reason: Nausea/Vomiting Oxybutynin Chloride (Oxybutynin 5 Mg Tab) 5 mg PO DAILY [facility] Tio Admin: 03/27/21 08:43 Dose: 5 mg Documented by: Admin: 03/26/21 09:13 Dose: 5 mg Documented by: Admin: 03/25/21 09:08 Dose: 5 mg Documented by: Admin: 03/24/21 08:19 Dose: 5 mg Documented by: Admin: 03/23/21 09:10 Dose: 5 mg Documented by: GERRY Cosigned by: FRANCISCO Admin: 03/22/21 08:38 Dose: 5 mg Documented by: NARINDER Cosigned by: FRANCISCO Admin: 03/21/21 08:48 Dose: 5 mg Documented by: Admin: 03/20/21 09:00 Dose: 5 mg Documented by: POOJA Pantoprazole Sodium (Pantoprazole 40 Mg Tab.Cr) 40 mg PO BIDAC [facility] Last Admin: 03/27/21 07:45 Dose: 40 mg Documented by: Admin: 03/26/21 16:10 Dose: 40 mg Documented by: Admin: 03/26/21 08:05 Dose: 40 mg Documented by: Admin: 03/25/21 17:43 Dose: 40 mg Documented by: Admin: 03/25/21 09:08 Dose: 40 mg Documented by: Admin: 03/24/21 16:39 Dose: 40 mg Documented by: Admin: 03/24/21 08:16 Dose: 40 mg Documented by: Admin: 03/23/21 20:18 Dose: 40 mg Documented by: NEERU Polyethylene Glycol (Polyethylene Glycol 3350 Powder 17 Gm Packet) 17 gm PO DAILY PRN PRN Reason: Constipation Prednisone (Prednisone 20 Mg Tab) 20 mg PO WITHBREAKFAST [facility] Last Admin: 03/27/21 07:45 Dose: 20 mg Documented by: Admin: 03/26/21 08:05 Dose: 20 mg Documented by: Admin: 03/25/21 09:08 Dose: 20 mg Documented by: SHREE Sodium Chloride (Sodium Chloride 0.9% 10 Ml Syringe) 10 ml FLUSH ASDIRECTED PRN PRN Reason: Keep Vein Open Sodium Chloride (Aloe Vera/Sodium Chloride Gel 14.1 Gm Tube) 0 gm TREMAINE Q2H PRN PRN Reason: Other Last Admin: 03/27/21 08:47 Dose: 1 applic Documented by: POOJA Sodium Chloride (Sodium Chloride 0.65% Nasal [place] 45 Ml Bottle) 1 ml TREMAINE Q2H PRN PRN Reason: Nasal Dryness Last Admin: 03/27/21 09:25 Dose: 1 applic Documented by: POOJA Tamsulosin HCl (Tamsulosin 0.4 Mg Cap.Er) 0.4 mg PO BEDTIME [facility] Last Admin: 03/26/21 20:01 Dose: 0.4 mg Documented by: Admin: 03/25/21 20:17 Dose: 0.4 mg Documented by: Admin: 03/24/21 20:22 Dose: 0.4 mg Documented by: Admin: 03/23/21 20:18 Dose: 0.4 mg Documented by: Admin: 03/22/21 21:10 Dose: 0.4 mg Documented by: Admin: 03/21/21 20:27 Dose: 0.4 mg Documented by: RICARDO Thiamine HCl (Thiamine 100 Mg Tab) 100 mg PO DAILY [facility] Admin: 03/27/21 08:43 Dose: 100 mg Documented by: Admin: 03/26/21 09:13 Dose: 100 mg Documented by: Admin: 03/25/21 09:08 Dose: 100 mg Documented by: Admin: 03/24/21 08:18 Dose: 100 mg Documented by: Admin: 03/23/21 09:09 Dose: 100 mg Documented by: GERRY Cosigned by: FRANCISCO Admin: 03/22/21 08:40 Dose: 100 mg Documented by: NARINDER Cosigned by: FRANCISCO Admin: 03/21/21 08:48 Dose: 100 mg Documented by: Admin: 03/20/21 09:00 Dose: 100 mg Documented by: POOJA Assessment/Plan Comment:: ASSESSMENT AND PLAN - ACUTE ON SUBACUTE HYPOXIC RESPIRATORY FAILURE-secondary to recent Covid pneumonia, bilateral pulmonary emboli, and probable acute bacterial pneumonia. CT scan obtained in [place] showed no evidence of new pulmonary emboli. Decreasing supplemental oxygen needs at rest but still quite hypoxic with any activity. -Continue supplemental oxygen -Continuous pulse oximetry -Begin prednisone taper 20 mg daily, today is day 3 of 4 BACTERIAL PNEUMONIA-most likely cause of significant worsening of shortness of breath and hypoxia. Clinically improving. He has completed antibiotic therapy. PROBABLE GI BLEED-significant drop in hemoglobin noted associated with symptoms of weakness and lightheadedness. Hemoglobin stable the past couple of days. -Recheck hemoglobin this afternoon and in a.m. -Protonix 40 mg po every 12 hours -Hold on endoscopy until respiratory status has stabilized ACUTE BLOOD LOSS ANEMIA-hemoglobin has been stable with no evidence for bleeding. -Management as above BILATERAL PULMONARY EMBOLI-associated with recent COVID-19 infection and pneumonia. -Lovenox 80 mg subcu every 12 hours, plan to continue until after endoscopy -Transition to Eliquis after endoscopy URINARY RETENTION-doing well since Aquino catheter was removed. -Flomax 0.4 mg p.o. daily MAINTENANCE ISSUES -DVT prophylaxis; Lovenox as above -GI prophylaxis; Protonix as above -Aquino catheter; removed -Nutrition; regular diet DISPOSITION-anticipate discharge to home after the hospital stay. Agapito Salazar MD
--- NOTE | 2021-03-27 14:21 | PCM.DCSUM1 ---
Discharge Summary - Discharge Data Discharge Disposition: Home, Self-Care 01 Condition: Good - Referral to Home Health Primary Care Physician: PCP Unknown - Patient Summary/Data Consults: Consultations 03/26/21 14:13 PT Evaluation and Treatment [CONS] Routine Please Evaluate and Treat. PT Reason for Consult: Strengthening This query below is only for informational purposes and is not editable. Admission Diagnosis/Problem: Hypoxia - Discharge Plan Home Medications: Home Meds Cyproheptadine HCl 4 mg PO BEDTIME 03/19/21 [History] DULoxetine HCl [Cymbalta] 30 mg PO BID 03/19/21 [History] Docusate Sodium 100 mg PO DAILY 03/19/21 [History] Ferrous Sulfate 325 mg PO BID 03/19/21 [History] Gabapentin [Neurontin] 1,200 mg PO BID 03/19/21 [History] Losartan Potassium 50 mg PO DAILY 03/19/21 [History] Metoprolol Succinate 50 mg PO QAM 03/19/21 [History] Mirtazapine 30 mg PO BEDTIME 03/19/21 [History] Multivitamin 1 tab PO DAILY 03/19/21 [History] Oxybutynin 5 mg PO DAILY 03/19/21 [History] Sennosides/Docusate Sodium [Senna-Docusate Sodium Tablet] 1 - 2 tab PO BID 03/19/21 [History] Thiamine [Vitamin B-1] 100 mg PO DAILY 03/19/21 [History] atorvaSTATin [Lipitor] 40 mg PO BEDTIME 03/19/21 [History] Mometasone Furoate 200mcg [Asmanex HFA 200mcg] 2 puff PO BID 03/20/21 [History] Tiotropium Br/Olodaterol HCl [Stiolto Respimat Inhal [place]] 2 inhalation PO DAILY 03/20/21 [History] Patient Handouts: Hypoxia, Fall Prevention in the Home, Adult, [id number], Pulmonary Embolism - Patient Data Vitals - Most Recent: Last Vital Signs Temp 98.0 F 03/27/21 11:11 Pulse 73 03/27/21 11:11 Resp 18 03/27/21 11:11 BP 121/44 L 03/27/21 11:11 Pulse Ox 97 03/27/21 11:11 Weight - Most Recent: 192 lb 3.2 oz I&O - Last 24 hours: Intake & Output 03/26/21 03/27/21 03/27/21 22:59 06:59 14:59 Intake Total 1400 1020 240 Output Total 2150 1500 1950 Balance -333 -636 -7784 Lab Results - Last 24 hrs: Laboratory Results - last 24 hr 03/27/21 03/27/21 03/27/21 Range/Units 04:30 04:30 04:30 Hgb 8.2 L (12.0-15.0) g/dL D-Dimer, Quantitative 781.38 H (0.0-500.0) ng/mL Sodium 143 (140-148) mmol/L Potassium 4.3 (3.6-5.2) mmol/L Chloride 103 (100-108) mmol/L Carbon Dioxide 36 H (21-32) mmol/L Anion Gap 8.3 (5.0-14.0) mmol/L BUN 26 H (7-18) mg/dL Creatinine 0.7 L (0.8-1.3) mg/dL Est Cr Clr Drug Dosing 94.15 mL/min Estimated GFR (MDRD) > 60 (>60) Glucose 90 (74-106) mg/dL Calcium 8.7 (8.5-10.1) mg/dL C-Reactive Protein 0.87 H (0.0-0.3) mg/dL Med Orders - Current: Current Medications Acetaminophen (Acetaminophen 325 Mg Tab) 650 mg PO Q4H PRN PRN Reason: Pain (Mild 1-3)/fever Atorvastatin Calcium (Atorvastatin 20 Mg Tab) 40 mg PO BEDTIME [facility] Last Admin: 03/26/21 20:01 Dose: 40 mg Documented by: Cyproheptadine HCl (Cyproheptadine 4 Mg Tab) 4 mg PO BEDTIME [facility] Last Admin: 03/26/21 20:02 Dose: 4 mg Documented by: Docusate Sodium (Docusate Sodium 100 Mg Cap) 100 mg PO DAILY [facility] Last Admin: 03/27/21 08:42 Dose: Not Given Documented by: Duloxetine HCl (Duloxetine 30 Mg Cap) 30 mg PO BID [facility] Last Admin: 03/27/21 08:43 Dose: 30 mg Documented by: Enoxaparin Sodium (Enoxaparin 80 Mg/0.8 Ml Syringe) 80 mg SUBCUT Q12H [facility] Last Admin: 03/27/21 09:25 Dose: 80 mg Documented by: Ferrous Sulfate (Ferrous Sulfate 325 Mg Tab) 325 mg PO BID [facility] Last Admin: 03/27/21 08:43 Dose: 325 mg Documented by: Gabapentin (Gabapentin 400 Mg Cap) 1,200 mg PO BID [facility] Last Admin: 03/27/21 08:43 Dose: 1,200 mg Documented by: Losartan Potassium (Losartan 50 Mg Tab) 50 mg PO DAILY [facility] Last Admin: 03/27/21 08:43 Dose: 50 mg Documented by: Metoprolol Succinate (Metoprolol Succinate 50 Mg Tab.Er) 50 mg PO QAM [facility] Last Admin: 03/27/21 08:47 Dose: 50 mg Documented by: Mirtazapine (Mirtazapine 15 Mg Tab) 30 mg PO BEDTIME [facility] Last Admin: 03/26/21 20:01 Dose: 30 mg Documented by: Mometasone Furoate (Mometasone Furoate Hfa 200 Mcg/Puff 13 Gm Inhaler) 0 gm INH BIDRT [facility] Last Admin: 03/27/21 07:14 Dose: 2 puff Documented by: Ondansetron HCl (Ondansetron 4 Mg/2 Ml Sdv) 4 mg IV Q4H PRN PRN Reason: Nausea/Vomiting Oxybutynin Chloride (Oxybutynin 5 Mg Tab) 5 mg PO DAILY [facility] Last Admin: 03/27/21 08:43 Dose: 5 mg Documented by: Pantoprazole Sodium (Pantoprazole 40 Mg Tab.Cr) 40 mg PO BIDAC [facility] Last Admin: 03/27/21 07:45 Dose: 40 mg Documented by: Polyethylene Glycol (Polyethylene Glycol 3350 Powder 17 Gm Packet) 17 gm PO DAILY PRN PRN Reason: Constipation Prednisone (Prednisone 20 Mg Tab) 20 mg PO WITHBREAKFAST [facility] Last Admin: 03/27/21 07:45 Dose: 20 mg Documented by: Sodium Chloride (Sodium Chloride 0.9% 10 Ml Syringe) 10 ml FLUSH ASDIRECTED PRN PRN Reason: Keep Vein Open Sodium Chloride (Aloe Vera/Sodium Chloride Gel 14.1 Gm Tube) 0 gm TREMAINE Q2H PRN PRN Reason: Other Last Admin: 03/27/21 08:47 Dose: 1 applic Documented by: Sodium Chloride (Sodium Chloride 0.65% Nasal [place] 45 Ml Bottle) 1 ml TREMAINE Q2H PRN PRN Reason: Nasal Dryness Last Admin: 03/27/21 09:25 Dose: 1 applic Documented by: Tamsulosin HCl (Tamsulosin 0.4 Mg Cap.Er) 0.4 mg PO BEDTIME [facility] Last Admin: 03/26/21 20:01 Dose: 0.4 mg Documented by: Thiamine HCl (Thiamine 100 Mg Tab) 100 mg PO DAILY [facility] Last Admin: 03/27/21 08:43 Dose: 100 mg Documented by: Discontinued Medications Enoxaparin Sodium (Enoxaparin 80 Mg/0.8 Ml Syringe) 80 mg SUBCUT Q12H [facility] Last Admin: 03/20/21 09:00 Dose: 80 mg Documented by: Meropenem 1 gm/ Sodium (Chloride) 100 mls @ 200 mls/hr IV Q8H [facility] Stop: 03/25/21 08:00 Last Admin: 03/25/21 04:21 Dose: 200 mls/hr Documented by: Vancomycin HCl 1.25 gm/ Sodium (Chloride) 250 mls @ 166.667 mls/hr IV Q12H [facility] Last Admin: 03/21/21 09:41 Dose: 166.667 mls/hr Documented by: Vancomycin HCl 1.5 gm/ Sodium (Chloride) 250 mls @ 166.667 mls/hr IV Q12H [facility] Last Admin: 03/22/21 21:08 Dose: 166.667 mls/hr Documented by: Vancomycin HCl 1.75 gm/ Sodium (Chloride) 250 mls @ 166.667 mls/hr IV Q12H [facility] Stop: 03/25/21 08:00 Last Admin: 03/24/21 22:38 Dose: 166.667 mls/hr Documented by: Methylprednisolone Sodium Succinate (Methylprednisolone Sodium Succinate 40 Mg/1 Ml Sdv) 40 mg IVPUSH Q8H [facility] Last Admin: 03/20/21 03:35 Dose: 40 mg Documented by: Methylprednisolone Sodium Succinate (Methylprednisolone Sodium Succinate 40 Mg/1 Ml Sdv) 40 mg IVPUSH Q8H [facility] Last Admin: 03/23/21 13:11 Dose: 40 mg Documented by: Methylprednisolone Sodium Succinate (Methylprednisolone Sodium Succinate 40 Mg/1 Ml Sdv) 40 mg IVPUSH Q24H [facility] Last Admin: 03/24/21 08:20 Dose: 40 mg Documented by: Pantoprazole Sodium (Pantoprazole 40 Mg Vial) 40 mg IV Q12H [facility] Last Admin: 03/23/21 09:20 Dose: 40 mg Documented by: Vancomycin HCl (Vancomycin 1 Gm Sdv) 1 gm IV .PHARMACY TO DOSE DELMI Stop: 03/20/21 08:00 *Q Meaningful Use (DIS) - VTE *Q VTE Pharmacological Contraindications *Q: Active Hemorrhage
[2021-03-27] MEDS: Tamsulosin 0.4 MG Cap.ER PO SCH (21:17)
[2021-03-27] MEDS: Cyproheptadine 4 MG Tab PO SCH (21:17)
[2021-03-27] MEDS: atorvaSTATin 20 MG Tab PO SCH (21:17)
[2021-03-27] MEDS: Mirtazapine 15 MG Tab PO SCH (21:18)
[2021-03-28] MEDS: Mometasone Furoate HFA 200 mcg/Puff 13 GM Inhaler INH SCH ×2 (07:30→20:59)
[2021-03-28] MEDS: Tiotropium BR/Olodaterol HCL 4 GM Inhalation Spray 2.5mcg/1 dose; 10 doses INH SCH (07:30)
--- NOTE | 2021-03-28 07:41 | PN ---
DATE OF SERVICE: 03/28/2021 Per nursing report, O2 which just turned down from 4 L to 3 L. He still desats with activity. Labs, hemoglobin has been stable at 8.2. Per Dr. Beacuhamp, Surgery Department will sign off unless there is further indication for an EGD to evaluate GI bleed. Candice Xiao PA-C /[id number]
[2021-03-28] MEDS: Gabapentin 400 MG Cap PO SCH ×2 (08:30→21:02)
[2021-03-28] MEDS: Thiamine 100 MG Tab PO SCH (08:31)
[2021-03-28] MEDS: Pantoprazole 40 MG Tab.CR PO SCH ×2 (08:31→15:36)
[2021-03-28] MEDS: predniSONE 10 MG Tab PO SCH (08:31)
[2021-03-28] MEDS: DULoxetine 30 MG Cap PO SCH ×2 (08:31→21:02)
[2021-03-28] MEDS: Ferrous Sulfate 325 MG Tab PO SCH ×2 (08:31→21:02)
[2021-03-28] MEDS: Oxybutynin 5 MG Tab PO SCH (08:31)
[2021-03-28] MEDS: Losartan 50 MG Tab PO SCH (08:31)
[2021-03-28] MEDS: Docusate Sodium 100 MG Cap PO SCH (08:32)
[2021-03-28] MEDS: Metoprolol Succinate 50 MG Tab.ER PO SCH (08:32)
[2021-03-28] MEDS: Enoxaparin 80 MG/0.8 ML Syringe SUBCUT SCH (10:55)
--- NOTE | 2021-03-28 14:58 | PCM.PN ---
- General Info Date of Service: 03/28/21 Subjective Update: No acute events overnight. No significant changes in the past 24 hours. He continues to feel good. No issues when he is at rest. He does continue to desaturate significantly with any activity though he is rebounding a little faster each day. No chest pain. No fevers. Appetite is good. Functional Status: Reports: Pain Controlled, Tolerating Diet - Review of Systems Pulmonary: Denies: Shortness of Breath - Patient Data Vitals - Most Recent: Last Vital Signs Temp 36.1 C 03/28/21 11:00 Pulse 79 03/28/21 11:00 Resp 16 03/28/21 11:00 BP 124/50 L 03/28/21 11:00 Pulse Ox 94 L 03/28/21 11:00 Weight - Most Recent: 87.18 kg I&O - Last 24 Hours: Intake & Output 03/27/21 03/28/21 03/28/21 22:59 06:59 14:59 Intake Total 1280 2140 Output Total 1400 2100 500 Balance -120 -2100 1640 Med Orders - Current: Current Medications Acetaminophen (Acetaminophen 325 Mg Tab) 650 mg PO Q4H PRN PRN Reason: Pain (Mild 1-3)/fever Atorvastatin Calcium (Atorvastatin 20 Mg Tab) 40 mg PO BEDTIME [facility] Last Admin: 03/27/21 21:17 Dose: 40 mg Documented by: Cyproheptadine HCl (Cyproheptadine 4 Mg Tab) 4 mg PO BEDTIME [facility] Last Admin: 03/27/21 21:17 Dose: 4 mg Documented by: Docusate Sodium (Docusate Sodium 100 Mg Cap) 100 mg PO DAILY [facility] Last Admin: 03/28/21 08:32 Dose: Not Given Documented by: Duloxetine HCl (Duloxetine 30 Mg Cap) 30 mg PO BID [facility] Last Admin: 03/28/21 08:31 Dose: 30 mg Documented by: Enoxaparin Sodium (Enoxaparin 80 Mg/0.8 Ml Syringe) 80 mg SUBCUT Q12H [facility] Last Admin: 03/28/21 10:55 Dose: 80 mg Documented by: Ferrous Sulfate (Ferrous Sulfate 325 Mg Tab) 325 mg PO BID [facility] Last Admin: 03/28/21 08:31 Dose: 325 mg Documented by: Gabapentin (Gabapentin 400 Mg Cap) 1,200 mg PO BID [facility] Last Admin: 03/28/21 08:30 Dose: 1,200 mg Documented by: Losartan Potassium (Losartan 50 Mg Tab) 50 mg PO DAILY [facility] Last Admin: 03/28/21 08:31 Dose: 50 mg Documented by: Metoprolol Succinate (Metoprolol Succinate 50 Mg Tab.Er) 50 mg PO QAM [facility] Last Admin: 03/28/21 08:32 Dose: 50 mg Documented by: Mirtazapine (Mirtazapine 15 Mg Tab) 30 mg PO BEDTIME [facility] Last Admin: 03/27/21 21:18 Dose: 30 mg Documented by: Mometasone Furoate (Mometasone Furoate Hfa 200 Mcg/Puff 13 Gm Inhaler) 0 gm INH BIDRT [facility] Last Admin: 03/28/21 07:30 Dose: 2 puff Documented by: Ondansetron HCl (Ondansetron 4 Mg/2 Ml Sdv) 4 mg IV Q4H PRN PRN Reason: Nausea/Vomiting Oxybutynin Chloride (Oxybutynin 5 Mg Tab) 5 mg PO DAILY [facility] Last Admin: 03/28/21 08:31 Dose: 5 mg Documented by: Pantoprazole Sodium (Pantoprazole 40 Mg Tab.Cr) 40 mg PO BIDAC [facility] Last Admin: 03/28/21 08:31 Dose: 40 mg Documented by: Polyethylene Glycol (Polyethylene Glycol 3350 Powder 17 Gm Packet) 17 gm PO DAILY PRN PRN Reason: Constipation Prednisone (Prednisone 10 Mg Tab) 10 mg PO WITHBREAKFAST [facility] Last Admin: 03/28/21 08:31 Dose: 10 mg Documented by: Sodium Chloride (Sodium Chloride 0.9% 10 Ml Syringe) 10 ml FLUSH ASDIRECTED PRN PRN Reason: Keep Vein Open Sodium Chloride (Aloe Vera/Sodium Chloride Gel 14.1 Gm Tube) 0 gm TREMAINE Q2H PRN PRN Reason: Other Last Admin: 03/27/21 08:47 Dose: 1 applic Documented by: Sodium Chloride (Sodium Chloride 0.65% Nasal [place] 45 Ml Bottle) 1 ml TREMAINE Q2H PRN PRN Reason: Nasal Dryness Last Admin: 03/27/21 09:25 Dose: 1 applic Documented by: Tamsulosin HCl (Tamsulosin 0.4 Mg Cap.Er) 0.4 mg PO BEDTIME [facility] Last Admin: 03/27/21 21:17 Dose: 0.4 mg Documented by: Thiamine HCl (Thiamine 100 Mg Tab) 100 mg PO DAILY [facility] Last Admin: 03/28/21 08:31 Dose: 100 mg Documented by: Discontinued Medications Enoxaparin Sodium (Enoxaparin 80 Mg/0.8 Ml Syringe) 80 mg SUBCUT Q12H [facility] Last Admin: 03/20/21 09:00 Dose: 80 mg Documented by: Meropenem 1 gm/ Sodium (Chloride) 100 mls @ 200 mls/hr IV Q8H [facility] Stop: 03/25/21 08:00 Last Admin: 03/25/21 04:21 Dose: 200 mls/hr Documented by: Vancomycin HCl 1.25 gm/ Sodium (Chloride) 250 mls @ 166.667 mls/hr IV Q12H [facility] Last Admin: 03/21/21 09:41 Dose: 166.667 mls/hr Documented by: Vancomycin HCl 1.5 gm/ Sodium (Chloride) 250 mls @ 166.667 mls/hr IV Q12H [facility] Last Admin: 03/22/21 21:08 Dose: 166.667 mls/hr Documented by: Vancomycin HCl 1.75 gm/ Sodium (Chloride) 250 mls @ 166.667 mls/hr IV Q12H [facility] Stop: 03/25/21 08:00 Last Admin: 03/24/21 22:38 Dose: 166.667 mls/hr Documented by: Methylprednisolone Sodium Succinate (Methylprednisolone Sodium Succinate 40 Mg/1 Ml Sdv) 40 mg IVPUSH Q8H [facility] Last Admin: 03/20/21 03:35 Dose: 40 mg Documented by: Methylprednisolone Sodium Succinate (Methylprednisolone Sodium Succinate 40 Mg/1 Ml Sdv) 40 mg IVPUSH Q8H [facility] Last Admin: 03/23/21 13:11 Dose: 40 mg Documented by: Methylprednisolone Sodium Succinate (Methylprednisolone Sodium Succinate 40 Mg/1 Ml Sdv) 40 mg IVPUSH Q24H [facility] Last Admin: 03/24/21 08:20 Dose: 40 mg Documented by: Pantoprazole Sodium (Pantoprazole 40 Mg Vial) 40 mg IV Q12H [facility] Last Admin: 03/23/21 09:20 Dose: 40 mg Documented by: Prednisone (Prednisone 20 Mg Tab) 20 mg PO WITHBREAKFAST [facility] Last Admin: 03/27/21 07:45 Dose: 20 mg Documented by: Vancomycin HCl (Vancomycin 1 Gm Sdv) 1 gm IV .PHARMACY TO DOSE DELMI Stop: 03/20/21 08:00 - Exam Quality Assessment: Supplemental Oxygen General: Alert, Oriented, Cooperative, No Acute Distress Lungs: Normal Respiratory Effort GI/Abdominal Exam: Soft, No Distention Extremities: No Pedal Edema Skin: Warm, Dry Psy/Mental Status: Alert, Normal Affect - Patient Data Result Diagrams: 03/27/21 04:30 03/27/21 04:30 Sepsis Event Note - Evaluation Sepsis Screening Result: No Definite Risk - Focused Exam Vital Signs: Vital Signs Temp Pulse Pulse Resp BP BP Pulse Ox 03/28/21 11:00 36.1 C 79 16 124/50 L 94 L 03/28/21 08:33 03/28/21 08:32 89 134/59 L 03/28/21 08:31 134/59 L 03/28/21 07:00 36.1 C 89 16 134/59 L 90 L 03/28/21 04:50 72 97 Pulse Ox 03/28/21 11:00 03/28/21 08:33 90 L 03/28/21 08:32 03/28/21 08:31 03/28/21 07:00 03/28/21 04:50 - Problem List Review Problem List Initiated/Reviewed/Updated: Yes - My Orders Last 24 Hours: My Active Orders 03/28/21 08:00 predniSONE 10 mg PO WITHBREAKFAST 03/29/21 05:00 CRP [C-REACTIVE PROTEIN] [CHEM] Timed HGB [HEMOGLOBIN] [HEME] Timed - Plan Plan:: ASSESSMENT AND PLAN - ACUTE ON SUBACUTE HYPOXIC RESPIRATORY FAILURE-secondary to recent Covid pneumonia, bilateral pulmonary emboli, and probable acute bacterial pneumonia. Stable to slightly improved supplemental oxygen needs at rest but still quite hypoxic with any activity. -Continue supplemental oxygen -Continuous pulse oximetry -prednisone taper 10 mg daily, today is day 1 of 4 BACTERIAL PNEUMONIA-most likely cause of acute worsening of shortness of breath and hypoxia. Clinically improving. He has completed antibiotic therapy. PROBABLE GI BLEED-significant drop in hemoglobin noted associated with symptoms of weakness and lightheadedness. Hemoglobin stable the past several days with no evidence for bleeding. -Recheck hemoglobin in a.m. -Protonix 40 mg po every 12 hours -Hold on endoscopy unless he has further drop in his hemoglobin ACUTE BLOOD LOSS ANEMIA-hemoglobin has been stable with no evidence for bleeding. -Management as above BILATERAL PULMONARY EMBOLI-associated with recent COVID-19 infection and pneumonia. -Transition to apixaban tonight URINARY RETENTION-doing well since Aquino catheter was removed. -Flomax 0.4 mg p.o. daily MAINTENANCE ISSUES -DVT prophylaxis; apixaban -GI prophylaxis; Protonix as above -Nutrition; regular diet DISPOSITION-anticipate discharge to home with home oxygen and possibly home care after the hospital stay. Agapito Salazar MD
[2021-03-28] MEDS: Tamsulosin 0.4 MG Cap.ER PO SCH (21:01)
[2021-03-28] MEDS: atorvaSTATin 20 MG Tab PO SCH (21:02)
[2021-03-28] MEDS: Apixaban 5 MG Tab PO SCH (21:02)
[2021-03-28] MEDS: Cyproheptadine 4 MG Tab PO SCH (21:02)
[2021-03-28] MEDS: Mirtazapine 15 MG Tab PO SCH (21:03)
[2021-03-29] MEDS: Mometasone Furoate HFA 200 mcg/Puff 13 GM Inhaler INH SCH ×2 (07:12→20:30)
[2021-03-29] MEDS: Tiotropium BR/Olodaterol HCL 4 GM Inhalation Spray 2.5mcg/1 dose; 10 doses INH SCH (07:13)
[2021-03-29] MEDS: Pantoprazole 40 MG Tab.CR PO SCH ×2 (07:35→16:52)
[2021-03-29] MEDS: predniSONE 10 MG Tab PO SCH (07:35)
[2021-03-29] MEDS: Thiamine 100 MG Tab PO SCH (10:12)
[2021-03-29] MEDS: Ferrous Sulfate 325 MG Tab PO SCH ×2 (10:12→20:31)
[2021-03-29] MEDS: Gabapentin 400 MG Cap PO SCH ×2 (10:12→20:31)
[2021-03-29] MEDS: Oxybutynin 5 MG Tab PO SCH (10:13)
[2021-03-29] MEDS: Docusate Sodium 100 MG Cap PO SCH (10:13)
[2021-03-29] MEDS: Losartan 50 MG Tab PO SCH (10:13)
[2021-03-29] MEDS: DULoxetine 30 MG Cap PO SCH ×2 (10:13→20:33)
[2021-03-29] MEDS: Metoprolol Succinate 50 MG Tab.ER PO SCH (10:14)
[2021-03-29] MEDS: Apixaban 5 MG Tab PO SCH ×2 (10:14→20:31)
--- NOTE | 2021-03-29 14:35 | PCM.PN ---
- General Info Date of Service: 03/29/21 Subjective Update: No acute events overnight. Patient feels well. Respiratory status stable on 3 L at rest but continues to desaturate with activity. This seems to be improving compared to yesterday but still has significant desaturations with walking. No fevers. Feeling well. Hemoglobin improving. Inflammatory markers low. Functional Status: Reports: Pain Controlled, Tolerating Diet - Patient Data Vitals - Most Recent: Last Vital Signs Temp 36.9 C 03/29/21 12:53 Pulse 80 03/29/21 12:53 Resp 18 03/29/21 12:53 BP 115/56 L 03/29/21 12:53 Pulse Ox 90 L 03/29/21 12:53 Weight - Most Recent: 87.18 kg I&O - Last 24 Hours: Intake & Output 03/28/21 03/29/21 03/29/21 22:59 06:59 14:59 Intake Total 1500 375 Output Total 950 2075 1300 Balance 550 -1700 -1300 Lab Results Last 24 Hours: Laboratory Results - last 24 hr 03/29/21 03/29/21 Range/Units 04:29 04:29 Hgb 8.7 L (12.0-15.0) g/dL C-Reactive Protein 0.60 H (0.0-0.3) mg/dL Med Orders - Current: Current Medications Acetaminophen (Acetaminophen 325 Mg Tab) 650 mg PO Q4H PRN PRN Reason: Pain (Mild 1-3)/fever Apixaban (Apixaban 5 Mg Tab) 5 mg PO BID [facility] Last Admin: 03/29/21 10:14 Dose: 5 mg Documented by: Atorvastatin Calcium (Atorvastatin 20 Mg Tab) 40 mg PO BEDTIME [facility] Last Admin: 03/28/21 21:02 Dose: 40 mg Documented by: Cyproheptadine HCl (Cyproheptadine 4 Mg Tab) 4 mg PO BEDTIME [facility] Last Admin: 03/28/21 21:02 Dose: 4 mg Documented by: Docusate Sodium (Docusate Sodium 100 Mg Cap) 100 mg PO DAILY [facility] Last Admin: 03/29/21 10:13 Dose: 100 mg Documented by: Duloxetine HCl (Duloxetine 30 Mg Cap) 30 mg PO BID [facility] Last Admin: 03/29/21 10:13 Dose: 30 mg Documented by: Ferrous Sulfate (Ferrous Sulfate 325 Mg Tab) 325 mg PO BID [facility] Last Admin: 03/29/21 10:12 Dose: 325 mg Documented by: Gabapentin (Gabapentin 400 Mg Cap) 1,200 mg PO BID [facility] Last Admin: 03/29/21 10:12 Dose: 1,200 mg Documented by: Losartan Potassium (Losartan 50 Mg Tab) 50 mg PO DAILY [facility] Last Admin: 03/29/21 10:13 Dose: 50 mg Documented by: Metoprolol Succinate (Metoprolol Succinate 50 Mg Tab.Er) 50 mg PO QAM [facility] Last Admin: 03/29/21 10:14 Dose: 50 mg Documented by: Mirtazapine (Mirtazapine 15 Mg Tab) 30 mg PO BEDTIME [facility] Last Admin: 03/28/21 21:03 Dose: 30 mg Documented by: Mometasone Furoate (Mometasone Furoate Hfa 200 Mcg/Puff 13 Gm Inhaler) 0 gm INH BIDRT [facility] Last Admin: 03/29/21 07:12 Dose: 2 puff Documented by: Ondansetron HCl (Ondansetron 4 Mg/2 Ml Sdv) 4 mg IV Q4H PRN PRN Reason: Nausea/Vomiting Oxybutynin Chloride (Oxybutynin 5 Mg Tab) 5 mg PO DAILY [facility] Last Admin: 03/29/21 10:13 Dose: 5 mg Documented by: Pantoprazole Sodium (Pantoprazole 40 Mg Tab.Cr) 40 mg PO BIDAC [facility] Last Admin: 03/29/21 07:35 Dose: 40 mg Documented by: Polyethylene Glycol (Polyethylene Glycol 3350 Powder 17 Gm Packet) 17 gm PO DAILY PRN PRN Reason: Constipation Prednisone (Prednisone 10 Mg Tab) 10 mg PO WITHBREAKFAST [facility] Last Admin: 03/29/21 07:35 Dose: 10 mg Documented by: Sodium Chloride (Sodium Chloride 0.9% 10 Ml Syringe) 10 ml FLUSH ASDIRECTED PRN PRN Reason: Keep Vein Open Sodium Chloride (Aloe Vera/Sodium Chloride Gel 14.1 Gm Tube) 0 gm TREMAINE Q2H PRN PRN Reason: Other Last Admin: 03/27/21 08:47 Dose: 1 applic Documented by: Sodium Chloride (Sodium Chloride 0.65% Nasal [place] 45 Ml Bottle) 1 ml TREMAINE Q2H PRN PRN Reason: Nasal Dryness Last Admin: 03/27/21 09:25 Dose: 1 applic Documented by: Tamsulosin HCl (Tamsulosin 0.4 Mg Cap.Er) 0.4 mg PO BEDTIME [facility] Last Admin: 03/28/21 21:01 Dose: 0.4 mg Documented by: Thiamine HCl (Thiamine 100 Mg Tab) 100 mg PO DAILY [facility] Last Admin: 03/29/21 10:12 Dose: 100 mg Documented by: Discontinued Medications Enoxaparin Sodium (Enoxaparin 80 Mg/0.8 Ml Syringe) 80 mg SUBCUT Q12H [facility] Last Admin: 03/20/21 09:00 Dose: 80 mg Documented by: Enoxaparin Sodium (Enoxaparin 80 Mg/0.8 Ml Syringe) 80 mg SUBCUT Q12H [facility] Last Admin: 03/28/21 10:55 Dose: 80 mg Documented by: Meropenem 1 gm/ Sodium (Chloride) 100 mls @ 200 mls/hr IV Q8H [facility] Stop: 03/25/21 08:00 Last Admin: 03/25/21 04:21 Dose: 200 mls/hr Documented by: Vancomycin HCl 1.25 gm/ Sodium (Chloride) 250 mls @ 166.667 mls/hr IV Q12H [facility] Last Admin: 03/21/21 09:41 Dose: 166.667 mls/hr Documented by: Vancomycin HCl 1.5 gm/ Sodium (Chloride) 250 mls @ 166.667 mls/hr IV Q12H [facility] Last Admin: 03/22/21 21:08 Dose: 166.667 mls/hr Documented by: Vancomycin HCl 1.75 gm/ Sodium (Chloride) 250 mls @ 166.667 mls/hr IV Q12H [facility] Stop: 03/25/21 08:00 Last Admin: 03/24/21 22:38 Dose: 166.667 mls/hr Documented by: Methylprednisolone Sodium Succinate (Methylprednisolone Sodium Succinate 40 Mg/1 Ml Sdv) 40 mg IVPUSH Q8H [facility] Last Admin: 03/20/21 03:35 Dose: 40 mg Documented by: Methylprednisolone Sodium Succinate (Methylprednisolone Sodium Succinate 40 Mg/1 Ml Sdv) 40 mg IVPUSH Q8H [facility] Last Admin: 03/23/21 13:11 Dose: 40 mg Documented by: Methylprednisolone Sodium Succinate (Methylprednisolone Sodium Succinate 40 Mg/1 Ml Sdv) 40 mg IVPUSH Q24H [facility] Last Admin: 03/24/21 08:20 Dose: 40 mg Documented by: Pantoprazole Sodium (Pantoprazole 40 Mg Vial) 40 mg IV Q12H [facility] Last Admin: 03/23/21 09:20 Dose: 40 mg Documented by: Prednisone (Prednisone 20 Mg Tab) 20 mg PO WITHBREAKFAST [facility] Last Admin: 03/27/21 07:45 Dose: 20 mg Documented by: Vancomycin HCl (Vancomycin 1 Gm Sdv) 1 gm IV .PHARMACY TO DOSE DELMI Stop: 03/20/21 08:00 - Exam Quality Assessment: Supplemental Oxygen General: Alert, Oriented, Cooperative, No Acute Distress Lungs: Normal Respiratory Effort GI/Abdominal Exam: Soft, No Distention Extremities: No Pedal Edema Psy/Mental Status: Alert, Normal Affect - Patient Data Lab Results Last 24 hrs: Laboratory Results - last 24 hr 03/29/21 03/29/21 Range/Units 04:29 04:29 Hgb 8.7 L (12.0-15.0) g/dL C-Reactive Protein 0.60 H (0.0-0.3) mg/dL Result Diagrams: 03/29/21 04:29 03/27/21 04:30 Sepsis Event Note - Evaluation Sepsis Screening Result: No Definite Risk - Focused Exam Vital Signs: Vital Signs Temp Pulse Pulse Resp BP BP Pulse Ox 03/29/21 12:53 36.9 C 80 18 115/56 L 90 L 03/29/21 10:14 87 145/54 H 03/29/21 10:13 145/54 H 03/29/21 07:46 03/29/21 07:00 36.7 C 87 18 145/54 H 94 L 03/29/21 03:00 35.9 C L 76 18 116/46 L 93 L Pulse Ox 03/29/21 12:53 03/29/21 10:14 03/29/21 10:13 03/29/21 07:46 94 L 03/29/21 07:00 03/29/21 03:00 - Problem List Review Problem List Initiated/Reviewed/Updated: Yes - My Orders Last 24 Hours: My Active Orders 03/28/21 21:00 Apixaban [Eliquis] 5 mg PO BID - Plan Plan:: ASSESSMENT AND PLAN - ACUTE ON SUBACUTE HYPOXIC RESPIRATORY FAILURE-secondary to recent Covid pneumonia, bilateral pulmonary emboli, and probable acute bacterial pneumonia. Stable to slightly improved supplemental oxygen needs at rest but still quite hypoxic with any activity. -Continue supplemental oxygen, wean as able -Continuous pulse oximetry -prednisone taper 10 mg daily, today is day 2 of 4 BACTERIAL PNEUMONIA-most likely cause of acute worsening of shortness of breath and hypoxia. Clinically improving. He has completed antibiotic therapy. PROBABLE GI BLEED-Hemoglobin stable the past several days with no evidence for bleeding. -Recheck hemoglobin in a.m. -Protonix 40 mg po every 12 hours -Defer endoscopy unless he has further drop in his hemoglobin ACUTE BLOOD LOSS ANEMIA-hemoglobin has been stable/improving with no evidence for bleeding. -Management as above BILATERAL PULMONARY EMBOLI-associated with recent COVID-19 infection and pneumonia. -Apixaban URINARY RETENTION-doing well since Aquino catheter was removed. -Flomax 0.4 mg p.o. daily MAINTENANCE ISSUES -DVT prophylaxis; apixaban -GI prophylaxis; PPI -Nutrition; regular diet DISPOSITION-anticipate discharge to home with home oxygen and possibly home care after the hospital stay. Agapito Salazar MD
[2021-03-29] MEDS: Mirtazapine 15 MG Tab PO SCH (20:31)
[2021-03-29] MEDS: atorvaSTATin 20 MG Tab PO SCH (20:32)
[2021-03-29] MEDS: Cyproheptadine 4 MG Tab PO SCH (20:33)
[2021-03-29] MEDS: Tamsulosin 0.4 MG Cap.ER PO SCH (20:33)
[2021-03-30] MEDS: Mometasone Furoate HFA 200 mcg/Puff 13 GM Inhaler INH SCH (07:13)
[2021-03-30] MEDS: Tiotropium BR/Olodaterol HCL 4 GM Inhalation Spray 2.5mcg/1 dose; 10 doses INH SCH (07:13)
[2021-03-30] MEDS: Pantoprazole 40 MG Tab.CR PO SCH (07:27)
[2021-03-30] MEDS: predniSONE 10 MG Tab PO SCH (07:27)
[2021-03-30] MEDS: Docusate Sodium 100 MG Cap PO SCH (09:18)
[2021-03-30] MEDS: Losartan 50 MG Tab PO SCH (09:18)
[2021-03-30] MEDS: Ferrous Sulfate 325 MG Tab PO SCH (09:19)
[2021-03-30] MEDS: Apixaban 5 MG Tab PO SCH (09:19)
[2021-03-30] MEDS: Gabapentin 400 MG Cap PO SCH (09:19)
[2021-03-30] MEDS: Oxybutynin 5 MG Tab PO SCH (09:19)
[2021-03-30] MEDS: DULoxetine 30 MG Cap PO SCH (09:19)
[2021-03-30] MEDS: Thiamine 100 MG Tab PO SCH (09:20)
[2021-03-30] MEDS: Metoprolol Succinate 50 MG Tab.ER PO SCH (09:20)
--- NOTE | 2021-03-30 11:55 | PCM.DCSUM1 ---
Discharge Summary - Hospital Course Brief History: 75-year-old male with history of recent Covid illness and bilateral pulmonary emboli on systemic anticoagulation who presented with weakness, lightheadedness and dyspnea. Work-up in the emergency room revealed severe anemia as well as bilateral infiltrates noted on the CT scan. He had increased hypoxia from his most recent baseline. He was sent here for a direct admission since no beds were available in his home region. Diagnosis: Stroke: No - Discharge Data Discharge Date: 03/30/21 Discharge Disposition: Home, W Home Health Agency 06 Condition: Fair - Referral to Home Health Date of Face to Face Encounter: 03/30/21 Reason for Homebound Status: covid 19 pneumonia with hypoxia, bilateral PE's Primary Care Physician: PCP Unknown Skilled Need: PT - Discharge Diagnosis/Problem(s) (1) Gastrointestinal hemorrhage SNOMED Code(s): 51361854 ICD Code: K92.2 - GASTROINTESTINAL HEMORRHAGE, UNSPECIFIED Status: Acute Qualifiers: GI bleed type/associated pathology: unspecified gastrointestinal hemorrhage type Qualified Code(s): K92.2 - Gastrointestinal hemorrhage, unspecified (2) Anemia due to blood loss, acute SNOMED Code(s): 784505607 ICD Code: D62 - ACUTE POSTHEMORRHAGIC ANEMIA Status: Acute (3) Pneumonia due to COVID-19 virus SNOMED Code(s): 649669285524583678 ICD Code: U07.1 - COVID-19; J12.82 - PNEUMONIA DUE TO CORONAVIRUS DISEASE 2018 Status: Acute (4) Community acquired bacterial pneumonia SNOMED Code(s): 782282882, 402615049 ICD Code: J15.9 - UNSPECIFIED BACTERIAL PNEUMONIA Status: Acute (5) Acute respiratory failure with hypoxia SNOMED Code(s): 27690431, 684342628 ICD Code: J96.01 - ACUTE RESPIRATORY FAILURE WITH HYPOXIA Status: Acute (6) Bilateral pulmonary embolism SNOMED Code(s): 63073683 ICD Code: I26.99 - OTHER PULMONARY EMBOLISM WITHOUT ACUTE COR PULMONALE Status: Acute - Patient Summary/Data Consults: Consultations 03/26/21 14:13 PT Evaluation and Treatment [CONS] Routine Please Evaluate and Treat. PT Reason for Consult: Strengthening This query below is only for informational purposes and is not editable. Admission Diagnosis/Problem: Hypoxia Hospital Course: Jose A presented initially to the hospital in [place] where he lives for evaluation of increasing dyspnea and lightheadedness and syncope. Work-up in the emergency room revealed evidence for significant anemia with a hemoglobin just above 7. This is occurring in the setting of recent Covid infection and bilateral pulmonary emboli on systemic anticoagulation. No beds were available at that facility or any facilities nearby so he was sent here for admission and further management. He did have a slight increase in his supplemental oxygen requirement compared to that which she had been using at home. CT scan did suggest bilateral infiltrates consistent with pneumonia on top of his recent Covid infection. At the time of admission he was started on broad-spectrum antibiotics. Initially his anticoagulation was held and then he was started on enoxaparin. He did receive blood via transfusion. Unfortunately his respiratory status declined and he ended up requiring high flow nasal cannula and then heated/high flow nasal cannula. Endoscopy was considered but was deferred because of the severity of his respiratory compromise. We did start him on a twice daily proton pump inhibitor with the idea that this could be an upper GI bleed with recent stress from his Covid infection and he had been on steroids. Over the next few days we did see a slow but steady improvement in his respiratory status. Eventually were able to wean him off of the heated/high flow and transition him to a high flow and then a regular nasal cannula. His hemoglobin level has remained stable for several days. There has been no evidence for gastrointestinal bleeding. We did transition him from the therapeutic dose enoxaparin back to apixaban and have continued to see that he has been clinically stable. Since there is no evidence for ongoing bleeding in his hemoglobin is now slowly improving the surgical team feels that endoscopy is not warranted at this point and I agree with that assessment. This may be necessary if he has additional bleeding but as of right now he is doing well. We have been able to wean him down to 3 L of oxygen at rest. He does continue to be hypoxic with activity but has minimal symptoms and rebounds fairly quickly when he does rest afterwards. We were hoping to see a little more improvement but he feels well enough to go home and I think he is safe for discharge home at this point. He is requiring 3 L at rest and 5 L with activity. He has completed adequate antibiotic therapy for the pneumonia and respiratory mazariegos is doing better each day. We have been tapering his steroids down throughout the course of the hospital stay and he has a few days left of the taper as outlined in his medication section. He will stay on the apixaban as previously prescribed for the pulmonary emboli. He was interested in home care to provide physical therapy services after his discharge home. He has home care and home oxygen set up through the [place]. - Patient Instructions Diet: Regular Diet as Tolerated Activity: As Tolerated Showering/Bathing: May Shower Notify Provider of: Fever, Increased Pain Other/Special Instructions: 1. You were in the hospital for management of suspected gastrointestinal bleeding with anemia due to blood loss. This bleeding episode occurred in the setting of systemic anticoagulation following your Covid illness and pulmonary emboli. Your hemoglobin level has remained stable and we have not seen any evidence of bleeding during the hospital stay. We have transitioned you back to the apixaban and continue to see a stable to improving hemoglobin. Since the bleeding has appeared to stop and your respir atory status is not ideal the surgical team has recommended that we defer any endoscopy at this time. Because the bleeding has stopped and not recurred I think this is a safe plan. We have had you on an acid blocking medication and the most likely source of bleeding would have been from the stomach. Since this appears to be healing well I would recommend that you continue to take the pantoprazole twice daily for 1 month. If you have additional bleeding or a drop in her hemoglobin we may need to revisit the endoscopy but for now you seem to be doing well and additional work-up is not indicated at this time. You should continue to take your iron supplement twice daily to help give your body the building blocks for new red blood cells. 2. You have recently recovered from Covid and had worsening of your respiratory status that we suspect was a combination of the pulmonary emboli and a community-acquired pneumonia. You have completed adequate antibiotic therapy. You are on anticoagulation for the emboli. Your condition has been improving but you have not recovered completely as of yet. You should use 3 L of oxygen at rest and may bump your oxygen up to 5 L with activity. I would anticipate that you will continue to see desaturations with activity but hopefully these will be less and less over the next several days or several weeks and we can wean down your oxygen. 3. Ref erral to home health care - PT to improve strength and endurance following a series of acute medical problems leading to generalized weakness and dyspnea with exertion. 4. Follow up with your primary care provider in 1 to 2 weeks or sooner if symptoms do not continue to get better or if they get worse - Discharge Plan *PRESCRIPTION DRUG MONITORING PROGRAM REVIEWED*: Not Applicable *COPY OF PRESCRIPTION DRUG MONITORING REPORT IN PATIENT JOHNNA: Not Applicable Prescriptions/Med Rec: predniSONE [Prednisone] 5 mg PO DAILY #9 tablet Pantoprazole [ProTONIX] 40 mg PO BIDAC #60 tab.cr Home Medications: Home Meds Cyproheptadine HCl 4 mg PO BEDTIME 03/19/21 [History] DULoxetine HCl [Cymbalta] 30 mg PO BID 03/19/21 [History] Docusate Sodium 100 mg PO DAILY 03/19/21 [History] Ferrous Sulfate 325 mg PO BID 03/19/21 [History] Gabapentin [Neurontin] 1,200 mg PO BID 03/19/21 [History] Losartan Potassium 50 mg PO DAILY 03/19/21 [History] Metoprolol Succinate 50 mg PO QAM 03/19/21 [History] Mirtazapine 30 mg PO BEDTIME 03/19/21 [History] Multivitamin 1 tab PO DAILY 03/19/21 [History] Oxybutynin 5 mg PO DAILY 03/19/21 [History] Sennosides/Docusate Sodium [Senna-Docusate Sodium Tablet] 1 - 2 tab PO BID 03/19/21 [History] Thiamine [Vitamin B-1] 100 mg PO DAILY 03/19/21 [History] atorvaSTATin [Lipitor] 40 mg PO BEDTIME 03/19/21 [History] Mometasone Furoate 200mcg [Asmanex HFA 200mcg] 2 puff PO BID 03/20/21 [History] Tiotropium Br/Olodaterol HCl [Stiolto Respimat Inhal [place]] 2 inhalation PO DAILY 03/20/21 [History] Apixaban [Eliquis] 5 mg PO BID 03/30/21 [History] Pantoprazole [ProTONIX] 40 mg PO BIDAC #60 tab.cr 03/30/21 [Rx] predniSONE [Prednisone] 5 mg PO DAILY #9 tablet 03/30/21 [Rx] Oxygen Therapy Mode: Nasal Cannula Oxygen Flow Rate (L/min): 3 Patient Handouts: Hypoxia, Fall Prevention in the Home, Adult, Aiji-yc-Ntka, Pulmonary Embolism - Discharge Summary/Plan Comment DC Time >30 min.: Yes Total # of Minutes for Discharge Time: 45-complex discharge with multiple recent medical problems and setting up home care - Patient Data Vitals - Most Recent: Last Vital Signs Temp 36.7 C 03/30/21 11:00 Pulse 91 03/30/21 11:00 Resp 18 03/30/21 11:00 BP 126/54 L 03/30/21 11:00 Pulse Ox 93 L 03/30/21 11:00 Weight - Most Recent: 87.18 kg I&O - Last 24 hours: Intake & Output 03/29/21 03/30/21 03/30/21 22:59 06:59 14:59 Intake Total 2300 240 600 Output Total 2750 450 350 Balance -450 -210 250 Med Orders - Current: Current Medications Acetaminophen (Acetaminophen 325 Mg Tab) 650 mg PO Q4H PRN PRN Reason: Pain (Mild 1-3)/fever Apixaban (Apixaban 5 Mg Tab) 5 mg PO BID [facility] Last Admin: 03/30/21 09:19 Dose: 5 mg Documented by: Atorvastatin Calcium (Atorvastatin 20 Mg Tab) 40 mg PO BEDTIME [facility] Last Admin: 03/29/21 20:32 Dose: 40 mg Documented by: Cyproheptadine HCl (Cyproheptadine 4 Mg Tab) 4 mg PO BEDTIME [facility] Last Admin: 03/29/21 20:33 Dose: 4 mg Documented by: Docusate Sodium (Docusate Sodium 100 Mg Cap) 100 mg PO DAILY [facility] Last Admin: 03/30/21 09:18 Dose: 100 mg Documented by: Duloxetine HCl (Duloxetine 30 Mg Cap) 30 mg PO BID [facility] Last Admin: 03/30/21 09:19 Dose: 30 mg Documented by: Ferrous Sulfate (Ferrous Sulfate 325 Mg Tab) 325 mg PO BID [facility] Last Admin: 03/30/21 09:19 Dose: 325 mg Documented by: Gabapentin (Gabapentin 400 Mg Cap) 1,200 mg PO BID [facility] Last Admin: 03/30/21 09:19 Dose: 1,200 mg Documented by: Losartan Potassium (Losartan 50 Mg Tab) 50 mg PO DAILY [facility] Last Admin: 03/30/21 09:18 Dose: 50 mg Documented by: Metoprolol Succinate (Metoprolol Succinate 50 Mg Tab.Er) 50 mg PO QAM [facility] Last Admin: 03/30/21 09:20 Dose: 50 mg Documented by: Mirtazapine (Mirtazapine 15 Mg Tab) 30 mg PO BEDTIME [facility] Last Admin: 03/29/21 20:31 Dose: 30 mg Documented by: Mometasone Furoate (Mometasone Furoate Hfa 200 Mcg/Puff 13 Gm Inhaler) 0 gm INH BIDRT [facility] Last Admin: 03/30/21 07:13 Dose: 2 puff Documented by: Ondansetron HCl (Ondansetron 4 Mg/2 Ml Sdv) 4 mg IV Q4H PRN PRN Reason: Nausea/Vomiting Oxybutynin Chloride (Oxybutynin 5 Mg Tab) 5 mg PO DAILY [facility] Last Admin: 03/30/21 09:19 Dose: 5 mg Documented by: Pantoprazole Sodium (Pantoprazole 40 Mg Tab.Cr) 40 mg PO BIDAC [facility] Last Admin: 03/30/21 07:27 Dose: 40 mg Documented by: Polyethylene Glycol (Polyethylene Glycol 3350 Powder 17 Gm Packet) 17 gm PO DAILY PRN PRN Reason: Constipation Prednisone (Prednisone 10 Mg Tab) 10 mg PO WITHBREAKFAST [facility] Last Admin: 03/30/21 07:27 Dose: 10 mg Documented by: Sodium Chloride (Sodium Chloride 0.9% 10 Ml Syringe) 10 ml FLUSH ASDIRECTED PRN PRN Reason: Keep Vein Open Sodium Chloride (Aloe Vera/Sodium Chloride Gel 14.1 Gm Tube) 0 gm TREMAINE Q2H PRN PRN Reason: Other Last Admin: 03/27/21 08:47 Dose: 1 applic Documented by: Sodium Chloride (Sodium Chloride 0.65% Nasal [place] 45 Ml Bottle) 1 ml TREMAINE Q2H PRN PRN Reason: Nasal Dryness Last Admin: 03/27/21 09:25 Dose: 1 applic Documented by: Tamsulosin HCl (Tamsulosin 0.4 Mg Cap.Er) 0.4 mg PO BEDTIME [facility] Last Admin: 03/29/21 20:33 Dose: 0.4 mg Documented by: Thiamine HCl (Thiamine 100 Mg Tab) 100 mg PO DAILY [facility] Last Admin: 03/30/21 09:20 Dose: 100 mg Documented by: Discontinued Medications Enoxaparin Sodium (Enoxaparin 80 Mg/0.8 Ml Syringe) 80 mg SUBCUT Q12H [facility] Last Admin: 03/20/21 09:00 Dose: 80 mg Documented by: Enoxaparin Sodium (Enoxaparin 80 Mg/0.8 Ml Syringe) 80 mg SUBCUT Q12H [facility] Last Admin: 03/28/21 10:55 Dose: 80 mg Documented by: Meropenem 1 gm/ Sodium (Chloride) 100 mls @ 200 mls/hr IV Q8H [facility] Stop: 03/25/21 08:00 Last Admin: 03/25/21 04:21 Dose: 200 mls/hr Documented by: Vancomycin HCl 1.25 gm/ Sodium (Chloride) 250 mls @ 166.667 mls/hr IV Q12H [facility] Last Admin: 03/21/21 09:41 Dose: 166.667 mls/hr Documented by: Vancomycin HCl 1.5 gm/ Sodium (Chloride) 250 mls @ 166.667 mls/hr IV Q12H [facility] Last Admin: 03/22/21 21:08 Dose: 166.667 mls/hr Documented by: Vancomycin HCl 1.75 gm/ Sodium (Chloride) 250 mls @ 166.667 mls/hr IV Q12H [facility] Stop: 03/25/21 08:00 Last Admin: 03/24/21 22:38 Dose: 166.667 mls/hr Documented by: Methylprednisolone Sodium Succinate (Methylprednisolone Sodium Succinate 40 Mg/1 Ml Sdv) 40 mg IVPUSH Q8H [facility] Last Admin: 03/20/21 03:35 Dose: 40 mg Documented by: Methylprednisolone Sodium Succinate (Methylprednisolone Sodium Succinate 40 Mg/1 Ml Sdv) 40 mg IVPUSH Q8H [facility] Last Admin: 03/23/21 13:11 Dose: 40 mg Documented by: Methylprednisolone Sodium Succinate (Methylprednisolone Sodium Succinate 40 Mg/1 Ml Sdv) 40 mg IVPUSH Q24H [facility] Last Admin: 03/24/21 08:20 Dose: 40 mg Documented by: Pantoprazole Sodium (Pantoprazole 40 Mg Vial) 40 mg IV Q12H [facility] Last Admin: 03/23/21 09:20 Dose: 40 mg Documented by: Prednisone (Prednisone 20 Mg Tab) 20 mg PO WITHBREAKFAST [facility] Last Admin: 03/27/21 07:45 Dose: 20 mg Documented by: Vancomycin HCl (Vancomycin 1 Gm Sdv) 1 gm IV .PHARMACY TO DOSE [facility] Stop: 03/20/21 08:00 *Q Meaningful Use (DIS) - VTE *Q VTE Pharmacological Contraindications *Q: Active Hemorrhage
== END 2021-03-30 14:40 | disposition home health service (06) | DRG 193 ==
LOC: JP.MS 18:08
PROVIDERS: ADMIT Hospitalist; ATTEND Internal Medicine
PROC: 5A0955A Assistance with Respiratory Ventilation, Greater than 96 Consecutive Hours, High Flow/Velocity Cannula (ICD-10-PCS; principal; 2021-03-19)
PROC: XW033N5 Introduction of Meropenem-vaborbactam Anti-infective into Peripheral Vein, Percutaneous Approach, New Technology Group 5 (ICD-10-PCS; 2021-03-25)
DX: J15.9 Unspecified bacterial pneumonia (principal); J96.01 Acute respiratory failure with hypoxia; I26.99 Other pulmonary embolism without acute cor pulmonale; K92.2 Gastrointestinal hemorrhage, unspecified; D62 Acute posthemorrhagic anemia; J44.0 Chronic obstructive pulmonary disease with (acute) lower respiratory infection; H91.90 Unspecified hearing loss, unspecified ear; H54.7 Unspecified visual loss; R33.9 Retention of urine, unspecified; U09.9 Post COVID-19 condition, unspecified; Z88.6 Allergy status to analgesic agent; Z88.1 Allergy status to other antibiotic agents; Z88.5 Allergy status to narcotic agent; Z88.2 Allergy status to sulfonamides; Z79.899 Other long term (current) drug therapy; Z86.718 Personal history of other venous thrombosis and embolism; Z87.891 Personal history of nicotine dependence; Z86.73 Personal history of transient ischemic attack (TIA), and cerebral infarction without residual deficits
CPT/HCPCS: 36415; 80048; 80053; 80202; 84145; 85018; 85025; 85379; 86140; 86850; 86900; 86901; 86920; 86922; 94640; 94762; 97140-GP; 97162-GP; 97530-GP; 97535-GP; A9270-GY; C9113; J1650; J2185; J2920; J3370; J3490; J7050; J7512